=== PATIENT | male | born 1965 | race Caucasian/White ===

== ENCOUNTER 2020-03-02 17:57 | Emergency (ER) | payer BC, SELFPAY ==
[2020-03-02 18:02] VITALS: BMI 29.0
[2020-03-02 18:07] VITALS: BP 102/79; PULSE 116; RESP 40; TEMP 39.3; O2SAT 94
--- NOTE | 2020-03-02 18:20 | XR_ITS ---
WS: [id number] EXAM: AP CHEST: PORTABLE UPRIGHT DATE OF EXAM: 03/02/2020, 1837 hours COMPARISON: Chest x-ray from 09/10/2017. HISTORY: Patient is 54 years old with dyspnea. FINDINGS: The cardiac silhouette is normal in size. The mediastinal contours show interval sternotomy wires from prior surgical procedure. Otherwise similar.. The pulmonary vascularity is normal. Chronic darryl ng changes again seen. There is interval development of small amount right pleural fluid. Slight infi ltrate in the right lung base. Vast majority of this is felt to represent fibrotic change. Whether th e changes represent progression of disease versus a subtle acute pneumonitis is uncertain. An acute p neumonitis cannot be excluded. Chronic changes in the left lung without consolidation on the left. N o pneumothorax. No acute bony abnormality is seen. XR/XR chest 1V portable [id number] IMPRESSION: Chronic lung changes with underlying fibrosis felt to be present. Small new rig ht pleural effusion with some minimal increase infiltrate in the right lung bas e suggesting a superimposed small pneumonitis versus progression of disease. Rodriguez rveillance recommended.
--- NOTE | 2020-03-02 18:21 | ECG_ITS ---
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 Measurements Intervals [place] Rate: 114 P: 20 NV: 107 QRS: 25 QRSD: 103 T: 60 QT: 326 QTc: 449 Interpretive Statements SINUS TACHYCARDIA WITH SHORT NV INTERVAL ABNORMAL RHYTHM ECG No previous ECG available for comparison Electronically Signed On 03-03-2020 20:19:08 CDT by Jesus Champagne M.D. [id number]
[2020-03-02 18:42] LABS: Basophils # 0.1 10^3/uL (0.0-0.1); Basophils % 1.2 %; Eosinophils # 0.8 10^3/uL (0.0-0.8); Eosinophils % 9.1 %; Hematocrit 38.3 % (42.0-52.0); Hemoglobin 11.9 g/dL (11.7-16.6); Lymphocytes # 0.6 10^3/uL (0.8-4.8); Lymphocytes % 7.3 %; Mean Corpuscular HGB Conc 31.1 g/dL (30.0-36.0); Mean Corpuscular Hemoglobin 25.1 pg (28.0-34.0); Mean Corpuscular Volume 80.8 fL (80-94); Mean Platelet Volume 10.6 fL (7.4-10.4); Monocytes # 1.1 10^3/uL (0.2-0.9); Monocytes % 12.9 %; Neutrophils # 5.66 10^3/uL (1.8-7.7); Neutrophils % 66.9 %; Nucleated Red Blood Cells % 0 %; Platelet Count 278 10^3/cmm (130-400); Red Blood Count 4.74 10^6/uL (4.1-5.3); Red Cell Distribution Width 14.8 % (12.1-15.1); White Blood Count 8.5 10^3/uL (4.0-10.0)
[2020-03-02 18:44] LABS: ABG PCO2 27.9 mmHg (35-45); ABG PH Result 7.52 (7.35-7.45); Alveolar-Arterial Oxygen Gradi 5.5 mmHg (5-10); Arterial Blood Gas Hematocrit 36.2 % (42-52); Base Excess ABG 0.7 mmol/L (-2.0-2.0); Blood Gas Allen Test Pos; Blood Gas Operator Identificat MONRO; Blood Gas Sample Site Radial, right; Blood Gas Sample Type Arterial; Carboxyhemoglobin 1.1 %THgb (0.4-20.1); HCO3 ABG 22.7 mmol/L (22-26); HGB O2 Sat 93.7 % (95-100); Ionized Calcium Level - ABG 1.1 mmol/L (1.1-1.4); Methemoglobin 0.6 % (0.4-1.5); Oxygen Device ROOM AIR; Oxygen Saturation ABG 95.4; PO2 ABG 71.8 mmHg (80.0-100.0); Potassium Level - ABG 4.1 mmol/L (3.5-5.0); Total Hemoglobin 11.8 g/dL (14-18)
[2020-03-02 18:55] LABS: INR 1.06 (0.8-1.2)
[2020-03-02 19:07] LABS: Lactic Sepsis W/Reflex 2.3 mmol/L (0.5-2.2)
[2020-03-02 19:08] LABS: Alanine Aminotransferase 12 U/L (0-41); Albumin Level 3.3 g/dL (3.5-5.2); Alkaline Phosphatase 43 IU/L (40-130); Anion Gap 19.2 (5-19); Aspartate Amino Transferase 14 U/L (0-40); Blood Urea Nitrogen 18 mg/dL (6-20); Carbon Dioxide 21 mmol/L (22-29); Chloride 96 mmol/L (98-107); Globulin 3.3 g/dL (1.3-4.6); Glucose 143 mg/dL (65-115); Magnesium 1.3 mg/dL (1.7-2.3); Osmolality Calculated 273 mOsm/kg (285-295); Potassium 4.2 mmol/L (3.5-5.1); Sodium 132 mmol/L (136-145); Total Bilirubin 0.3 mg/dL (0.15-1.2); Total Protein 6.6 g/dL (6.6-8.7)
[2020-03-02 19:09] LABS: Troponin(5th) Baseline 24 ng/L (0-15)
[2020-03-02 19:36] LABS: Influenza A by IFA Negative (Negative); Influenza B by IFA Negative (Negative); SARS Covid-2 Antigen Negative (Negative)
[2020-03-02 19:37] LABS: Urine Appearance Clear (CLEAR); Urine Color Yellow (Yellow); pH Urine 7 (5-7)
[2020-03-02 19:38] LABS: Add Urine Culture? No; Bacteria Urine TRACE; Bilirubin Urine Neg (NEGATIVE); Blood Urine Neg (Negative); Glucose Urine UA Norm (Normal); Ketones Urine Negative (Negative); Leukocyte Esterase Urine Negative (Negative); Nitrate Urine Negative (Negative); Protein Urine Neg (Negative); Renal Epithelial Cells Urine N /hpf; Urobilinogen Urine Norm (Negative)
[2020-03-02 19:57] VITALS: BP 106/75; BP 96/53; PULSE 103; PULSE 81; RESP 20; RESP 31; TEMP 36.8; O2SAT 94; O2SAT 97
[2020-03-02] MEDS: piperacillin-tazobactam 3.375 GM in sodium chloride 0.9% (plus) 50 ML IV (20:15)
--- NOTE | 2020-03-02 20:21 | ECG_ITS ---
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 Measurements Intervals [place] Rate: 104 P: 27 DC: 120 QRS: 4 QRSD: 94 T: 48 QT: 343 QTc: 453 Interpretive Statements SINUS TACHYCARDIA ABNORMAL RHYTHM ECG Compared to ECG 03/02/2020 18:59:40 Short DC interval no longer present Electronically Signed On 03-03-2020 20:26:11 CDT by Jesus Champagne M.D. [id number]
[2020-03-02 20:24] LABS: Reflex Lactate Order REFLEX LACTIC ORDERD
--- NOTE | 2020-03-02 20:26 | ED_ITS ---
HPI - SOB/Dyspnea General: Chief Complaint: Shortness of Breath/Dyspnea Stated Complaint: GENERALIZED WEAKNESS, POSS SEPSIS Time Seen by Provider: 03/02/20 18:19 Source: patient and family Mode of arrival: wheelchair Limitations: no limitations History of Present Illness: HPI Narrative: Brandon is a nice 54-year-old male who comes in complaining of fever, dry cough and abdominal pain. Patient states that he was recently out of the hospital, just a few days ago from a double lung transplant from [facility]. 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 Patient is on immunosuppressive medication. Patient also has a perirectal drain in place that was placed at [facility] before discharge. Patient states that he has had no nausea or vomiting or diarrhea. He is denying any other specific complaints. Associated symptoms: Reports abdominal pain and fever(s); Deny chest congestion, chest pain, diaphoresis, dizziness, extremity pain, hemoptysis, lightheadedness, nausea, orthopnea, palpitations, syncope or vomiting Review of Systems Const: Reports: fever(s), chills and body aches; Denies: fatigue, malaise or diaphoresis Eyes: Denies: change in vision, blurry vision, photophobia, eye discomfort, eye discharge or eye redness ENMT: Denies: throat pain, odynophagia, hoarseness, swelling of lips/tongue, ear or mastoid pain, ear discharge, change in hearing or nasal discharge Card: Denies: chest pain, palpitations, irregular heart rhythm, edema, lightheadedness, syncope, pre-syncope, dyspnea on exertion or orthopnea Resp: Reports: dyspnea and non-productive cough; Denies: productive cough, wheezing, hemoptysis or chest congestion GI: Reports: abdominal pain; Denies: nausea, vomiting, hematemesis, coffee ground emesis, heartburn, diarrhea, constipation, GI cramping, hematochezia or melena : Denies: flank pain, dysuria, urinary frequency, urinary urgency or hematuria Musc: Denies: neck pain, back pain, extremity pain, extremity swelling, joint pain, joint swelling, joint redness, joint warmth or joint stiffness Skin/Breast: Denies: rash, pruritus, erythema or skin tenderness Neuro: Denies: headache(s), numbness in extremities, weakness in extremities, sensory changes, lack of coordination, difficulty walking, dizziness, vertigo, confusion, Slurred speech present or seizure-like activity Maldonado/Lymph: Denies: easy bruising, easy bleeding, petechiae, purpura or enlarged lymph nodes All/Imm: Denies: urticaria, throat swelling, tongue swelling, facial swelling or acute wheezing PFSH ED PFSH: Medical History DM type 2 (diabetes mellitus, type 2) History of testicular cancer Lung transplant recipient Myocardial infarction Pulmonary fibrosis Surgical History History of testicular surgery Physical Exam Const: COMMON NORMALS: no acute distress, patient oriented x3, no limitations, healthy appearing and well nourished GENERAL APPEARANCE: cooperative, well kempt and well developed HENMT: COMMON NORMALS: normocephalic, atraumatic, external ears normal, EAC's normal and Normal external nose present HEAD & SCALP: normal to inspection, normocephalic and atraumatic FACE & SINUS: normal facial exam and face symmetric NOSE: Normal external nose present and Normal nares present EXTERNAL EAR: Yes external ears normal EXTERNAL AUDITORY CANAL: EAC's normal MOUTH: Normal oral and palatal mucosa present, lip normal and tongue normal Eye: COMMON NORMALS: Equal, round and reactive pupils present and conjunctivae normal GENERAL EYE: appearance normal, both eyes and all related structures ALIGNMENT: Yes alignment normal PERIORBITAL: periorbital findings normal EYELID: eyelids normal CONJUNCTIVA: Yes conjunctivae normal SCLERA: sclerae normal PUPIL: Yes Equal, round and reactive pupils present Neck/C-Spine: COMMON NORMALS: full ROM, no lymphadenopathy, supple, no meningeal signs and no JVD GENERAL: Yes normal visual inspection and Yes trachea midline Chest: COMMONS NORMALS: normal inspection of the chest and normal palpation of entire chest wall Resp: COMMON NORMALS: normal respiratory effort, No retractions, No use of accessory muscles and clear to auscultation bilaterally EFFORT & INSPECTION: Yes able to speak in complete sentences and Yes symmetric chest movement AUSCULTATION: clear to auscultation bilaterally, no crackles, no rales, no rhonchi and no wheezes Cardio: COMMON NORMALS: no JVD, regular rate, regular rhythm, S1 normal heart sound present and S2 normal heart sound present RATE: regular rate RHYTHM: regular rhythm HEART SOUNDS: S1 normal heart sound present, S2 normal heart sound present, no click, no gallops, no murmurs, no rubs and abnormal split S2 GI: COMMON NORMALS: Soft to palpation and No hepatosplenomegaly present PALPATION: Yes Soft to palpation, No Tenderness to palpation present (GI), No Guarding due to palpation present (GI), No Rigid due to palpation, Yes No hepatosplenomegaly present, No Hernia present, No Palpable mass present, No Pulsatile mass present and Yes Other GI palpation findings present (Perirectal drain in place without any evidence of surrounding cellulitis) : COMMON NORMALS: Yes no CVA tenderness BLADDER/KIDNEY EXAM: Yes no CVA tenderness Back/Pelvis: COMMON NORMALS: no CVA tenderness, thoracic and lumbar spine normal to inspection, no thoracic nor lumbar tenderness and thoraco-lumbar ROM normal Extremity: COMMON NORMALS: normal to inspection, full ROM, capillary refill normal, no joint enlargement, no clubbing, cyanosis or edema and no calf tenderness Neuro: COMMON NORMALS: patient oriented x3, CN's II-XII intact bilaterally, moves all extremities, no focal motor deficits and no sensory deficits noted MENINGEAL SIGNS: Yes no meningeal signs SPEECH: speech normal Psych: COMMON NORMALS: mental status grossly normal, Normal thought process present, cooperative, normal affect, speech normal and activity/motor behavior normal APPEARANCE: Yes well kempt SPEECH: Yes normal speech THOUGHT PROCESS: Normal thought process present Skin: COMMON NORMALS: no rashes or lesions noted, turgor normal, no jaundice, no petechiae and no mottling GENERAL SKIN EXAM: no rashes or lesions noted and turgor normal Course Vital Signs: Vital signs: Vital Signs Temperature 98.3 F 03/02/20 19:57 Pulse Rate 81 03/02/20 19:57 Respiratory Rate 20 H 03/02/20 19:57 Blood Pressure 96/53 03/02/20 19:57 Pulse Oximetry 97 03/02/20 19:57 MDM - SOB/Dyspnea MDM Narrative: Medical decision making narrative: Arrival -Mr. Chi is a nice 54-year-old male who arrives with fever, cough, abdominal pain and is on immunosuppressive medications and a recent lung transplant recipient. Patient's blood pressure stable at this time but I will treat his fever and work-up is source of infection. Differential scans extensive including neutropenic fever, pneumonia, abdominal source for infection among many others. We will go ahead and medicate the patient for pain and fever as well. Transfer -Case reviewed with Dr. Melara out of [facility] he agrees to accept the patient in transfer. The patient is clinically stable at this time without hypotension but there is no definitive source for his infection. He agreed with empiric coverage with Zosyn and vancomycin. Will await further bed number for transfer. Lab Data: Attestation: I reviewed the patient's lab results. Labs: Lab Results 03/02/20 03/02/20 03/02/20 Range/Units 18:30 18:30 18:30 WBC 8.5 (4.0-10.0) 10^3/ uL RBC 4.74 (4.1-5.3) 10^6/u L Hgb 11.9 (11.7-16.6) g/dL Hct 38.3 L (42.0-52.0) % MCV 80.8 (80-94) fL MCH 25.1 L (28.0-34.0) pg MCHC 31.1 (30.0-36.0) g/dL RDW 14.8 (12.1-15.1) % Plt Count 278 (130-400) 10^3/c mm MPV 10.6 H (7.4-10.4) fL Neut % (Auto) 66.9 % Lymph % (Auto) 7.3 % Barren % (Auto) 12.9 % Eos % (Auto) 9.1 % Baso % (Auto) 1.2 % Neut # (Auto) 5.66 (1.8-7.7) 10^3/u L Lymph # (Auto) 0.6 L (0.8-4.8) 10^3/u L Barren # (Auto) 1.1 H (0.2-0.9) 10^3/u L Eos # (Auto) 0.8 (0.0-0.8) 10^3/u L Baso # (Auto) 0.1 (0.0-0.1) 10^3/u L Nucleated RBC % (a uto) 0 % Nucleated RBCs # 0.0 /100WBC PT 14.20 (12.1-14.9) SECO NDS INR 1.06 (0.8-1.2) Specimen Type Sample Site ABG pH (7.35-7.45) ABG pCO2 (35-45) mmHg ABG pO2 (80.0-100.0) mmH g ABG HCO3 (22-26) mmol/L ABG O2 Saturation ABG Base Excess (-2.0-2.0) mmol/ L Kash Test A-a O2 Gradient (5-10) mmHg Hematocrit (42-52) % Hgb O2 Saturation (95-100) % Carboxyhemoglobin (0.4-20.1) %THgb Methemoglobin (0.4-1.5) % Total Hemoglobin (14-18) g/dL Ionized Calcium (1.1-1.4) mmol/L O2 Delivery Device Methods Specialist ID Sodium 132 L (136-145) mmol/L Potassium 4.2 (3.5-5.1) mmol/L Chloride 96 L (98-107) mmol/L Carbon Dioxide 21 L (22-29) mmol/L Anion Gap 19.2 H (5-19) BUN 18 (6-20) mg/dL Creatinine 0.8 (0.7-1.2) mg/dL GFR Calculation 100.0 (90-130) mL/min Glucose 143 H (65-115) mg/dL Calculated Osmolal ity 273 L (285-295) mOsm/k g Lactic Acid (0.5-2.2) mmol/L Calcium 9.0 (8.5-10.5) mg/dL Magnesium 1.3 L (1.7-2.3) mg/dL Total Bilirubin 0.3 (0.15-1.2) mg/dL AST 14 (0-40) U/L ALT 12 (0-41) U/L Alkaline Phosphata se 43 (40-130) IU/L Troponin T Baselin e (0-15) ng/L Troponin T 120 Min cabazon (0-15) ng/L Delta Troponin T (0-10) ABS# Total Protein 6.6 (6.6-8.7) g/dL Albumin 3.3 L (3.5-5.2) g/dL Globulin 3.3 (1.3-4.6) g/dL Urine Color (Yellow) Urine Appearance (CLEAR) Urine pH (5-7) Ur Specific Gravit y (1.005-1.030) Urine Protein (Negative) Urine Glucose (UA) (Normal) Urine Ketones (Negative) Urine Blood (Negative) Urine Nitrate (Negative) Urine Bilirubin (NEGATIVE) Urine Urobilinogen (Negative) mg/dL Ur Leukocyte Em ase (Negative) Urine RBC (0-2) /hpf Urine WBC (0-5) /hpf Ur Squamous Epith Cells (0-5) Ur Transition Epit h Cell /hpf Ur Renal Epithelia l Cell /hpf Amorphous Sediment Urine Bacteria (NONE) Influenza Type A A g (Negative) Influenza Type B A g (Negative) SARS-CoV-2 Ag (Rap id) (Negative) 03/02/20 03/02/20 03/02/20 Range/Units 18:30 18:30 18:31 WBC (4.0-10.0) 10^3/ uL RBC (4.1-5.3) 10^6/u L Hgb (11.7-16.6) g/dL Hct (42.0-52.0) % MCV (80-94) fL MCH (28.0-34.0) pg MCHC (30.0-36.0) g/dL RDW (12.1-15.1) % Plt Count (130-400) 10^3/c mm MPV (7.4-10.4) fL Neut % (Auto) % Lymph % (Auto) % Barren % (Auto) % Eos % (Auto) % Baso % (Auto) % Neut # (Auto) (1.8-7.7) 10^3/u L Lymph # (Auto) (0.8-4.8) 10^3/u L Barren # (Auto) (0.2-0.9) 10^3/u L Eos # (Auto) (0.0-0.8) 10^3/u L Baso # (Auto) (0.0-0.1) 10^3/u L Nucleated RBC % (a uto) % Nucleated RBCs # /100WBC PT (12.1-14.9) SECO NDS INR (0.8-1.2) Specimen Type Arterial Sample Site Radial, right ABG pH 7.52 H (7.35-7.45) ABG pCO2 27.9 L (35-45) mmHg ABG pO2 71.8 L (80.0-100.0) mmH g ABG HCO3 22.7 (22-26) mmol/L ABG O2 Saturation 95.4 ABG Base Excess 0.7 (-2.0-2.0) mmol/ L Kash Test Pos A-a O2 Gradient 5.5 (5-10) mmHg Hematocrit 36.2 L (42-52) % Hgb O2 Saturation 93.7 L (95-100) % Carboxyhemoglobin 1.1 (0.4-20.1) %THgb Methemoglobin 0.6 (0.4-1.5) % Total Hemoglobin 11.8 L (14-18) g/dL Ionized Calcium 1.1 (1.1-1.4) mmol/L O2 Delivery Device Room air Methods Specialist ID [place] Sodium 133.0 (136-145) mmol/L Potassium 4.1 (3.5-5.1) mmol/L Chloride (98-107) mmol/L Carbon Dioxide (22-29) mmol/L Anion Gap (5-19) BUN (6-20) mg/dL Creatinine (0.7-1.2) mg/dL GFR Calculation (90-130) mL/min Glucose 151.0 H (65-115) mg/dL Calculated Osmolal ity (285-295) mOsm/k g Lactic Acid 2.3 H (0.5-2.2) mmol/L Calcium (8.5-10.5) mg/dL Magnesium (1.7-2.3) mg/dL Total Bilirubin (0.15-1.2) mg/dL AST (0-40) U/L ALT (0-41) U/L Alkaline Phosphata se (40-130) IU/L Troponin T Baselin e 24 H (0-15) ng/L Troponin T 120 Min cabazon (0-15) ng/L Delta Troponin T (0-10) ABS# Total Protein (6.6-8.7) g/dL Albumin (3.5-5.2) g/dL Globulin (1.3-4.6) g/dL Urine Color (Yellow) Urine Appearance (CLEAR) Urine pH (5-7) Ur Specific Gravit y (1.005-1.030) Urine Protein (Negative) Urine Glucose (UA) (Normal) Urine Ketones (Negative) Urine Blood (Negative) Urine Nitrate (Negative) Urine Bilirubin (NEGATIVE) Urine Urobilinogen (Negative) mg/dL Ur Leukocyte Em ase (Negative) Urine RBC (0-2) /hpf Urine WBC (0-5) /hpf Ur Squamous Epith Cells (0-5) Ur Transition Epit h Cell /hpf Ur Renal Epithelia l Cell /hpf Amorphous Sediment Urine Bacteria (NONE) Influenza Type A A g (Negative) Influenza Type B A g (Negative) SARS-CoV-2 Ag (Rap id) (Negative) 03/02/20 03/02/20 03/02/20 Range/Units 18:42 18:56 18:56 WBC (4.0-10.0) 10^3/ uL RBC (4.1-5.3) 10^6/u L Hgb (11.7-16.6) g/dL Hct (42.0-52.0) % MCV (80-94) fL MCH (28.0-34.0) pg MCHC (30.0-36.0) g/dL RDW (12.1-15.1) % Plt Count (130-400) 10^3/c mm MPV (7.4-10.4) fL Neut % (Auto) % Lymph % (Auto) % Barren % (Auto) % Eos % (Auto) % Baso % (Auto) % Neut # (Auto) (1.8-7.7) 10^3/u L Lymph # (Auto) (0.8-4.8) 10^3/u L Barren # (Auto) (0.2-0.9) 10^3/u L Eos # (Auto) (0.0-0.8) 10^3/u L Baso # (Auto) (0.0-0.1) 10^3/u L Nucleated RBC % (a uto) % Nucleated RBCs # /100WBC PT (12.1-14.9) SECO NDS INR (0.8-1.2) Specimen Type Sample Site ABG pH (7.35-7.45) ABG pCO2 (35-45) mmHg ABG pO2 (80.0-100.0) mmH g ABG HCO3 (22-26) mmol/L ABG O2 Saturation ABG Base Excess (-2.0-2.0) mmol/ L Kash Test A-a O2 Gradient (5-10) mmHg Hematocrit (42-52) % Hgb O2 Saturation (95-100) % Carboxyhemoglobin (0.4-20.1) %THgb Methemoglobin (0.4-1.5) % Total Hemoglobin (14-18) g/dL Ionized Calcium (1.1-1.4) mmol/L O2 Delivery Device Methods Specialist ID Sodium (136-145) mmol/L Potassium (3.5-5.1) mmol/L Chloride (98-107) mmol/L Carbon Dioxide (22-29) mmol/L Anion Gap (5-19) BUN (6-20) mg/dL Creatinine (0.7-1.2) mg/dL GFR Calculation (90-130) mL/min Glucose (65-115) mg/dL Calculated Osmolal ity (285-295) mOsm/k g Lactic Acid (0.5-2.2) mmol/L Calcium (8.5-10.5) mg/dL Magnesium (1.7-2.3) mg/dL Total Bilirubin (0.15-1.2) mg/dL AST (0-40) U/L ALT (0-41) U/L Alkaline Phosphata se (40-130) IU/L Troponin T Baselin e (0-15) ng/L Troponin T 120 Min cabazon (0-15) ng/L Delta Troponin T (0-10) ABS# Total Protein (6.6-8.7) g/dL Albumin (3.5-5.2) g/dL Globulin (1.3-4.6) g/dL Urine Color Yellow (Yellow) Urine Appearance Clear (CLEAR) Urine pH 7 (5-7) Ur Specific Gravit y 1.010 (1.005-1.030) Urine Protein Neg (Negative) Urine Glucose (UA) Norm (Normal) Urine Ketones Negative (Negative) Urine Blood Neg (Negative) Urine Nitrate Negative (Negative) Urine Bilirubin Neg (NEGATIVE) Urine Urobilinogen Norm (Negative) mg/dL Ur Leukocyte Em ase Negative (Negative) Urine RBC None (0-2) /hpf Urine WBC None (0-5) /hpf Ur Squamous Epith Cells None (0-5) Ur Transition Epit h Cell None /hpf Ur Renal Epithelia l Cell N /hpf Amorphous Sediment Not Reportable Urine Bacteria Trace (NONE) Influenza Type A A g Negative (Negative) Influenza Type B A g Negative (Negative) SARS-CoV-2 Ag (Rap id) Negative (Negative) 03/02/20 Range/Units 20:05 WBC (4.0-10.0) 10^3/ uL RBC (4.1-5.3) 10^6/u L Hgb (11.7-16.6) g/dL Hct (42.0-52.0) % MCV (80-94) fL MCH (28.0-34.0) pg MCHC (30.0-36.0) g/dL RDW (12.1-15.1) % Plt Count (130-400) 10^3/c mm MPV (7.4-10.4) fL Neut % (Auto) % Lymph % (Auto) % Barren % (Auto) % Eos % (Auto) % Baso % (Auto) % Neut # (Auto) (1.8-7.7) 10^3/u L Lymph # (Auto) (0.8-4.8) 10^3/u L Barren # (Auto) (0.2-0.9) 10^3/u L Eos # (Auto) (0.0-0.8) 10^3/u L Baso # (Auto) (0.0-0.1) 10^3/u L Nucleated RBC % (a uto) % Nucleated RBCs # /100WBC PT (12.1-14.9) SECO NDS INR (0.8-1.2) Specimen Type Sample Site ABG pH (7.35-7.45) ABG pCO2 (35-45) mmHg ABG pO2 (80.0-100.0) mmH g ABG HCO3 (22-26) mmol/L ABG O2 Saturation ABG Base Excess (-2.0-2.0) mmol/ L Kash Test A-a O2 Gradient (5-10) mmHg Hematocrit (42-52) % Hgb O2 Saturation (95-100) % Carboxyhemoglobin (0.4-20.1) %THgb Methemoglobin (0.4-1.5) % Total Hemoglobin (14-18) g/dL Ionized Calcium (1.1-1.4) mmol/L O2 Delivery Device Methods Specialist ID Sodium (136-145) mmol/L Potassium (3.5-5.1) mmol/L Chloride (98-107) mmol/L Carbon Dioxide (22-29) mmol/L Anion Gap (5-19) BUN (6-20) mg/dL Creatinine (0.7-1.2) mg/dL GFR Calculation (90-130) mL/min Glucose (65-115) mg/dL Calculated Osmolal ity (285-295) mOsm/k g Lactic Acid (0.5-2.2) mmol/L Calcium (8.5-10.5) mg/dL Magnesium (1.7-2.3) mg/dL Total Bilirubin (0.15-1.2) mg/dL AST (0-40) U/L ALT (0-41) U/L Alkaline Phosphata se (40-130) IU/L Troponin T Baselin e (0-15) ng/L Troponin T 120 Min cabazon 24.27 H (0-15) ng/L Delta Troponin T 0.27 (0-10) ABS# Total Protein (6.6-8.7) g/dL Albumin (3.5-5.2) g/dL Globulin (1.3-4.6) g/dL Urine Color (Yellow) Urine Appearance (CLEAR) Urine pH (5-7) Ur Specific Gravit y (1.005-1.030) Urine Protein (Negative) Urine Glucose (UA) (Normal) Urine Ketones (Negative) Urine Blood (Negative) Urine Nitrate (Negative) Urine Bilirubin (NEGATIVE) Urine Urobilinogen (Negative) mg/dL Ur Leukocyte Em ase (Negative) Urine RBC (0-2) /hpf Urine WBC (0-5) /hpf Ur Squamous Epith Cells (0-5) Ur Transition Epit h Cell /hpf Ur Renal Epithelia l Cell /hpf Amorphous Sediment Urine Bacteria (NONE) Influenza Type A A g (Negative) Influenza Type B A g (Negative) SARS-CoV-2 Ag (Rap id) (Negative) Imaging Data^: CXR: Attestation: I personally reviewed and interpreted this imaging study as follows: My impression: No acute cardiopulmonary findings. CT Abd/Pel: Radiologist's impression: [facility] [address] [place] [address] CT Scan Report Signed Patient: Brandon Chi Unit #: [id number] : 1965 Age/Sex: 54 / M ADM Date: 03/02/20 Loc: ER Room/Bed: Attending Dr: Ordering Provider/Ordering MD: Julita Garcia DO Date of Service: 03/02/20 Procedure(s): CT abdomen pelvis w con* [id number] Accession Number(s): [id number] Report Number: [id number] PROCEDURE INFORMATION: Exam: CT Abdomen And Pelvis With Contrast Exam date and time: 03/02/2020 9:19 PM Age: 54 years old Clinical indication: Pain; Additional info: Abdominal pain TECHNIQUE: Imaging protocol: Computed tomography of the abdomen and pelvis with intravenous contrast. Radiation optimization: All CT scans at this facility use at least one of these dose optimization techniques: automated exposure control; mA and/or kV adjustment per patient size (includes targeted exams where dose is matched to clinical indication); or iterative reconstruction. Contrast material: OMNI 300; Contrast volume: 95 ml; Contrast route: INTRAVENOUS (IV); COMPARISON: [facility] Abdomen 09/24/2017 9:04 AM RADIATION DOSE METRICS: Total DLP (mGy-cm): 1286.11 FINDINGS: Pleural space: Small bilateral pleural effusions. Liver: Normal. No mass. Gallbladder and bile ducts: Normal. No calcified stones. No ductal dilation. Pancreas: Normal. No ductal dilation. Spleen: Normal. No splenomegaly. Adrenals: Normal. No mass. Kidneys and ureters: Left kidney renal cysts, no follow-up advised. Stomach and bowel: Unremarkable. No obstruction. No mucosal thickening. Appendix: No evidence of appendicitis. Intraperitoneal space: Unremarkable. No free air. No significant fluid collection. Vasculature: Unremarkable. No abdominal aortic aneurysm. Lymph nodes: Scattered enlarged retroperitoneal para-aortic lymph nodes measuring up to 2.9 cm with some surrounding edema concerning for malignancy, however, an infectious or inflammatory process are also considerations. Bladder: Unremarkable as visualized. Reproductive: Unremarkable as visualized. Bones/joints: Unremarkable. No acute fracture. Soft tissues: Unremarkable. CT/CT abdomen pelvis w con* [id number] IMPRESSION: 1. Scattered enlarged retroperitoneal para-aortic lymph nodes measuring up to 2.9 cm with some surrounding edema concerning for malignancy, however, an infectious or inflammatory process are also considerations. 2. Small bilateral pleural effusions. 3. Left kidney renal cysts, no follow-up advised. Radiation Dose CTDIVOL = (mGy): DLP = 1286.11 (mGy-cm) Dictated By: Sachin Vazquez MD Signed By: Sachin Vazquez MD Signed Date/Time: 03/02/202158 DD/ 56 EKG Data^: EKG 1: Attestation: I personally reviewed and interpreted this EKG as follows: EKG Interpretation Date: 03/02/20 EKG interpretation time: 18:59 Interpretation: Sinus tachycardia at 140 beats a minute, short ND interval, normal axis, QTC. No acute ST-T wave changes. EKG 2: Attestation: I personally reviewed and interpreted this EKG as follows: EKG Interpretation Date: 03/02/20 EKG interpretation time: 19:54 Interpretation: Sinus tachycardia at 104 beats a minute, normal axis, no blocks, normal intervals. Discharge Plan Discharge Patient Disposition: Xfer Short-Term Hosp Clinical Impression: Sepsis Qualifiers: Sepsis type: sepsis due to unspecified organism Sepsis acute organ dysfunction status: unspecified Qualified Code(s): A41.9 - Sepsis, unspecified organism Condition: Stable Referrals: Solomon Farrell MD [Primary Care Provider] - Coding Level of Care Code ED [employer] for Chg Fwd Exam Comprehensive
[2020-03-02 20:34] LABS: Troponin 5 2HR 24.27 ng/L (0-15); Troponin 5 2HR Delta 0.27 ABS# (0-10)
[2020-03-02] MEDS: magnesium sulfate premix 2 GM/50 ML PIGGYBACK IV (20:36)
--- NOTE | 2020-03-02 20:39 | CTR_ITS ---
PROCEDURE INFORMATION: Exam: CT Abdomen And Pelvis With Contrast Exam date and time: 03/02/2020 9:19 PM Age: 54 years old Clinical indication: Pain; Additional info: Abdominal pain TECHNIQUE: Imaging protocol: Computed tomography of the abdomen and pelvis with intravenous contrast. Radiation optimization: All CT scans at this facility use at least one of these dose optimization techniques: automated exposure control; mA and/or kV adjustment per patient size (includes targeted exams where dose is matched to clinical indication); or iterative reconstruction. Contrast material: OMNI 300; Contrast volume: 95 ml; Contrast route: INTRAVENOUS (IV); [place] [facility] [place]/24/[place] 9:04 AM RADIATION DOSE METRICS: Total DLP (mGy-cm): 1286.11 FINDINGS: Pleural space: Small bilateral pleural effusions. Liver: Normal. No mass. Gallbladder and bile ducts: Normal. No calcified stones. No ductal dilation. Pancreas: Normal. No ductal dilation. Spleen: Normal. No splenomegaly. Adrenals: Normal. No mass. Kidneys and ureters: Left kidney renal cysts, no follow-up advised. Stomach and bowel: Unremarkable. No obstruction. No mucosal thickening. Appendix: No evidence of appendicitis. Intraperitoneal space: Unremarkable. No free air. No significant fluid collection. Vasculature: Unremarkable. No abdominal aortic aneurysm. Lymph nodes: Scattered enlarged retroperitoneal para-aortic lymph nodes measuring up to 2.9 cm with some surrounding edema concerning for malignancy, however, an infectious or inflammatory process are also considerations. Bladder: Unremarkable as visualized. Reproductive: Unremarkable as visualized. Bones/joints: Unremarkable. No acute fracture. Soft tissues: Unremarkable. CT/CT abdomen pelvis w con* [id number] IMPRESSION: 1. Scattered enlarged retroperitoneal para-aortic lymph nodes measuring up to 2.9 cm with some surrounding edema concerning for malignancy, however, an infectious or inflammatory process are also considerations. 2. Small bilateral pleural effusions. 3. Left kidney renal cysts, no follow-up advised. Radiation Dose CTDIVOL = (mGy): DLP = 1286.11 (mGy-cm)
[2020-03-02 21:30] VITALS: BP 98/57; PULSE 87; RESP 26; O2SAT 94
[2020-03-02] MEDS: iohexol 300 mg/mL 100 mL Btl IV (21:44)
[2020-03-02] MEDS: ondansetron 2 mg/ML SDV 2 mL 4 MG IVP (22:16)
[2020-03-02 22:30] VITALS: BP 97/62; PULSE 78; RESP 17; O2SAT 96
[2020-03-02 22:44] VITALS: RESP 21; O2SAT 96
[2020-03-02] MEDS: morphine 4 mg/mL SDV 1 mL IVP (22:44)
--- NOTE | 2020-03-02 23:04 | PC.NURSE ---
REPORT GIVEN TO ALYSSA JOE ASSUMED CARE.
--- NOTE | 2020-03-03 00:21 | ECG_ITS ---
[facility] Test Date: 2020-03-03 Pat Name: Brandon Chi Department: Room: Gender: Male Privacy Director: : 1965 Requested By: Julita Bone Order Number: [id number] Barrios MD: Jesus Champagne M.D. Measurements Intervals [place] Rate: 80 P: 37 NV: 135 QRS: 17 QRSD: 97 T: 81 QT: 384 QTc: 445 Interpretive Statements SINUS RHYTHM Compared to ECG 03/02/2020 19:54:06 Sinus tachycardia no longer present Electronically Signed On 03-03-2020 20:26:30 CDT by Jesus Champagne M.D. [id number]
[2020-03-03 00:22] LABS: Troponin 5 6HR 21.25 ng/L (0-15)
[2020-03-03 00:25] LABS: Troponin 5 6HR Delta -2.75 ng/L (0-12)
[2020-03-03 00:39] LABS: Lactic Acid level (Lactate) 0.8 mmol/L (0.5-2.2)
[2020-03-03] MEDS: morphine 4 mg/mL SDV 1 mL IVP ×2 (01:47→05:39)
[2020-03-03 02:17] VITALS: BP 127/92; PULSE 80; RESP 14; O2SAT 98
[2020-03-03 03:36] VITALS: BP 130/83; PULSE 100; RESP 16; TEMP 36.8; O2SAT 95
--- NOTE | 2020-03-03 03:36 | PC.NURSE ---
Had House Sup bring down a Hospital bed for this patient and we moved him over to it for comfort.
[2020-03-03 05:33] VITALS: BP 102/58; PULSE 108; RESP 14; O2SAT 94
[2020-03-03 05:39] VITALS: RESP 18
[2020-03-03 06:35] VITALS: BP 112/66; PULSE 97; RESP 22; TEMP 36.8; O2SAT 94
[2020-03-03 07:32] VITALS: BP 117/89; PULSE 95; RESP 21; TEMP 37.3; O2SAT 93
== END 2020-03-03 08:04 | disposition short-term general hospital (02) ==
PROVIDERS: Emergency Provider Emergency Medicine; PCP Family Medicine
DX: A41.9 Sepsis, unspecified organism (principal); E11.9 Type 2 diabetes mellitus without complications; Z85.47 Personal history of malignant neoplasm of testis; Z94.2 Lung transplant status; I25.2 Old myocardial infarction
CPT/HCPCS: 12345; 36415; 36600; 71045; 74177; 80051; 80053; 81001; 82810; 83605; 83735; 83986; 84484; 85025; 85610; 87040; 87426; 87804; 93005; 96365; 96366; 96367; 96368; 96375; 96376; 99284; 99285; J0131; J0743; J2270; J2405; J2543; J3370; J3475; J7030; J7040; Q9967

== ENCOUNTER 2020-03-18 13:09 | Outpatient (CLI) | payer BC, SELFPAY ==
[2020-03-18 13:56] LABS: Basophils # 0.1 10^3/uL (0.0-0.1); Basophils % 0.9 %; Eosinophils # 0.1 10^3/uL (0.0-0.8); Eosinophils % 1.2 %; Hemoglobin 11.9 g/dL (11.7-16.6); Lymphocytes # 0.8 10^3/uL (0.8-4.8); Lymphocytes % 11.9 %; Mean Corpuscular HGB Conc 29.8 g/dL (30.0-36.0); Mean Corpuscular Hemoglobin 24.8 pg (28.0-34.0); Mean Corpuscular Volume 83.5 fL (80-94); Monocytes # 0.4 10^3/uL (0.2-0.9); Monocytes % 6.1 %; Neutrophils % 78.4 %; Nucleated Red Blood Cells % 0 %; Platelet Count 266 10^3/cmm (130-400); Red Blood Count 4.79 10^6/uL (4.1-5.3); Red Cell Distribution Width 16.1 % (12.1-15.1); White Blood Count 6.9 10^3/uL (4.0-10.0)
[2020-03-18 14:15] LABS: Alanine Aminotransferase 27 U/L (0-41); Albumin Level 3.8 g/dL (3.5-5.2); Alkaline Phosphatase 57 IU/L (40-130); Anion Gap 15.5 (5-19); Aspartate Amino Transferase 21 U/L (0-40); Blood Urea Nitrogen 16 mg/dL (6-20); Calcium 9.9 mg/dL (8.5-10.5); Carbon Dioxide 25 mmol/L (22-29); Chloride 105 mmol/L (98-107); Globulin 3.6 g/dL (1.3-4.6); Glomerular Filtration Rate 77.3 mL/min (90-130); Glucose 102 mg/dL (65-115); Osmolality Calculated 289 mOsm/kg (285-295); Potassium 4.5 mmol/L (3.5-5.1); Sodium 141 mmol/L (136-145); Total Bilirubin 0.2 mg/dL (0.15-1.2); Total Protein 7.4 g/dL (6.6-8.7)
[2020-03-22 22:07] LABS: CMV DNA By PCR <200 IU/mL; CMV DNA, QN PCR <2.30 Log IU/mL; SOURCE NOT GIVEN
== END 2020-03-18 13:10 | disposition home or self-care (01) ==
PROVIDERS: PCP Family Medicine; Visit Provider Internal Medicine Pulmonary Disease
DX: Z94.2 Lung transplant status (principal); Z48.24 Encounter for aftercare following lung transplant; Z51.81 Encounter for therapeutic drug level monitoring
CPT/HCPCS: 80053; 80197; 85025; 87496

== ENCOUNTER 2020-08-10 12:01 | Outpatient (RCR) | payer BC, SELFPAY ==
[2020-07-27] MEDS: ferric gluconate 125 MG in sodium chloride 0.9% (100 ml) 100 ML 110 MG IV (10:31)
[2020-07-27 10:36] VITALS: BP 133/80; PULSE 62; RESP 18; TEMP 36.3; O2SAT 98
[2020-08-03] MEDS: ferric gluconate 125 MG in sodium chloride 0.9% (100 ml) 100 ML 110 MG IV (10:40)
[2020-08-03 10:44] VITALS: BP 110/76; PULSE 64; RESP 18; TEMP 36.1; O2SAT 97; BMI 29.1
[2020-08-10 12:10] VITALS: BP 114/78; PULSE 64; RESP 18; TEMP 35.7; O2SAT 97
[2020-08-10] MEDS: ferric gluconate 125 MG in sodium chloride 0.9% (100 ml) 100 ML 110 MG IV (12:40)
== END 2020-08-15 23:59 | disposition home or self-care (01) ==
LOC: OPS 12:01
PROVIDERS: PCP Family Medicine; Visit Provider Family Medicine
DX: E61.1 Iron deficiency (principal)
CPT/HCPCS: 96365; J2916

== ENCOUNTER → 2020-08-24 10:47 | Day surgery (SDC) | payer BC, SELFPAY ==
[2020-08-31] MEDS: ferric gluconate 125 MG in sodium chloride 0.9% (100 ml) 100 ML 110 MG IV (11:07)
[2020-08-31 11:26] VITALS: BP 144/85; PULSE 73; RESP 18; TEMP 36.6; O2SAT 98
== END ==
PROVIDERS: PCP Family Medicine; Visit Provider Family Medicine
DX: D50.9 Iron deficiency anemia, unspecified (principal)
CPT/HCPCS: J2916

== ENCOUNTER 2020-09-07 10:53 | Outpatient (RCR) | payer BC, SELFPAY ==
[2020-08-17 11:20] VITALS: BP 105/72; PULSE 63; RESP 18; TEMP 36.4; O2SAT 99
[2020-08-17] MEDS: ferric gluconate 125 MG in sodium chloride 0.9% (100 ml) 100 ML 110 MG IV (11:21)
[2020-08-24 11:25] VITALS: BP 124/80; PULSE 67; RESP 18; TEMP 37.1; O2SAT 98
[2020-08-24 11:28] VITALS: BMI 28.8
[2020-08-24] MEDS: ferric gluconate 125 MG in sodium chloride 0.9% (100 ml) 100 ML 110 MG IV (11:55)
[2020-09-07] MEDS: ferric gluconate 125 MG in sodium chloride 0.9% (100 ml) 100 ML 110 MG IV (11:15)
[2020-09-07 11:20] VITALS: BP 125/77; PULSE 71; RESP 20; TEMP 36.1; O2SAT 96; BMI 28.8
== END 2020-09-12 23:59 | disposition home or self-care (01) ==
LOC: OPS 10:53
PROVIDERS: PCP Family Medicine; Visit Provider Family Medicine
DX: D50.9 Iron deficiency anemia, unspecified (principal)
CPT/HCPCS: 96365; J2916

== ENCOUNTER 2020-09-14 10:43 | Outpatient (RCR) | payer BC, SELFPAY ==
[2020-09-14] MEDS: ferric gluconate 125 MG in sodium chloride 0.9% (100 ml) 100 ML 110 MG IV (10:59)
[2020-09-14 13:34] VITALS: BP 145/78; PULSE 98; RESP 18; TEMP 36.6; O2SAT 97
== END 2020-10-13 23:59 | disposition home or self-care (01) ==
LOC: OPS 10:43
PROVIDERS: PCP Family Medicine; Visit Provider Family Medicine
DX: D50.9 Iron deficiency anemia, unspecified (principal)
CPT/HCPCS: 96365; J2916

== ENCOUNTER 2020-12-01 14:17 | Outpatient (CLI) | payer BC, SELFPAY ==
[2020-12-01 15:01] LABS: Basophils % 0.3 %; Eosinophils % 0.3 %; Hematocrit 42.8 % (42.0-52.0); Lymphocytes # 0.7 10^3/uL (0.8-4.8); Lymphocytes % 9.2 %; Mean Corpuscular HGB Conc 32.7 g/dL (30.0-36.0); Mean Corpuscular Hemoglobin 31.3 pg (28.0-34.0); Mean Corpuscular Volume 95.5 fL (80-94); Mean Platelet Volume 12.6 fL (7.4-10.4); Monocytes # 0.9 10^3/uL (0.2-0.9); Monocytes % 11.6 %; Neutrophils % 77.1 %; Nucleated Red Blood Cells % 0 %; Platelet Count 110 10^3/cmm (130-400); Red Blood Count 4.48 10^6/uL (4.1-5.3); Red Cell Distribution Width 12.9 % (12.1-15.1); White Blood Count 7.4 10^3/uL (4.0-10.0)
[2020-12-04 00:42] LABS: CMV DNA By PCR <200 IU/mL; CMV DNA, QN PCR <2.30 Log IU/mL; SOURCE WHOLE BLOOD
== END 2020-12-01 14:18 | disposition home or self-care (01) ==
LOC: LAB 14:19
PROVIDERS: PCP Family Medicine; Visit Provider Internal Medicine Pulmonary Disease
DX: Z48.24 Encounter for aftercare following lung transplant (principal)
CPT/HCPCS: 85025; 87496

== ENCOUNTER 2020-12-23 14:08 | Outpatient (CLI) | payer BC, SELFPAY ==
[2020-12-23 15:46] LABS: Basophils % 0.6 %; Eosinophils % 0.3 %; Hematocrit 43.3 % (42.0-52.0); Lymphocytes # 1.8 10^3/uL (0.8-4.8); Lymphocytes % 29.1 %; Mean Corpuscular HGB Conc 32.3 g/dL (30.0-36.0); Mean Corpuscular Hemoglobin 29.5 pg (28.0-34.0); Mean Corpuscular Volume 91.4 fL (80-94); Monocytes # 0.5 10^3/uL (0.2-0.9); Monocytes % 8.2 %; Neutrophils # 3.85 10^3/uL (1.8-7.7); Neutrophils % 60.9 %; Nucleated Red Blood Cells % 0 %; Platelet Count 93 10^3/cmm (130-400); Red Blood Count 4.74 10^6/uL (4.1-5.3); Red Cell Distribution Width 12.2 % (12.1-15.1); White Blood Count 6.3 10^3/uL (4.0-10.0)
[2020-12-23 16:36] LABS: Slide Review Slide Review Perform
== END 2020-12-23 14:09 | disposition home or self-care (01) ==
PROVIDERS: PCP Family Medicine; Visit Provider Internal Medicine Pulmonary Disease
DX: Z48.24 Encounter for aftercare following lung transplant (principal)
CPT/HCPCS: 36415; 85025

== ENCOUNTER 2020-12-29 15:21 | Outpatient (CLI) | payer BC, SELFPAY ==
[2021-01-02 07:49] LABS: CMV DNA By PCR 38142 IU/mL; CMV DNA, QN PCR 4.58 Log IU/mL; SOURCE WHOLE BLOOD
== END 2020-12-29 15:22 | disposition home or self-care (01) ==
LOC: LAB 15:25
PROVIDERS: PCP Family Medicine; Visit Provider Internal Medicine Pulmonary Disease
DX: Z48.24 Encounter for aftercare following lung transplant (principal)
CPT/HCPCS: 87496

== ENCOUNTER 2021-01-10 11:38 | Outpatient (CLI) | payer BC, SELFPAY ==
[2021-01-10 12:31] LABS: Basophils % 0.3 %; Eosinophils # 0.1 10^3/uL (0.0-0.8); Hematocrit 43.3 % (42.0-52.0); Hemoglobin 13.8 g/dL (11.7-16.6); Lymphocytes # 2.2 10^3/uL (0.8-4.8); Lymphocytes % 35.7 %; Mean Corpuscular HGB Conc 31.9 g/dL (30.0-36.0); Mean Corpuscular Hemoglobin 28.7 pg (28.0-34.0); Mean Platelet Volume 11.7 fL (7.4-10.4); Monocytes # 0.2 10^3/uL (0.2-0.9); Monocytes % 2.9 %; Nucleated Red Blood Cells % 0 %; Platelet Count 108 10^3/cmm (130-400); Red Blood Count 4.81 10^6/uL (4.1-5.3); Red Cell Distribution Width 12.5 % (12.1-15.1); White Blood Count 6.1 10^3/uL (4.0-10.0)
[2021-01-14 10:12] LABS: CMV DNA By PCR 7605 IU/mL; CMV DNA, QN PCR 3.88 Log IU/mL; SOURCE EDTA WHOLE BLOOD
== END 2021-01-10 11:39 | disposition home or self-care (01) ==
LOC: LAB 11:39
PROVIDERS: PCP Family Medicine; Visit Provider Internal Medicine Pulmonary Disease
DX: Z48.24 Encounter for aftercare following lung transplant (principal)
CPT/HCPCS: 36415; 85025; 87496

== ENCOUNTER 2021-02-08 10:35 | Outpatient (RCR) | payer BC, SELFPAY ==
[2021-01-19 11:21] LABS: Basophils % 0.4 %; Eosinophils % 0.8 %; Hematocrit 40.7 % (42.0-52.0); Hemoglobin 13.1 g/dL (11.7-16.6); Lymphocytes # 2.4 10^3/uL (0.8-4.8); Lymphocytes % 49.3 %; Mean Corpuscular HGB Conc 32.2 g/dL (30.0-36.0); Mean Corpuscular Hemoglobin 28.9 pg (28.0-34.0); Mean Corpuscular Volume 89.8 fL (80-94); Mean Platelet Volume 11.3 fL (7.4-10.4); Monocytes # 0.2 10^3/uL (0.2-0.9); Monocytes % 4.2 %; Neutrophils # 2.16 10^3/uL (1.8-7.7); Neutrophils % 44.9 %; Nucleated Red Blood Cells % 0 %; Platelet Count 104 10^3/cmm (130-400); Red Blood Count 4.53 10^6/uL (4.1-5.3); Red Cell Distribution Width 12.5 % (12.1-15.1); White Blood Count 4.8 10^3/uL (4.0-10.0)
[2021-02-08 10:57] LABS: Basophils % 0.5 %; Eosinophils % 0.7 %; Hemoglobin 13.9 g/dL (11.7-16.6); Lymphocytes # 2.3 10^3/uL (0.8-4.8); Lymphocytes % 52.6 %; Mean Corpuscular HGB Conc 31.6 g/dL (30.0-36.0); Mean Corpuscular Volume 91.9 fL (80-94); Mean Platelet Volume 11.1 fL (7.4-10.4); Monocytes # 0.2 10^3/uL (0.2-0.9); Monocytes % 4.3 %; Nucleated Red Blood Cells % 0 %; Platelet Count 102 10^3/cmm (130-400); Positive C 1; Red Blood Count 4.79 10^6/uL (4.1-5.3); Red Cell Distribution Width 14.4 % (12.1-15.1); White Blood Count 4.4 10^3/uL (4.0-10.0)
[2021-02-08 11:28] LABS: Alanine Aminotransferase 126 U/L (0-41); Alkaline Phosphatase 52 IU/L (40-130); Anion Gap 18.5 (5-19); Aspartate Amino Transferase 60 U/L (0-40); Blood Urea Nitrogen 21 mg/dL (6-20); Calcium 8.5 mg/dL (8.5-10.5); Carbon Dioxide 23 mmol/L (22-29); Chloride 101 mmol/L (98-107); Globulin 2.6 g/dL (1.3-4.6); Glomerular Filtration Rate 99.6 mL/min (90-130); Glucose 167 mg/dL (65-115); Osmolality Calculated 293 mOsm/kg (285-295); Potassium 4.5 mmol/L (3.5-5.1); Sodium 138 mmol/L (136-145); Total Bilirubin 0.5 mg/dL (0.15-1.2); Total Protein 6.6 g/dL (6.6-8.7)
[2021-02-13 09:13] LABS: CMV DNA By PCR <200 IU/mL; CMV DNA, QN PCR <2.30 Log IU/mL; SOURCE WHOLE BLOOD
== END 2021-02-12 23:59 | disposition home or self-care (01) ==
LOC: LAB 10:35
PROVIDERS: PCP Family Medicine; Visit Provider Internal Medicine Pulmonary Disease
DX: Z48.24 Encounter for aftercare following lung transplant (principal)
CPT/HCPCS: 36415; 80053; 80197; 85025; 87496

== ENCOUNTER 2021-02-21 11:12 | Outpatient (RCR) | payer BC, SELFPAY ==
[2021-02-21 11:42] LABS: Basophils % 0.5 %; Eosinophils % 0.5 %; Hematocrit 42.8 % (42.0-52.0); Hemoglobin 13.8 g/dL (11.7-16.6); Lymphocytes # 1.5 10^3/uL (0.8-4.8); Lymphocytes % 36.8 %; Mean Corpuscular HGB Conc 32.2 g/dL (30.0-36.0); Mean Corpuscular Hemoglobin 29.4 pg (28.0-34.0); Mean Corpuscular Volume 91.1 fL (80-94); Mean Platelet Volume 11.4 fL (7.4-10.4); Monocytes # 0.2 10^3/uL (0.2-0.9); Monocytes % 5.5 %; Neutrophils # 2.23 10^3/uL (1.8-7.7); Neutrophils % 55.9 %; Nucleated Red Blood Cells % 0 %; Platelet Count 100 10^3/cmm (130-400); Red Cell Distribution Width 14.9 % (12.1-15.1)
[2021-02-21 12:02] LABS: Alanine Aminotransferase 26 U/L (0-41); Alkaline Phosphatase 36 IU/L (40-130); Anion Gap 17.7 (5-19); Aspartate Amino Transferase 17 U/L (0-40); Blood Urea Nitrogen 16 mg/dL (6-20); Calcium 8.9 mg/dL (8.5-10.5); Carbon Dioxide 25 mmol/L (22-29); Chloride 106 mmol/L (98-107); Globulin 2.6 g/dL (1.3-4.6); Glomerular Filtration Rate 116.2 mL/min (90-130); Glucose 146 mg/dL (65-115); Osmolality Calculated 304 mOsm/kg (285-295); Potassium 3.7 mmol/L (3.5-5.1); Sodium 145 mmol/L (136-145); Total Bilirubin 0.2 mg/dL (0.15-1.2); Total Protein 6.6 g/dL (6.6-8.7)
[2021-02-26 10:08] LABS: CMV DNA By PCR <200 IU/mL; CMV DNA, QN PCR <2.30 Log IU/mL; SOURCE WHOLE BLOOD
== END 2021-03-15 23:59 | disposition home or self-care (01) ==
LOC: LAB 11:12
PROVIDERS: PCP Family Medicine; Visit Provider Internal Medicine Pulmonary Disease
DX: Z48.24 Encounter for aftercare following lung transplant (principal); Z79.899 Other long term (current) drug therapy
CPT/HCPCS: 80053; 80197; 85025; 87496

== ENCOUNTER 2021-05-25 10:50 | Inpatient (IN) | payer BC, SELFPAY ==
[2021-05-25] VITALS (7 sets, daily range): BP systolic 106–155; BP diastolic 60–92; PULSE 78–105; RESP 17–28; TEMP 37.1–38.8; O2SAT 93–98; BMI 33.9; BMI 29.6
--- NOTE | 2021-05-25 11:09 | W.ED.COVID ---
HPI - COVID General: Chief Complaint: COVID symptoms Stated Complaint: COVID SX:DOUBLE LUNG TRANSPLANT Time Seen by Provider: 05/25/21 10:59 Triage information: Has fever, cough or shortness of breath. No known COVID + exposure last 14 days History of Present Illness: HPI Narrative: 55-year-old male presents emergency room with complaint of shortness of breath. 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 He has been having fever sweats chills myalgias mild shortness of breath diarrhea nausea and vomiting. Patient has a known exposure to Covid through his daughter who has already tested positive. His symptoms began 2 days ago. MD complaint: reported COVID exposure Prior covid testing: no COVID 19 common symptoms: positive fever(s), chills, cough, non-productive cough, dyspnea, fatigue, body aches, loss of sense of smell and/or taste and throat pain; negative nausea, vomiting or diarrhea COVID 19 other sytmptoms: negative chest pain or requiring oxygen Onset (ago): hour(s) Severity: mild Pertinent comorbid conditions: diabetes, hypertension and organ transplant Treatment prior to arrival: none COVID Results: SARS-CoV-2 Antigen (Rapid) Positive (Negative) H 05/25/21 11:44 05/25/21 Nasal/Oral Coronavirus 2019 PCR Pending 05/25/21 11:47 05/25/21 Review of Systems Const: Reports: fever(s), chills, body aches and fatigue ENMT: Reports: throat pain Card: Denies: chest pain, edema, dyspnea on exertion or orthopnea Resp: Reports: dyspnea and non-productive cough GI: Denies: abdominal pain, nausea, vomiting, hematemesis, coffee ground emesis, diarrhea, constipation, bloating, hematochezia or melena : Denies: flank pain, dysuria, urinary frequency or urinary urgency Skin/Breast: Denies: rash or pruritus PFSH ED PFSH: Medical History (Updated 05/27/21 @ 13:50 by Ian Oviedo MD) DM type 2 (diabetes mellitus, type 2) History of testicular cancer Lung transplant recipient Myocardial infarction FAB (obstructive sleep apnea) Pulmonary fibrosis RLS (restless legs syndrome) Thrombocytopenia Surgical History History of testicular surgery Hx of lung transplant Family History Other No significant family history Social History Smoking and tobacco status: former smoker Alcohol intake: never Substance/Drug Use: never Lives independently: Yes Household members: spouse Marital status: Current occupational status: employed Physical Exam Const: COMMON NORMALS: no acute distress GENERAL APPEARANCE: cooperative and comfortable ORIENTATION/CONSCIOUSNESS: Yes awake, Yes oriented to person, Yes oriented to place and Yes oriented to time HENMT: COMMON NORMALS: normocephalic, atraumatic and hearing grossly normal bilaterally HEAD & SCALP: normocephalic and atraumatic Neck/C-Spine: COMMON NORMALS: no JVD Resp: AUSCULTATION: wheezes and diminished lung sounds Cardio: COMMON NORMALS: no JVD, regular rate, regular rhythm and No murmurs present (Cardio) RATE: regular rate RHYTHM: regular rhythm GI: COMMON NORMALS: Soft to palpation and No hepatosplenomegaly present AUSCULTATION: Yes normoactive bowel sounds PALPATION: Yes Soft to palpation, No Tenderness to palpation present (GI), No Guarding due to palpation present (GI) and Yes No hepatosplenomegaly present Extremity: COMMON NORMALS: normal to inspection, capillary refill normal, no clubbing, cyanosis or edema, no calf tenderness and no pedal edema Neuro: SENSORIUM/ORIENTATION: Yes oriented to person, Yes oriented to place and Yes oriented to time Skin: COMMON NORMALS: no rashes or lesions noted GENERAL SKIN EXAM: no rashes or lesions noted Course Vital Signs: Vital signs: Vital Signs Temperature 98.5 F 05/27/21 11:50 Pulse Rate 61 05/27/21 11:50 Respiratory Rate 18 05/27/21 11:50 Blood Pressure 130/85 05/27/21 11:50 Pulse Oximetry 95 05/27/21 11:50 MDM - COVID MDM Narrative: Medical decision making narrative: Patient had history of pulmonary fibrosis and had a double length lung transplant. I called and talked to Dr. Laz Sandhu phone # . He agrees the patient should be admitted to the hospital because of his risk factors alone. Currently he does not otherwise meet criteria for admission but because of his immunosuppression and having been tested positive for Covid and being symptomatic he should be admitted and monitored for worsening of his symptoms. Dr. Sandhu also recommends because of the unique situation that the patient should be treated with monoclonal antibodies if they are available (which they are). He also recommends initiating remdesivir and dexamethasone which we have already done. Discussed risks and benefits with the patient he wishes to proceed. Normally we would transfer this patient to [place] because of his immunosuppression and recent lung transplant, however they do not have any available beds and will not have beds for potentially 4 to [address] Sandhu he recommends admission here and then transfer if the patient still requires inpatient care once a bed becomes available. He will be available to consult on this patient at the above phone number. Lab Data: Labs: Lab Results 05/25/21 05/25/21 05/25/21 11:28 11:28 11:28 WBC 6.4 10^3/uL 10^3/ uL (4.0-10.0) RBC 4.84 10^6/uL 10^6 /uL (4.1-5.3) Hgb 15.1 g/dL g/dL (11.7-16.6) Hct 43.7 % % (42.0-52.0) MCV 90.3 fl fl (80-94) MCH 31.2 pg pg (28.0-34.0) MCHC 34.6 g/dL g/dL (30.0-36.0) RDW 12.2 % % (12.1-15.1) Plt Count 91 10^3/cmm L 10^ 3/cmm (130-400) MPV 12.6 fL H fL (7.4-10.4) Neut % (Auto) 63.8 % % Lymph % (Auto) 26.8 % % [place] % (Auto) 7.2 % % Eos % (Auto) 0.0 % % Baso % (Auto) 0.2 % % Neut # (Auto) 4.07 10^3/uL 10^3 /uL (1.8-7.7) Lymph # (Auto) 1.7 10^3/uL 10^3/ uL (0.8-4.8) [place] # (Auto) 0.5 10^3/uL 10^3/ uL (0.2-0.9) Eos # (Auto) 0.0 10^3/uL 10^3/ uL (0.0-0.8) Baso # (Auto) 0.0 10^3/uL 10^3/ uL (0.0-0.1) Nucleated RBC % (a uto) 0 % % Nucleated RBCs # 0.0 /100WBC /100W BC D-Dimer 3.08 ug/mIFEU H u g/mIFEU (0-0.59) Specimen Type Sample Site ABG pH ABG pCO2 ABG pO2 ABG HCO3 ABG Base Excess Kash Test Hematocrit O2 Delivery Device FiO2 Electrical Software Engineer ID Sodium 129 mmol/L L mmol /L (136-145) Potassium 4.2 mmol/L mmol/L (3.5-5.1) Chloride 91 mmol/L L mmol/ L (98-107) Carbon Dioxide 17 mmol/L L mmol/ L (22-29) Anion Gap 25.2 H (5-19) BUN 30 mg/dL H mg/dL (6-20) Creatinine 1.1 mg/dL mg/dL (0.7-1.2) GFR Calculation 69.0 mL/min L mL/ min (90-130) Glucose 235 mg/dL H mg/dL (65-115) Serum Osmolality Calculated Osmolal ity 282 mOsm/kg L mOs m/kg (285-295) Lactic Acid Lactic Acid (Sepsi s) Calcium 9.2 mg/dL mg/dL (8.5-10.5) Total Bilirubin 0.8 mg/dL mg/dL (0.15-1.2) AST 37 U/L U/L (0-40) ALT 27 U/L U/L (0-41) Alkaline Phosphata se 36 IU/L L IU/L (40-130) C-Reactive Protein 113.3 mg/L H mg/L (0.0-4.9) Total Protein 6.7 g/dL g/dL (6.6-8.7) Albumin 4.0 g/dL g/dL (3.5-5.2) Globulin 2.7 g/dL g/dL (1.3-4.6) SARS-CoV-2 Ag (Rap id) 05/25/21 05/25/21 05/25/21 11:28 11:28 11:33 WBC RBC Hgb Hct MCV MCH MCHC RDW Plt Count MPV Neut % (Auto) Lymph % (Auto) [place] % (Auto) Eos % (Auto) Baso % (Auto) Neut # (Auto) Lymph # (Auto) [place] # (Auto) Eos # (Auto) Baso # (Auto) Nucleated RBC % (a uto) Nucleated RBCs # D-Dimer Specimen Type Arterial Sample Site Radial, right ABG pH 7.65 H* (7.35-7.45) ABG pCO2 12.8 mmHg L* mmHg (35-45) ABG pO2 76.8 mmHg L mmHg (80.0-100.0) ABG HCO3 14.0 mmol/L L mmo l/L (22-26) ABG Base Excess -2.9 mmol/L L mmo l/L (-2.0-2.0) Kash Test Pos Hematocrit 46.0 % % (42-52) O2 Delivery Device Room air FiO2 21.0 % % Electrical Software Engineer ID [place] Sodium Potassium Chloride Carbon Dioxide Anion Gap BUN Creatinine GFR Calculation Glucose Serum Osmolality 293 mOsm/kg mOsm/ kg (278-305) Calculated Osmolal ity Lactic Acid 4.0 mmol/L H mmol /L (0.5-2.2) Lactic Acid (Sepsi s) Calcium Total Bilirubin AST ALT Alkaline Phosphata se C-Reactive Protein Total Protein Albumin Globulin SARS-CoV-2 Ag (Rap id) 05/25/21 05/25/21 11:44 15:30 WBC RBC Hgb Hct MCV MCH MCHC RDW Plt Count MPV Neut % (Auto) Lymph % (Auto) [place] % (Auto) Eos % (Auto) Baso % (Auto) Neut # (Auto) Lymph # (Auto) [place] # (Auto) Eos # (Auto) Baso # (Auto) Nucleated RBC % (a uto) Nucleated RBCs # D-Dimer Specimen Type Sample Site ABG pH ABG pCO2 ABG pO2 ABG HCO3 ABG Base Excess Kash Test Hematocrit O2 Delivery Device FiO2 Electrical Software Engineer ID Sodium Potassium Chloride Carbon Dioxide Anion Gap BUN Creatinine GFR Calculation Glucose Serum Osmolality Calculated Osmolal ity Lactic Acid Lactic Acid (Sepsi s) 2.0 mmol/L mmol/L (0.5-2.2) Calcium Total Bilirubin AST ALT Alkaline Phosphata se C-Reactive Protein Total Protein Albumin Globulin SARS-CoV-2 Ag (Rap id) Positive H (Negative) COVID Results: SARS-CoV-2 Antigen (Rapid) Positive (Negative) H 05/25/21 11:44 05/25/21 Nasal/Oral Coronavirus 2019 PCR Pending 05/25/21 11:47 05/25/21 Monoclonal Antibody - ED Inclusion/Exclusion Criteria age >/= 12 years, weight >/= 40kg /88lbs, symptom onset less than 10 days ago and + direct Sars-Cov-2 test less than 7-10 days ago obesity (BMI >25 or 85%til for age), cardiovascular disease or htn, diabetes, chronic lung disease and receiving immunosuppressive treatment not requiring oxygen (if not chronically on oxygen) and no increase oxygen requirement (if chronically on oxygen) Patient education patient/family/caregiver received/reviewed fact sheet, Emergency Use Authorization/unapproved drug status discussed with patient/family/caregiver, alternatives to this treatment discussed with patient/family/caregiver, risks and benefits of medication reviewed with patient/family/caregiver, patient/family/caregiver given opportunity for questions, which were answered and patient consents to receiving Monoclonal Antibody Treatment Plan for treatment Meets criteria for Monoclonal Antibody infusion Date of symptom(s) onset: 05/23/21 Where are the positive COVID test results, if positive?: Resulted in [facility] Ordering Monoclonal Antibody infusion for today Other information Discussed risks and benefits with the patient. He has been admitted to be monitored because of his extremely high risk in his recent lung transplant. Discussed with his transplant physician they recommend giving monoclonal antibodies even though the patient is being admitted. They also recommend remdesivir and dexamethasone. Because of his unusual case and risks he should get the monoclonal antibodies. Discharge Plan Discharge Patient Disposition: Admitted As Inpatient Admit Provider: Ian Oviedo Clinical Impression: Pulmonary fibrosis, COVID-19, DM type 2 (diabetes mellitus, type 2), Lung transplant recipient Condition: Stable Discharge Diet: Usual diet and Diabetic Discharge Activity: Increase activity as tolerated Coding Level of Care Code ED Legal Compliance Officer for Jazz Fwd Exam Comprehensive
--- NOTE | 2021-05-25 11:19 | XR_ITS ---
WS: [id number] Portable AP upright chest, 05/25/2021 Clinical Data: dyspnea Comparison: Portable chest, 03/02/2020. Findings: No nodules, masses or effusions are seen. The heart is normal. The pulmonary vascularity i s not increased. No pneumonia or pneumothorax is seen. There are sutures in the central portion of th e chest which may be in the sternum. Monitor leads are on the chest wall. XR/XR chest 1V portable [id number] Impression: Negative chest.
[2021-05-25 11:43] LABS: Basophils % 0.2 %; Hematocrit 43.7 % (42.0-52.0); Hemoglobin 15.1 g/dL (11.7-16.6); Lymphocytes # 1.7 10^3/uL (0.8-4.8); Lymphocytes % 26.8 %; Mean Corpuscular HGB Conc 34.6 g/dL (30.0-36.0); Mean Corpuscular Hemoglobin 31.2 pg (28.0-34.0); Mean Corpuscular Volume 90.3 fl (80-94); Mean Platelet Volume 12.6 fL (7.4-10.4); Monocytes # 0.5 10^3/uL (0.2-0.9); Monocytes % 7.2 %; Neutrophils # 4.07 10^3/uL (1.8-7.7); Neutrophils % 63.8 %; Nucleated Red Blood Cells % 0 %; Platelet Count 91 10^3/cmm (130-400); Red Blood Count 4.84 10^6/uL (4.1-5.3); Red Cell Distribution Width 12.2 % (12.1-15.1); White Blood Count 6.4 10^3/uL (4.0-10.0)
[2021-05-25 11:46] LABS: Base Excess ABG -2.9 mmol/L (-2.0-2.0); Blood Gas Allen Test Pos; Blood Gas Operator Identificat MONRO; Blood Gas Sample Site Radial, right; Blood Gas Sample Type Arterial; Oxygen Device ROOM AIR; PO2 ABG 76.8 mmHg (80.0-100.0)
[2021-05-25 11:47] LABS: ABG PCO2 12.8 mmHg (35-45); ABG PH Result 7.65 (7.35-7.45)
[2021-05-25] MEDS: dexamethasone 4 mg/mL INJ 6 MG IVP (11:54)
[2021-05-25 12:04] LABS: Alanine Aminotransferase 27 U/L (0-41); Alkaline Phosphatase 36 IU/L (40-130); Anion Gap 25.2 (5-19); Aspartate Amino Transferase 37 U/L (0-40); Blood Urea Nitrogen 30 mg/dL (6-20); C Reactive Protein 113.3 mg/L (0.0-4.9); Calcium 9.2 mg/dL (8.5-10.5); Carbon Dioxide 17 mmol/L (22-29); Chloride 91 mmol/L (98-107); Globulin 2.7 g/dL (1.3-4.6); Glucose 235 mg/dL (65-115); Osmolality Calculated 282 mOsm/kg (285-295); Potassium 4.2 mmol/L (3.5-5.1); Sodium 129 mmol/L (136-145); Total Bilirubin 0.8 mg/dL (0.15-1.2); Total Protein 6.7 g/dL (6.6-8.7)
[2021-05-25 12:46] LABS: D Dimer 3.08 ug/mIFEU (0-0.59)
[2021-05-25 12:50] LABS: SARS Covid-2 Antigen Positive (Negative)
--- NOTE | 2021-05-25 13:05 | CT_ITS ---
WS: [id number] CT CHEST ANGIOGRAPHY WITH REFORMATS HISTORY: elevated D dimer TECHNIQUE: Contiguous axial images are obtained through the chest during arterial injection of intrav enous contrast. Images are reconstructed to evaluate the pulmonary arteries. MIP imaging also reviewe d. All CT scans at [facility] use at least one of these dose optimization techniques: automat ed exposure control; mA and/or kV adjustment per patient size (includes targeted exams where dose is matched to clinical indication); or iterative reconstruction. CONTRAST: Omnipaque 350; 95 mL IV. DLP: 582.56 mGy.cm COMPARISON: None available. Very good opacification of the pulmonary arteries. No filling defects or pulmonary embolism. Very mil d atherosclerosis aorta. Normal size heart with no RIGHT heart strain. No pericardial effusion. Small layering LEFT pleural effusion. Multilobar areas of mild groundglass opacification. There is a more focal consolidation consistent wi th focal fat along the posterior mid LEFT chest wall. Hounsfield units are negative. No pneumothorax. No adenopathy. There is a small benign-appearing anterior mediastinal lymph node. No adrenal mass. Mild perinephric stranding around the superior poles of each kidney. Prior cerclage wire placement in the mid sternum. May be from prior trauma. CT/CT angio chest PE protcl [id number] IMPRESSION: 1. No pulmonary embolism. 2. Diffuse multilobar groundglass attenuation from pneumonitis. 3. Very small layering LEFT pleural effusion with an associated area of pleura l thickening which may be fibrosis or fat.
[2021-05-25] MEDS: LORazepam 2 mg/mL INJ 1 mL IVP (13:46)
[2021-05-25] MEDS: remdesivir 200 MG in sodium chloride 0.9% (100 ml) 60 ML 100 MG IV (13:47)
[2021-05-25 14:35] LABS: Reflex Lactate Order REFLEX LACTIC ORDERD
[2021-05-25] MEDS: iohexol 350 mg/mL 100 mL Btl IV (15:15)
[2021-05-25] MEDS: acetaminophen 500 mg Tablet 1000 MG PO (15:36)
[2021-05-25] MEDS: sodium chloride 0.9% 1,000 ML 999 ML IV (15:39)
--- NOTE | 2021-05-25 16:07 | P.HP_ITS ---
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 Headache, nausea and vomiting. Loose stools. Febrile in ER, 101.8 fever. With respiratory alkalosis. PO2 76.8. Moderate D-dimer abnormality elevated 3.08. No PE noted on CT angiogram chest. Diffuse multilobar groundglass attenuation from pneumonitis. Very small layering left pleural effusion with associated area of pleural thickening may be fibrosis or fat. Mild hyponatremia 129. BUN 30, creatinine 1.1. Bicarb 17, anion gap 25.2. Lactic acid 4. CRP 113. Tested positive on rapid COVID-19 antigen. With known exposure. Previously been vaccinated with Juan Francisco & Juan Francisco vaccine. In ER transfer arrangements made to [facility], but no beds are available at the moment. Pending transfer he is admitted here. As per recommendation of accepting physician at [place] at the transplant team monoclonal antibodies are requested for him in addition to also starting remdesivir, Decadron. He is currently feeling about the same. Reports has been dyspneic, although in ER saturations are 96% on room air. Has not required oxygen so far. Reports intermittent cough without much sputum. No chest pain or pressure. Reports quite a bit of heartburn. Reports has not been missing any medications apart from having not taken them this morning. With regards to CODE STATUS, he would want attempted cardiopulmonary resuscitation in case of arrest. Would not want persistent supportive measures in case there is low chance of recovery. Review of Systems Const: Reports: fever(s), chills, body aches and malaise Eyes: Denies: change in vision or eye redness ENMT: Denies: throat pain, oral sores or ear or mastoid pain Card: Denies: chest pain, edema, pre-syncope or dyspnea on exertion Resp: Reports: dyspnea and non-productive cough; Denies: productive cough, change in phlegm color or hemoptysis GI: Reports: nausea; Denies: abdominal pain, vomiting, diarrhea, constipation, hematochezia or melena : Denies: flank pain, difficulty urinating, urinary frequency or hematuria Musc: Denies: back pain, joint swelling or joint redness Skin/Breast: Denies: rash, sores or new lesions Neuro: Denies: headache(s), numbness in extremities, weakness in extremities, dizziness, confusion or seizure-like activity Endo: Denies: polyuria or polydipsia Maldonado/Lymph: Denies: easy bleeding or purpura All/Imm: Denies: urticaria, throat swelling or tongue swelling Medications/Allergies Home Medications Medication Instructions Recorded Confirmed Last Taken Type aspirin [Aspirin Low Dose] 81 mg PO DAILY 03/02/20 05/25/21 03/02/20 History fluconazole 100 mg PO DAILY 03/02/20 05/25/21 03/02/20 History insulin glargine [Lantus Solostar 40 unit SUBCUT QAM 03/02/20 05/25/21 03/02/20 History U-100 Insulin] insulin lispro See Rx Instructions .ROUTE .COMPLEX 03/02/20 05/25/21 03/02/20 History mycophenolate mofetil 1,000 mg PO BID 03/02/20 05/25/21 03/02/20 History ondansetron HCl 4 mg PO Q6H PRN 03/02/20 05/25/21 03/02/20 History prednisone 10 mg PO DAILY 03/02/20 05/25/21 03/02/20 History rosuvastatin 10 mg PO DAILY 03/02/20 05/25/21 03/02/20 History tacrolimus See Rx Instructions .ROUTE .COMPLEX 03/02/20 05/25/21 03/02/20 History valganciclovir 900 mg PO DAILY 03/02/20 05/25/21 03/02/20 History calcium carbonate-vitamin D3 1 tab PO BID 05/25/21 05/25/21 Unknown History [Oysco 500/D] carvedilol 12.5 mg PO BID 05/25/21 05/25/21 Unknown History cholecalciferol (vitamin D3) 25 mcg PO DAILY 05/25/21 05/25/21 Unknown History [Vitamin D3] citalopram 20 mg PO DAILY 05/25/21 05/25/21 Unknown History docusate sodium [Stool Softener] 100 mg PO DAILY 05/25/21 05/25/21 Unknown History guaifenesin [Mucinex] 600 mg PO Q12H PRN 05/25/21 05/25/21 05/24/21 History melatonin 1 cap PO BEDTIME 05/25/21 05/25/21 Unknown History pantoprazole 40 mg PO DAILY 05/25/21 05/25/21 Unknown History pramipexole 0.25 mg PO DAILY 05/25/21 05/25/21 Unknown History sulfamethoxazole-trimethoprim 1 tab PO .ON MON,WED,FRI 05/25/21 05/25/21 Unknown History valerian root 1 tab PO BEDTIME 05/25/21 05/25/21 Unknown History zinc 50 mg PO DAILY 05/25/21 05/25/21 05/24/21 History Allergies Allergy/AdvReac Type Severity Reaction Status Date / Time diphenhydramine Allergy ADR-Anxiety Verified 03/02/20 19:04 [From Benadryl] hydrocodone Allergy ADR-Itching Verified 03/02/20 19:04 PFSH Acute PFSH: Medical History (Updated 05/25/21 @ 16:55 by Ian Oviedo MD) DM type 2 (diabetes mellitus, type 2) History of testicular cancer Lung transplant recipient Myocardial infarction FAB (obstructive sleep apnea) Pulmonary fibrosis RLS (restless legs syndrome) Surgical History History of testicular surgery Hx of lung transplant Family History Other No significant family history Social History Smoking and tobacco status: former smoker Alcohol intake: never Substance/Drug Use: never Lives independently: Yes Household members: spouse Marital status: Current occupational status: employed Vitals/I&O/Wt Last Vital Signs Temp 101.8 F H 05/25/21 10:51 Pulse 90 05/25/21 14:21 Resp 28 H 05/25/21 10:51 BP 155/82 05/25/21 14:21 Pulse Ox 94 05/25/21 14:21 Weight last 48 hrs Weight 113.398 kg Physical Exam Const: COMMON NORMALS: no acute distress and patient oriented x3 HENMT: COMMON NORMALS: oropharynx normal Neck/C-Spine: COMMON NORMALS: no JVD Resp: COMMON NORMALS: normal respiratory effort and clear to auscultation bilaterally AUSCULTATION: clear to auscultation bilaterally Cardio: COMMON NORMALS: no JVD, regular rhythm, S1 normal heart sound present, S2 normal heart sound present and No murmurs present (Cardio) RHYTHM: regular rhythm HEART SOUNDS: S1 normal heart sound present and S2 normal heart sound present GI: COMMON NORMALS: Normal to inspection, nondistended, normoactive bowel sounds present, Soft to palpation and non-tender PALPATION: Yes Soft to palpation Extremity: COMMON NORMALS: no joint enlargement and no pedal edema Neuro: COMMON NORMALS: patient oriented x3 and moves all extremities Skin: COMMON NORMALS: no rashes or lesions noted GENERAL SKIN EXAM: no rashes or lesions noted Data : 05/25/21 11:28 05/25/21 11:28 A&P Assessment and plan (1) COVID-19: COVID-19 infection in a gentleman with double lung transplant. Immunosuppression with mycophenolate, [place]'s, prednisone. With sepsis on presentation, heart rate 105, fever 101.8. Pending bed availability for transfer to [facility] transplant team. As per recommendations of the accepting physician receiving monoclonal antibodies. Started on remdesivir, Decadron. So far not requiring oxygen. Minimal hypoxemia. Noted respiratory alkalosis. Continue prophylactic medications including Bactrim, fluconazole, valganciclovir. Collect blood culture. Received limited fluid resuscitation. Reassess lactic acid. Empirically start Zosyn as well due to sepsis, lactic acidosis. Collect sputum cultures, although if possible given cough mostly is dry. Urine bacterial antigens. Supportive care. Maintain isolation. Follow-up D-dimer, CRP. Status: Acute (2) Lung transplant recipient: In November. Continue tacrolimus, mycophenolate, Bactrim, fluconazole, valganciclovir. Status: Acute (3) Lactic acidosis: Mixed acid-base disorder with contraction and respiratory alkalosis, anion gap metabolic acidosis with lactic acidosis. Status: Acute (4) Nausea and vomiting: Poor oral intake last several days. Nausea, vomiting. Status: Acute (5) Elevated d-dimer: Secondary to COVID-19 infection. No PE noted on CT angiogram chest. Will assess lower extremity venous duplex. DVT prophylaxis with Lovenox. Status: Acute Additional A&P Information Mild hyponatremia: Suspect hypervolemic with nausea, vomiting, poor oral intake. Check serum osmole. Will give slow rehydration with isotonic solution for now. Monitor sodium. Oxygenation. Noted chronic thrombocytopenia. CAD: Continue aspirin, carvedilol, statin. DM2: Continue insulin, SSI RLS: Continue pramipexole History of FAB: Reports has not used CPAP in the last several months. Attestations Medical Necessity Statement*: Admission of over 2 midnights is anticipated for assessment of management of COVID-19 infection, sepsis in a gentleman with immunosuppression following double lung transplant. Coding Level of Care Code Acute Dredge Deckhand for g Fwd Diagnoses COVID-19 U07.1 Lung transplant recipient Z94.2 Lactic acidosis E87.2 Nausea and vomiting R11.2 Elevated d-dimer R79.89
[2021-05-25 17:13] LABS: Lactate (Lactic Acid level) 1.6 mmol/L (0.5-2.2)
[2021-05-25] MEDS: piperacillin-tazobactam 3.375 GM in sodium chloride 0.9% (plus) 50 ML IV (19:57)
[2021-05-25] MEDS: lactated ringers 1,000 ML 75 ML IV (19:58)
[2021-05-25] MEDS: calcium carb-vit d 500mg-200unit 1 Tablet 1 EACH PO (19:58)
[2021-05-25] MEDS: enoxaparin 40 mg/0.4 mL Syringe SUBCUT (19:58)
[2021-05-25] MEDS: carvedilol 12.5 mg Tablet PO (20:01)
[2021-05-25] MEDS: tacrolimus 0.5 mg Capsule PO (20:01)
[2021-05-25] MEDS: benzonatate 100 mg Capsule PO (20:02)
[2021-05-25 21:58] LABS: Glucose Point of Care 339 mg/dL (70-110)
[2021-05-25] MEDS: insulin lispro 100 unit/1 mL SUBCUT (22:43)
[2021-05-26] VITALS (9 sets, daily range): BP systolic 110–128; BP diastolic 69–83; PULSE 62–84; RESP 17–19; TEMP 36.4–39.5; O2SAT 92–97
[2021-05-26] MEDS: piperacillin-tazobactam 3.375 GM in sodium chloride 0.9% (plus) 50 ML IV ×3 (04:35→20:00)
[2021-05-26] MEDS: insulin glargine 100 units/1 mL 40 UNIT SUBCUT (05:20)
[2021-05-26 05:34] LABS: Basophils % 0.2 %; Hematocrit 43.1 % (42.0-52.0); Hemoglobin 14.1 g/dL (11.7-16.6); Mean Corpuscular HGB Conc 32.7 g/dL (30.0-36.0); Mean Corpuscular Hemoglobin 30.7 pg (28.0-34.0); Mean Corpuscular Volume 93.9 fl (80-94); Mean Platelet Volume 12.9 fL (7.4-10.4); Monocytes # 0.4 10^3/uL (0.2-0.9); Neutrophils # 4.01 10^3/uL (1.8-7.7); Nucleated Red Blood Cells % 0 %; Platelet Count 88 10^3/cmm (130-400); Red Blood Count 4.59 10^6/uL (4.1-5.3); Red Cell Distribution Width 12.5 % (12.1-15.1); White Blood Count 5.7 10^3/uL (4.0-10.0)
[2021-05-26 05:49] LABS: D Dimer 1.94 ug/mIFEU (0-0.59)
[2021-05-26 05:59] LABS: Alanine Aminotransferase 24 U/L (0-41); Albumin Level 3.2 g/dL (3.5-5.2); Alkaline Phosphatase 32 IU/L (40-130); Aspartate Amino Transferase 40 U/L (0-40); Blood Urea Nitrogen 29 mg/dL (6-20); C Reactive Protein 167.5 mg/L (0.0-4.9); Calcium 8.8 mg/dL (8.5-10.5); Carbon Dioxide 20 mmol/L (22-29); Chloride 99 mmol/L (98-107); Globulin 3.7 g/dL (1.3-4.6); Glomerular Filtration Rate 99.6 mL/min (90-130); Glucose 198 mg/dL (65-115); Osmolality Calculated 289 mOsm/kg (285-295); Sodium 134 mmol/L (136-145); Total Bilirubin 0.5 mg/dL (0.15-1.2); Total Protein 6.9 g/dL (6.6-8.7)
[2021-05-26 06:04] LABS: Anion Gap 19.2 (5-19); Potassium 4.2 mmol/L (3.5-5.1)
[2021-05-26 06:39] LABS: Slide Review Slide Review Perform
[2021-05-26] MEDS: aspirin 81 mg EC Tablet PO (09:04)
[2021-05-26] MEDS: pramipexole 0.25 mg Tablet PO (09:04)
[2021-05-26] MEDS: insulin lispro 100 unit/1 mL SUBCUT ×4 (09:04→22:04)
[2021-05-26] MEDS: calcium carb-vit d 500mg-200unit 1 Tablet 1 EACH PO ×2 (09:04→18:13)
[2021-05-26] MEDS: fluconazole 100 mg Tablet PO (09:04)
[2021-05-26] MEDS: benzonatate 100 mg Capsule PO ×3 (09:05→20:02)
[2021-05-26] MEDS: citalopram 20 mg Tablet PO (09:05)
[2021-05-26] MEDS: guaiFENesin-dextromethorphan UDC 10 mL PO (09:05)
[2021-05-26] MEDS: guaiFENesin 600 mg Tablet PO (09:05)
[2021-05-26] MEDS: tacrolimus 0.5 mg Capsule 1 MG PO (09:05)
[2021-05-26] MEDS: atorvastatin 40 mg Tablet PO (09:05)
[2021-05-26] MEDS: pantoprazole DR 40 mg Tablet PO (09:05)
[2021-05-26] MEDS: carvedilol 12.5 mg Tablet PO ×2 (09:05→18:13)
[2021-05-26] MEDS: lactated ringers 1,000 ML 75 ML IV ×2 (09:06→22:05)
[2021-05-26] MEDS: acetaminophen 325 mg Tablet 650 MG PO ×2 (10:37→18:37)
[2021-05-26] MEDS: dexamethasone 10 mg/mL INJ 6 MG IVP (11:56)
[2021-05-26 12:09] LABS: Glucose Point of Care 179 mg/dL (70-110)
[2021-05-26 14:27] LABS: Osmolality Serum 293 mOsm/kg (278-305)
[2021-05-26 16:27] LABS: Glucose Point of Care 236 mg/dL (70-110)
[2021-05-26] MEDS: tacrolimus 0.5 mg Capsule PO (18:37)
[2021-05-26] MEDS: enoxaparin 40 mg/0.4 mL Syringe SUBCUT (18:37)
--- NOTE | 2021-05-26 19:04 | USCV_ITS ---
Alon Brandon Age: 55 Gender: M : 1965 Exam Date: 05/26/2021 06:16 Ordering Phys: Ian Oviedo MD Technologist: Suzie Rondon Exam Location: [facility] Indication: COVID + HISTORY: Covid positive with bilateral lung transplant PROCEDURES: The venous duplex Doppler examination of both lower extremities was performed in the standard fashion. The following venous structures were evaluated: common femoral vein, profunda vein, proximal portion of the greater saphenous vein, superficial femoral vein, and the popliteal vein. In addition, the posterior tibial and peroneal trunk were evaluated. Serial compression, augmentation maneuvers, and spectral Doppler flow evaluation were performed. FINDINGS: Normal 2-D Doppler and augmentation and compressibility throughout the lower extremity venous structures. Additional imaging through the proximal calf veins also reveals no thrombus. Limited evaluation of the greater saphenous vein is patent with no thrombus. CONCLUSIONS No DVT bilateral lower extremities. Dr. Betzy Al DO (Electronically Signed) Final Date: 26 May 2021 07:36 S
--- NOTE | 2021-05-26 20:02 | P.PN_ITS ---
Subjective Subjective: Interval history: Today feeling slightly better. No further nausea vomiting. Persistent diarrhea. Tolerating clears today, wanting to advance to consistent carbohydrate diet. I was notified later today also that as per discussion of patient with his family patient and family declined for him to receive remdesivir. Vitals/I&O/Wt Last Vital Signs Temp 98.5 F 05/26/21 15:41 Pulse 74 05/26/21 15:41 Resp 18 05/26/21 15:41 BP 114/73 05/26/21 15:41 Pulse Ox 97 05/26/21 15:41 05/26/21 05/26/21 05/26/21 06:59 14:59 22:59 Intake Total 500 / 1670 1000 / 1000 410 / 1410 Output Total 900 / 900 Balance 500 / 1670 100 / 100 410 / 510 Weight last 48 hrs Weight 98.883 kg Weight 99.019 kg Weight 113.398 kg Physical Exam Const: COMMON NORMALS: no acute distress and patient oriented x3 HENMT: COMMON NORMALS: oropharynx normal Neck/C-Spine: COMMON NORMALS: no JVD Resp: COMMON NORMALS: normal respiratory effort and clear to auscultation bilaterally AUSCULTATION: clear to auscultation bilaterally Cardio: COMMON NORMALS: no JVD, regular rhythm, S1 normal heart sound present, S2 normal heart sound present and No murmurs present (Cardio) RHYTHM: regular rhythm HEART SOUNDS: S1 normal heart sound present and S2 normal heart sound present GI: COMMON NORMALS: Normal to inspection, nondistended, normoactive bowel sounds present, Soft to palpation and non-tender PALPATION: Yes Soft to palpation Extremity: COMMON NORMALS: no joint enlargement and no pedal edema Neuro: COMMON NORMALS: patient oriented x3 and moves all extremities Skin: COMMON NORMALS: no rashes or lesions noted GENERAL SKIN EXAM: no rashes or lesions noted Data : 05/26/21 04:26 05/26/21 04:26 Micro: Microbiology 05/25/21 16:55 Blood Culture - Preliminary Blood NEGATIVE TO DATE 05/25/21 16:50 Blood Culture - Preliminary Blood NEGATIVE TO DATE A&P Assessment and plan (1) COVID-19: Additional fever episode this morning 103.1. Otherwise afebrile. Declined further remdesivir. Continue Decadron. Continue empiric antibiotic. Platelets noted with some decrease. Continue Lovenox for now, but this may need to be discontinued in case of further platelet decline. Will reduce dose to 30 mg for now. No bed yet at [facility]. Sepsis improving. Fever again, but tachycardia so far resolved. No leukocytosis. COVID-19 infection in a gentleman with double lung transplant. Immunosuppression with mycophenolate, [place]'s, prednisone. Pending bed availability for transfer to [facility] transplant team. As per recommendations of the accepting physician receiving monoclonal antibodies. Started on remdesivir, Decadron. So far not requiring oxygen. Minimal hypoxemia. Noted respiratory alkalosis. Continue prophylactic medications including Bactrim, fluconazole, valganciclovir. Collect sputum cultures, although if possible given cough mostly is dry. Urine bacterial antigens. Supportive care. Maintain isolation. Follow-up D-dimer, CRP. Status: Acute (2) Lung transplant recipient: In November. Continue tacrolimus, mycophenolate, Bactrim, fluconazole, valganciclovir. Status: Acute (3) Lactic acidosis: Gap and bicarb improving. Mixed acid-base disorder with contraction and respiratory alkalosis, anion gap metabolic acidosis with lactic acidosis. Status: Acute (4) Nausea and vomiting: Resolved. Requests advancement of diet. Status: Acute (5) Elevated d-dimer: Secondary to COVID-19 infection. No PE noted on CT angiogram chest. Will assess lower extremity venous duplex. DVT prophylaxis with Lovenox. Decrease dose. Watch decreasing platelets. Status: Acute Additional A&P Information Mild hyponatremia: Improving. Noted chronic thrombocytopenia. CAD: Continue aspirin, carvedilol, statin. DM2: Continue insulin, SSI RLS: Continue pramipexole History of FAB: Reports has not used CPAP in the last several months. 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 Coding Level of Care Code Acute Feeder Catcher for [facility] Fw Diagnoses COVID-19 U07.1 Lung transplant recipient Z94.2 Lactic acidosis E87.2 Nausea and vomiting R11.2 Elevated d-dimer R79.89
[2021-05-26 21:20] LABS: Glucose Point of Care 265 mg/dL (70-110)
[2021-05-27] VITALS: BP 107/64; PULSE 71; RESP 19; TEMP 37; O2SAT 94
[2021-05-27 04:00] VITALS: BP 117/79; PULSE 67; RESP 18; TEMP 36.9; O2SAT 92
[2021-05-27] MEDS: piperacillin-tazobactam 3.375 GM in sodium chloride 0.9% (plus) 50 ML IV ×2 (04:24→12:58)
[2021-05-27 05:31] VITALS: BMI 29.5
[2021-05-27] MEDS: insulin glargine 100 units/1 mL 40 UNIT SUBCUT (05:58)
[2021-05-27 06:14] LABS: Basophils % 0.2 %; Hematocrit 38.6 % (42.0-52.0); Hemoglobin 13.1 g/dL (11.7-16.6); Lymphocytes # 0.9 10^3/uL (0.8-4.8); Lymphocytes % 20.6 %; Mean Corpuscular HGB Conc 33.9 g/dL (30.0-36.0); Mean Corpuscular Hemoglobin 31.6 pg (28.0-34.0); Mean Corpuscular Volume 93.2 fl (80-94); Mean Platelet Volume 12.8 fL (7.4-10.4); Monocytes # 0.4 10^3/uL (0.2-0.9); Monocytes % 7.8 %; Neutrophils # 3.04 10^3/uL (1.8-7.7); Nucleated Red Blood Cells % 0 %; Platelet Count 70 10^3/cmm (130-400); Red Blood Count 4.14 10^6/uL (4.1-5.3); Red Cell Distribution Width 12.5 % (12.1-15.1); White Blood Count 4.5 10^3/uL (4.0-10.0)
[2021-05-27 06:27] LABS: D Dimer 1.04 ug/mIFEU (0-0.59)
[2021-05-27 06:32] LABS: Alanine Aminotransferase 22 U/L (0-41); Albumin Level 3.1 g/dL (3.5-5.2); Alkaline Phosphatase 26 IU/L (40-130); Anion Gap 14.1 (5-19); Aspartate Amino Transferase 34 U/L (0-40); Blood Urea Nitrogen 23 mg/dL (6-20); C Reactive Protein 104.8 mg/L (0.0-4.9); Calcium 8.4 mg/dL (8.5-10.5); Carbon Dioxide 22 mmol/L (22-29); Chloride 99 mmol/L (98-107); Glomerular Filtration Rate 171.4 mL/min (90-130); Glucose 208 mg/dL (65-115); Osmolality Calculated 282 mOsm/kg (285-295); Potassium 4.1 mmol/L (3.5-5.1); Sodium 131 mmol/L (136-145); Total Bilirubin 0.4 mg/dL (0.15-1.2); Total Protein 6.1 g/dL (6.6-8.7)
[2021-05-27 06:58] LABS: Glucose Point of Care 245 mg/dL (70-110)
[2021-05-27 07:55] LABS: Slide Review Slide Review Perform
[2021-05-27 08:25] VITALS: BP 120/80; PULSE 63; RESP 18; TEMP 36.7; O2SAT 94
[2021-05-27] MEDS: pantoprazole DR 40 mg Tablet PO (09:31)
[2021-05-27] MEDS: fluconazole 100 mg Tablet PO (09:31)
[2021-05-27] MEDS: aspirin 81 mg EC Tablet PO (09:31)
[2021-05-27] MEDS: citalopram 20 mg Tablet PO (09:31)
[2021-05-27] MEDS: atorvastatin 40 mg Tablet PO (09:32)
[2021-05-27] MEDS: calcium carb-vit d 500mg-200unit 1 Tablet 1 EACH PO (09:32)
[2021-05-27] MEDS: benzonatate 100 mg Capsule PO (09:32)
[2021-05-27] MEDS: sulfamethoxazole-trimeth DS 160-800 mg Tablet 1 TAB PO (09:33)
[2021-05-27] MEDS: carvedilol 12.5 mg Tablet PO (09:33)
[2021-05-27] MEDS: insulin lispro 100 unit/1 mL SUBCUT ×2 (09:34→12:57)
[2021-05-27] MEDS: pramipexole 0.25 mg Tablet PO (09:34)
[2021-05-27] MEDS: tacrolimus 0.5 mg Capsule 1 MG PO (10:25)
[2021-05-27 11:50] VITALS: BP 130/85; PULSE 61; RESP 18; TEMP 36.9; O2SAT 95
[2021-05-27 12:03] LABS: Glucose Point of Care 229 mg/dL (70-110)
[2021-05-27] MEDS: dexamethasone 10 mg/mL INJ 6 MG IVP (12:56)
[2021-05-27] MEDS: lactated ringers 1,000 ML 75 ML IV (12:58)
--- NOTE | 2021-05-27 13:48 | P.DS_ITS ---
Discharge Providers Date of Admission: 05/25/21 15:46 Date of Discharge: May 27, 2021 Attending Provider at Admission: Ian Oviedo Attending Provider at Discharge: Ian Oviedo Primary Care Provider: Solomon Farrell MD Diagnoses at Discharge Discharge Diagnosis (1) COVID-19: Status: Acute (2) Lung transplant recipient: Status: Acute (3) Lactic acidosis: Status: Acute (4) Nausea and vomiting: Status: Acute (5) Elevated d-dimer: Status: Acute (6) Thrombocytopenia: Status: Acute Reason for Visit Reason for Visit: COVID SX:DOUBLE LUNG TRANSPLANT Hospital Course Hospital Course Pleasant 55-year-old gentleman with history of IPF, 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 Noted febrile on presentation to ER. With mixed acid-base disorder with contraction alkalosis, respiratory alkalosis, anion gap metabolic acidosis with lactic acidosis, with noted moderate D-dimer elevation, no PE noted on CT angiogram. Diffuse multilobar groundglass attenuation from pneumonitis noted. Very small layering left pleural effusion with associated area of pleural thickening, may be fibrosis or fat. Mild hyponatremia 129. BUN 30, creatinine 1.1, bicarb 17, anion gap 25.2, lactic acid 4, CRP 113. Came back positive on rapid antigen for COVID-19. Has been previously vaccinated with J&J vaccine. With known exposure to COVID-19. In ER received Decadron, remdesivir, monoclonal antibody infusion. Arrangements made for transfer to [facility] for further assessment and care with transplant team, however, no beds have been available so far. With sepsis on presentation with fever, tachycardia, blood cultures were r equested, urine bacterial antigens requested, although he is able to give a sample today, empirically started on Zosyn and continued on his usual Bactrim, fluconazole. His condition quite significantly improved. Nausea and vomiting resolved. He requested to advance diet as tolerated consider carbohydrate diet well. Diarrhea improved yesterday and resolved today. He no longer is having shaking chills. Fevers have resolved, and last fever was at 11:45 AM yesterday. He never ended up requiring oxygen. He per discussion with his family declined remdesivir from yesterday. Today feeling much better he requested to be discharged home with plans to follow-up with his transplant team in [place]. Home oxygen evaluation is requested, although not anticipated need for oxygen given good saturation so far. He will complete additional 3 days of dexamethasone, subsequent resume usual dose of prednisone. 7 days of Levaquin. He understands concern with immunosuppressed state his conditions may not present as usual in an immunocompetent host and may worsen severely and rapidly, understand to seek medical attention immediately in case of any concerning changes. With noted chronic thrombocytopenia, platelets are noticed to be decreased slightly compared to usual, down to 88,000 yesterday and 70,000 today. Possibly transient suppression secondary to Zosyn, however, he is asked to follow-up platelet level in 4 days. Physical Exam Const: COMMON NORMALS: no acute distress, patient oriented x3 and alert GENERAL APPEARANCE: cooperative and comfortable ORIENTATION/CONSCIOUSNESS: Yes awake HENMT: COMMON NORMALS: oropharynx normal Neck/C-Spine: COMMON NORMALS: no JVD Resp: COMMON NORMALS: normal respiratory effort and clear to auscultation bilaterally AUSCULTATION: clear to auscultation bilaterally Cardio: COMMON NORMALS: no JVD, regular rhythm, S1 normal heart sound present, S2 normal heart sound present and No murmurs present (Cardio) RHYTHM: regular rhythm HEART SOUNDS: S1 normal heart sound present and S2 normal heart sound present GI: COMMON NORMALS: Normal to inspection, nondistended, normoactive bowel sounds present, Soft to palpation and non-tender PALPATION: Yes Soft to palpation Extremity: COMMON NORMALS: no joint enlargement and no pedal edema Neuro: COMMON NORMALS: patient oriented x3 and moves all extremities SENSORIUM/ORIENTATION: Yes alert Skin: COMMON NORMALS: no rashes or lesions noted GENERAL SKIN EXAM: no rashes or lesions noted Discharge Data Data Completed and Pending: Completed Studies During Hospitalization Category Date Time Status CT angio chest PE protcl [id number] Stat Cat Scan 05/25/21 13:05 Completed XR chest 1V luis ble [id number] Stat Exams 05/25/21 11:19 [place] [id number] Routin e Ultrasound 05/26/21 19:04 Completed Pending at discharge Category Date Time Status Bacterial Antigen Routine Lab 05/25/21 19:04 Ordered Blood Culture Sta t Lab 05/25/21 16:55 Results Complete Blood Co unt w/Auto AM LABS Lab 05/28/21 04:00 Ordered Complete Blood Co unt w/Auto AM LABS Lab 05/29/21 04:00 Ordered Comprehensive Met abolic Panel AM LA BS Lab 05/28/21 04:00 Ordered Comprehensive Met abolic Panel AM LA BS Lab 05/29/21 04:00 Ordered Coronavirus Test [facility] Stat Lab 05/25/21 11:47 Received Legionella Antige n STAT Routine Lab 05/27/21 11:56 Uncollected Sputum Culture an d Gram Stain Routi ne Lab 05/25/21 19:04 Ordered Labs from last 24 hours 05/27/21 05/27/21 05/27/21 11:50 06:34 05:30 WBC RBC Hgb Hct MCV MCH MCHC RDW Plt Count MPV Neut % (Auto) Lymph % (Auto) [place] % (Auto) Eos % (Auto) Baso % (Auto) Neut # (Auto) Lymph # (Auto) [place] # (Auto) Eos # (Auto) Baso # (Auto) Nucleated RBC % (a uto) Nucleated RBCs # D-Dimer 1.04 H Sodium Potassium Chloride Carbon Dioxide Anion Gap BUN Creatinine GFR Calculation Glucose POC Glucose 229 H 245 H Serum Osmolality Calculated Osmolal ity Calcium Total Bilirubin AST ALT Alkaline Phosphata se C-Reactive Protein Total Protein Albumin Globulin 05/27/21 05/27/21 05/26/21 05:30 05:30 21:08 WBC 4.5 RBC 4.14 Hgb 13.1 Hct 38.6 L MCV 93.2 MCH 31.6 MCHC 33.9 RDW 12.5 Plt Count 70 L MPV 12.8 H Neut % (Auto) 68.0 Lymph % (Auto) 20.6 [place] % (Auto) 7.8 Eos % (Auto) 0.0 Baso % (Auto) 0.2 Neut # (Auto) 3.04 Lymph # (Auto) 0.9 [place] # (Auto) 0.4 Eos # (Auto) 0.0 Baso # (Auto) 0.0 Nucleated RBC % (a uto) 0 Nucleated RBCs # 0.0 D-Dimer Sodium 131 L Potassium 4.1 Chloride 99 Carbon Dioxide 22 Anion Gap 14.1 BUN 23 H Creatinine 0.5 L GFR Calculation 171.4 H Glucose 208 H POC Glucose 265 H Serum Osmolality Calculated Osmolal ity 282 L Calcium 8.4 L Total Bilirubin 0.4 AST 34 ALT 22 Alkaline Phosphata se 26 L C-Reactive Protein 104.8 H Total Protein 6.1 L Albumin 3.1 L Globulin 3.0 05/26/21 05/25/21 16:22 11:28 WBC RBC Hgb Hct MCV MCH MCHC RDW Plt Count MPV Neut % (Auto) Lymph % (Auto) [place] % (Auto) Eos % (Auto) Baso % (Auto) Neut # (Auto) Lymph # (Auto) [place] # (Auto) Eos # (Auto) Baso # (Auto) Nucleated RBC % (a uto) Nucleated RBCs # D-Dimer Sodium Potassium Chloride Carbon Dioxide Anion Gap BUN Creatinine GFR Calculation Glucose POC Glucose 236 H Serum Osmolality 293 Calculated Osmolal ity Calcium Total Bilirubin AST ALT Alkaline Phosphata se C-Reactive Protein Total Protein Albumin Globulin Vitals: Last Vital Signs Temp 98.5 F 05/27/21 11:50 Pulse 61 05/27/21 11:50 Resp 18 05/27/21 11:50 BP 130/85 05/27/21 11:50 Pulse Ox 95 05/27/21 11:50 Discharge Plan Discharge Patient Disposition: Home Condition: Stable Prescriptions: New benzonatate 100 mg Capsule 100 mg PO TID PRN (Reason: Cough) Qty: 30 RF: 0 dexamethasone 6 mg tablet 6 mg PO DAILY Qty: 3 RF: 0 levofloxacin 750 mg tablet 750 mg PO DAILY 7 Days Qty: 7 RF: 0 Continued fluconazole 100 mg tablet 100 mg PO DAILY RF: 0 valganciclovir 450 mg tablet 900 mg PO DAILY RF: 0 ondansetron HCl 4 mg tablet 4 mg PO Q6H PRN (Reason: N/V) RF: 0 aspirin [Aspirin Low Dose] 81 mg Tablet,Delayed Release (Dr/Ec) 81 mg PO DAILY RF: 0 mycophenolate mofetil 500 mg tablet 1,000 mg PO BID RF: 0 insulin lispro 100 unit/mL Solution See Rx Instructions .ROUTE .COMPLEX RF: 0 tacrolimus 0.5 mg capsule See Rx Instructions .ROUTE .COMPLEX RF: 0 rosuvastatin 10 mg tablet 10 mg PO DAILY RF: 0 Lantus Solostar U-100 Insulin 100 unit/mL (3 mL) Insulin Pen 40 unit SUBCUT QAM RF: 0 carvedilol 12.5 mg tablet 12.5 mg PO BID RF: 0 sulfamethoxazole-trimethoprim 800-160 mg tablet 1 tab PO .ON MON,WED,FRI RF: 0 citalopram 20 mg tablet 20 mg PO DAILY RF: 0 pantoprazole 40 mg tablet,delayed release (DR/EC) 40 mg PO DAILY RF: 0 pramipexole 0.125 mg tablet 0.25 mg PO DAILY RF: 0 Stool Softener 100 mg Capsule 100 mg PO DAILY RF: 0 zinc 50 mg Tablet 50 mg PO DAILY RF: 0 Vitamin D3 25 mcg (1,000 unit) Capsule 25 mcg PO DAILY RF: 0 Oysco 500/D 500 mg(1,250mg) -200 unit tablet 1 tab PO BID RF: 0 Mucinex 600 mg Tablet Extended Release 12hr 600 mg PO Q12H PRN (Reason: Congestion) RF: 0 melatonin 1 cap PO BEDTIME RF: 0 valerian root 1 tab PO BEDTIME RF: 0 Held prednisone 10 mg tablet 10 mg PO DAILY RF: 0 Hold Instructions: Resume on 05/31/21. Discharge Orders: Discharge Order (Routine); Ordered 05/27/21 Ordered By: Ian Oviedo Other Ambulatory Orders: Complete Blood Count w/Auto (Routine) Timeframe: 4 Days Location: Determined by Patient Ordered By: Ian Oviedo Referrals: Solomon Farrell MD [Primary Care Provider] - 7-10 days Laz Sandhu MD [Referring] - 7-10 days Discharge Diet: Usual diet and Diabetic Discharge Activity: Increase activity as tolerated Activity Restrictions/Additional Instructions: Please continue isolation for additional 13 days. Complete additional 3 days of dexamethasone, hold prednisone while taking, then resume your usual prednisone dose. Please note that your platelet level has decreased slightly over the neuro, down to 70,000. This may have been secondary to antibiotic Zosyn, however, please have your platelet level drawn in 4 days, have your primary doctor follow-up to level. In case you notice bleeding, please stop aspirin and seek medical attention. Avoid injury. In case you notice any additional high fevers, feeling unwell, shortness of breath, oxygen level below 88% (consider obtaining pulse oximetry device if you do not already have 1), chest pain or pressure, or any other concern symptoms, please seek medical attention immediately. Discharge Attestations Time Spent in Discharge Care*: greater than 30 min Quality Metrics Clinical Quality Measures During this hospital stay, did patient experience: None Coding Level of Care Code Acute g FW DC note Diagnoses COVID-19 U07.1 Lung transplant recipient Z94.2 Lactic acidosis E87.2 Nausea and vomiting R11.2 Elevated d-dimer R79.89 Thrombocytopenia D69.6
[2021-05-27 15:46] VITALS: BP 138/83; PULSE 67; RESP 18; TEMP 36.4; O2SAT 91
[2021-05-27 15:56] VITALS: O2SAT 92; O2SAT 95
[2021-05-27 17:07] LABS: Coronavirus Test Green County Detected
[2021-05-27 17:08] LABS: Glucose Point of Care 252 mg/dL (70-110)
== END 2021-05-27 17:34 | disposition home or self-care (01) | DRG 871 ==
LOC: ER 15:22 → MEDSURG 15:46
PROVIDERS: Admitting Provider Internal Medicine; Emergency Provider Family Medicine; PCP Family Medicine; Visit Provider Internal Medicine
DX: A41.9 Sepsis, unspecified organism (principal); U07.1 COVID-19; J12.82 Pneumonia due to coronavirus disease 2019; E87.1 Hypo-osmolality and hyponatremia; E87.4 Mixed disorder of acid-base balance; Z94.2 Lung transplant status; E11.9 Type 2 diabetes mellitus without complications; I10 Essential (primary) hypertension; Z85.47 Personal history of malignant neoplasm of testis; I25.2 Old myocardial infarction; G47.33 Obstructive sleep apnea (adult) (pediatric); G25.81 Restless legs syndrome; D69.6 Thrombocytopenia, unspecified; Z87.891 Personal history of nicotine dependence; Z99.89 Dependence on other enabling machines and devices; Z79.4 Long term (current) use of insulin; Z79.82 Long term (current) use of aspirin
CPT/HCPCS: 36415; 36416; 36600; 71045; 71275; 80053; 82803; 82962; 83605; 83930; 85025; 85378; 86140; 86403; 87040; 87426; 87449; 87635; 93970; 94664; 96365; 96367; 96372; 96375; 99291; J1100; J1650; J1815 ×2; J2060; J2543; J7030; J7507; J7517; Q9967

== ENCOUNTER 2021-05-30 20:13 | Emergency (ER) | payer BC, SELFPAY ==
[2021-05-30 20:15] VITALS: BP 106/80; PULSE 92; RESP 28; TEMP 38; O2SAT 91; BMI 33.2
--- NOTE | 2021-05-30 20:20 | ECG_ITS ---
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 Measurements Intervals [place] Rate: 107 P: 31 NH: 119 QRS: 16 QRSD: 104 T: 63 QT: 356 QTc: 475 Interpretive Statements SINUS TACHYCARDIA WITH SHORT NH INTERVAL MODERATE ST DEPRESSION [0.05+ mV ST DEPRESSION] Compared to ECG 03/03/2020 00:23:31 Short NH interval now present ST (T wave) deviation now present Sinus rhythm no longer present Electronically Signed On 05-31-2021 12:08:53 NEGATIVE RESTORER by Sherin Hunt M.D. [id number]
--- NOTE | 2021-05-30 20:20 | XRR_ITS ---
PROCEDURE INFORMATION: Exam: XR Chest Exam date and time: 05/30/2021 8:20 PM Age: 55 years old Clinical indication: Dyspnea and shortness of breath TECHNIQUE: Imaging protocol: XR of the chest. Views: 1 view. COMPARISON: CR XR chest 1V portable [id number] 05/25/2021 11:36 AM FINDINGS: Lungs: Bilateral mixed interstitial and airspace infiltrates. Pleural spaces: Unremarkable. No pleural effusion. No pneumothorax. Heart/Mediastinum: Unremarkable. No cardiomegaly. Bones/joints: Unremarkable. XR/XR chest 1V portable [id number] IMPRESSION: Bilateral mixed interstitial and airspace infiltrates. Radiation Dose CTDIVOL = (mGy): DLP = (mGy-cm)
--- NOTE | 2021-05-30 21:05 | PC.NURSE ---
Family has called and refused remdisavir.
[2021-05-30 21:17] LABS: Basophils % 0.2 %; Hematocrit 41.8 % (42.0-52.0); Lymphocytes # 1.4 10^3/uL (0.8-4.8); Mean Corpuscular HGB Conc 35.9 g/dL (30.0-36.0); Mean Corpuscular Hemoglobin 31.8 pg (28.0-34.0); Mean Corpuscular Volume 88.6 fl (80-94); Mean Platelet Volume 12.3 fL (7.4-10.4); Monocytes # 0.3 10^3/uL (0.2-0.9); Monocytes % 5.2 %; Neutrophils # 4.14 10^3/uL (1.8-7.7); Neutrophils % 66.9 %; Nucleated Red Blood Cells % 0 %; Platelet Count 90 10^3/cmm (130-400); Red Blood Count 4.72 10^6/uL (4.1-5.3); Red Cell Distribution Width 11.9 % (12.1-15.1); White Blood Count 6.2 10^3/uL (4.0-10.0)
[2021-05-30] MEDS: sodium chloride 0.9% 1,000 ML 999 ML IV ×2 (21:24→23:08)
[2021-05-30 21:28] VITALS: RESP 22; O2SAT 92
[2021-05-30] MEDS: acetaminophen 500 mg Tablet 1000 MG PO (21:28)
[2021-05-30] MEDS: morphine 4 mg/mL SDV 1 mL IVP (21:28)
[2021-05-30 21:35] LABS: Lactic Sepsis W/Reflex 2.8 mmol/L (0.5-2.2)
[2021-05-30 21:39] LABS: Troponin T (5th) Once 19 ng/L (0-15)
[2021-05-30 21:42] LABS: Slide Review Slide Review Perform
[2021-05-30 21:45] LABS: NT Pro B Type Natriuretic Pept 778 pg/mL (0-125)
--- NOTE | 2021-05-30 21:51 | W.ED.GENADLT ---
HPI - General Adult General: Chief complaint: COVID symptoms Stated complaint: RESP. 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 Patient was recently admitted to the hospital for Covid pneumonia. Since then, patient has been recovering at home. However earlier today, patient reports worsening shortness of breath for the last 2 to 3 days. Patient called EMS. On arrival patient had an O2 sat of 81% on room air. EMS put patient on 13 L of nonrebreather with improvement in O2 sat to 94%. Arrival, patient tells me that she is having dyspnea x3 days. Reports fever and cough. Onset: 3 days ago Duration:3 days Location:home Severity:moderate Review of Systems Narrative: Constitutional: +fever, +chills. HEENT: No vision changes CV: No chest pain, no palpitations PULM: +cough, +dyspnea. GI: No abdominal pain, no N/V/D. : No dysuria MSKEL: No muscle pain SKIN: No new rashes, no lesions. NEURO: No headache, no focal weakness. HEME: No visible bruises PSYCH: Normal mood PFSH ED PFSH: Medical History (Updated 05/30/21 @ 20:59 by Huyen Magallon MD) DM type 2 (diabetes mellitus, type 2) Elevated d-dimer History of testicular cancer Lung transplant recipient Myocardial infarction FAB (obstructive sleep apnea) Pulmonary fibrosis RLS (restless legs syndrome) Thrombocytopenia Surgical History History of testicular surgery Hx of lung transplant Family History Other No significant family history Social History Smoking and tobacco status: former smoker Alcohol intake: never Lives independently: Yes Household members: spouse Marital status: Current occupational status: employed Physical Exam Narrative: EXAM NARRATIVE: Head: Atraumatic Eyes: PERRL, conjunctiva without injection ENT: Dry membrane moist NECK: Supple, ROM intact LUNGS: LCTAB, no crackles/rhonchi CV: Sinus tacycardia ABDOMEN: Soft, +mild tenderness to palpation in all quadrants, no guarding or rebound tenderness EXTREMITY: Normal ROM SKIN: No rash or erythema NEURO: Awake and alert, no focal motor deficits PSYCH: Normal mood and affect Course Vital Signs: Vital signs: Vital Signs Temperature 100.4 F H 05/30/21 20:15 Pulse Rate 85 05/30/21 23:00 Respiratory Rate 28 H 05/30/21 23:00 Blood Pressure 107/64 05/30/21 23:00 Pulse Oximetry 95 05/30/21 23:00 MDM - General Adult MDM Narrative: Medical decision making narrative: Patient is a 55-year-old male with a history of double lung transplant secondary interstitial fibrosis presenting to the emergency room for worsening cough, hypoxemia, shortness of breath in setting of recent Covid diagnosis and hospitalization. On arrival, patient is satting at 93% on 6 L nasal cannula. Patient is febrile to 100 100.4. No signs of respiratory distress. Has diffuse tenderness palpation on abdominal exam. EMS intervention: Decadron 6 mg Workup: COVID workup Intervention: IVF tylenol, offered remdesivir but declined On reassessment at 11:53 PM, I have discussed case with Dr. Concetta Lowe who recommended IV antibiotics and transfer. However the transfer center tells me that there is no beds available at this time. Patient continues to be satting comfortably on room air. Patient received vancomycin, cefepime and Bactrim for empiric coverage and prophylaxis given transplant and on steroid taper. I discussed case with Dr. Cochran thinks that given patient's complex transplant history, will need multidisciplinary team to manage hypoxemia in the setting of transplant and Covid. Disposition: transfer to outside hospital Lab Data: Labs: Lab Results 05/30/21 05/30/21 05/30/21 21:00 21:00 21:00 WBC 6.2 10^3/uL 10^3/ uL (4.0-10.0) RBC 4.72 10^6/uL 10^6 /uL (4.1-5.3) Hgb 15.0 g/dL g/dL (11.7-16.6) Hct 41.8 % L % (42.0-52.0) MCV 88.6 fl fl (80-94) MCH 31.8 pg pg (28.0-34.0) MCHC 35.9 g/dL g/dL (30.0-36.0) RDW 11.9 % L % (12.1-15.1) Plt Count 90 10^3/cmm L 10^ 3/cmm (130-400) MPV 12.3 fL H fL (7.4-10.4) Neut % (Auto) 66.9 % % Lymph % (Auto) 23.0 % % [place] % (Auto) 5.2 % % Eos % (Auto) 0.0 % % Baso % (Auto) 0.2 % % Neut # (Auto) 4.14 10^3/uL 10^3 /uL (1.8-7.7) Lymph # (Auto) 1.4 10^3/uL 10^3/ uL (0.8-4.8) [place] # (Auto) 0.3 10^3/uL 10^3/ uL (0.2-0.9) Eos # (Auto) 0.0 10^3/uL 10^3/ uL (0.0-0.8) Baso # (Auto) 0.0 10^3/uL 10^3/ uL (0.0-0.1) Nucleated RBC % (a uto) 0 % % Nucleated RBCs # 0.0 /100WBC /100W BC Fibrinogen 551 mg/dL H mg/dL (174-498) Sodium 133 mmol/L L mmol /L (136-145) Potassium 4.1 mmol/L mmol/L (3.5-5.1) Chloride 96 mmol/L L mmol/ L (98-107) Carbon Dioxide 18 mmol/L L mmol/ L (22-29) Anion Gap 23.1 H (5-19) BUN 20 mg/dL mg/dL (6-20) Creatinine 0.8 mg/dL mg/dL (0.7-1.2) GFR Calculation 99.6 mL/min mL/mi n (90-130) Glucose 215 mg/dL H mg/dL (65-115) Calculated Osmolal ity 285 mOsm/kg mOsm/ kg (285-295) Lactic Acid Calcium 8.6 mg/dL mg/dL (8.5-10.5) Magnesium 1.4 mg/dL L mg/dL (1.7-2.3) Ferritin 2454 ng/mL H ng/m L (30-400) Total Bilirubin 0.7 mg/dL mg/dL (0.15-1.2) AST 26 U/L U/L (0-40) ALT 25 U/L U/L (0-41) Alkaline Phosphata se 36 IU/L L IU/L (40-130) Troponin T Gen 5 n g/L C-Reactive Protein 115.6 mg/L H mg/L (0.0-4.9) NT-Pro-B Natriuret Pep 778 pg/mL H pg/mL (0-125) Total Protein 6.4 g/dL L g/dL (6.6-8.7) Albumin 3.5 g/dL g/dL (3.5-5.2) Globulin 2.9 g/dL g/dL (1.3-4.6) Procalcitonin 0.20 ng/mL ng/mL (0-0.5) 05/30/21 05/30/21 21:00 21:00 WBC RBC Hgb Hct MCV MCH MCHC RDW Plt Count MPV Neut % (Auto) Lymph % (Auto) [place] % (Auto) Eos % (Auto) Baso % (Auto) Neut # (Auto) Lymph # (Auto) [place] # (Auto) Eos # (Auto) Baso # (Auto) Nucleated RBC % (a uto) Nucleated RBCs # Fibrinogen Sodium Potassium Chloride Carbon Dioxide Anion Gap BUN Creatinine GFR Calculation Glucose Calculated Osmolal ity Lactic Acid 2.8 mmol/L H mmol /L (0.5-2.2) Calcium Magnesium Ferritin Total Bilirubin AST ALT Alkaline Phosphata se Troponin T Gen 5 n g/L 19 ng/L H ng/L (0-15) C-Reactive Protein NT-Pro-B Natriuret Pep Total Protein Albumin Globulin Procalcitonin Imaging Data^: Other Imaging: Radiologist's impression: [address] [id number] ReportSigned Patient: Brandon ChiMichoacanojayant #: [id number]: 1965Acct#:[id number]/Sex: 55 / MADM Date: 05/30/21Loc: ERRoom/Bed:Attending Dr: Ordering Provider/Ordering MD: Huyen Magallon MD Date of Service: 05/30/21 Procedure(s): XR chest 1V portable [id number] Accession Number(s): [id number] Report Number: [id number] PROCEDURE INFORMATION: Exam: XR Chest Exam date and time: 05/30/2021 8:20 PM Age: 55 years old Clinical indication: Dyspnea and shortness of breath TECHNIQUE: Imaging protocol: XR of the chest. Views: 1 view. COMPARISON: CR XR chest 1V portable [id number] 05/25/2021 11:36 AM FINDINGS: Lungs: Bilateral mixed interstitial and airspace infiltrates. Pleural spaces: Unremarkable. No pleural effusion. No pneumothorax. Heart/Mediastinum: Unremarkable. No cardiomegaly. Bones/joints: Unremarkable. XR/XR chest 1V portable [id number] IMPRESSION: Bilateral mixed interstitial and airspace infiltrates. Radiation Dose CTDIVOL = (mGy): DLP = (mGy-cm) Dictated By:Sachin Vazquez MDSigned By:Sachin Vazquez MDSigned Date/Time:05/30/21D/ 19 Discharge Plan Discharge Patient Disposition: Admitted As Inpatient Clinical Impression: Hypoxemia, Acute dyspnea Condition: Stable Coding Level of Care Code ED Supervisor [employer] for [employer] Kelley
[2021-05-30 21:56] LABS: Alanine Aminotransferase 25 U/L (0-41); Albumin Level 3.5 g/dL (3.5-5.2); Alkaline Phosphatase 36 IU/L (40-130); Anion Gap 23.1 (5-19); Aspartate Amino Transferase 26 U/L (0-40); Blood Urea Nitrogen 20 mg/dL (6-20); C Reactive Protein 115.6 mg/L (0.0-4.9); Calcium 8.6 mg/dL (8.5-10.5); Carbon Dioxide 18 mmol/L (22-29); Chloride 96 mmol/L (98-107); Globulin 2.9 g/dL (1.3-4.6); Glomerular Filtration Rate 99.6 mL/min (90-130); Glucose 215 mg/dL (65-115); Magnesium 1.4 mg/dL (1.7-2.3); Osmolality Calculated 285 mOsm/kg (285-295); Potassium 4.1 mmol/L (3.5-5.1); Sodium 133 mmol/L (136-145); Total Bilirubin 0.7 mg/dL (0.15-1.2); Total Protein 6.4 g/dL (6.6-8.7)
[2021-05-30 22:00] VITALS: BP 112/66; PULSE 88; RESP 22; O2SAT 93
[2021-05-30 22:17] LABS: Fibrinogen 551 mg/dL (174-498)
[2021-05-30 22:58] LABS: Reflex Lactate Order REFLEX LACTIC ORDERD
[2021-05-30 23:00] VITALS: BP 107/64; PULSE 85; RESP 28; O2SAT 95
[2021-05-30] MEDS: sulfamethoxazole-trimeth DS 160-800 mg Tablet 1 TAB PO (23:00)
[2021-05-30] MEDS: cefepime 1,000 MG in sodium chloride 0.9% (plus) 50 ML 100 MG IV (23:00)
[2021-05-30] MEDS: ondansetron 2 mg/ML SDV 2 mL 4 MG IVP (23:08)
[2021-05-30] MEDS: vancomycin 1,000 MG in sodium chloride 0.9% 250 ML 250 MG IV (23:12)
[2021-05-30 23:16] LABS: Ferritin 2454 ng/mL (30-400)
[2021-05-31 00:21] LABS: D Dimer 2.81 ug/mIFEU (0-0.59)
[2021-05-31 00:22] LABS: Lactic Acid level (Lactate) 1.5 mmol/L (0.5-2.2)
[2021-05-31 00:23] LABS: Influenza A by IFA Negative (Negative); Influenza B by IFA Negative (Negative)
[2021-05-31 03:24] VITALS: O2SAT 96
[2021-05-31 03:25] VITALS: BP 120/74; PULSE 72; RESP 24; O2SAT 96
[2021-05-31] MEDS: magnesium sulfate premix 2 GM/50 ML PIGGYBACK IV (04:19)
[2021-05-31 07:27] VITALS: BP 132/98; PULSE 79; O2SAT 93
[2021-05-31 10:57] VITALS: BP 120/89; PULSE 79; O2SAT 91
[2021-05-31 13:48] VITALS: BP 132/64; PULSE 83; O2SAT 91
[2021-05-31] MEDS: LORazepam 2 mg/mL INJ 1 mL IVP (16:44)
[2021-05-31 18:22] VITALS: BP 132/64; PULSE 79; O2SAT 91
== END 2021-05-31 18:24 | disposition admitted as inpatient to this hospital (09) ==
PROVIDERS: Emergency Provider Emergency Medicine; PCP Family Medicine
DX: R06.00 Dyspnea, unspecified (principal); R09.02 Hypoxemia; Z94.2 Lung transplant status; E11.9 Type 2 diabetes mellitus without complications; Z85.47 Personal history of malignant neoplasm of testis; I25.2 Old myocardial infarction; Z87.891 Personal history of nicotine dependence
CPT/HCPCS: 71045; 80053; 82728; 83605; 83735; 83880; 84145; 84484; 85025; 85378; 85384; 86140; 87040; 87804; 93005; 96365; 96367; 96375; 99285; J0692; J2060; J2270; J2405; J3370; J3475; J7030; J7050

== ENCOUNTER 2021-06-29 16:03 | Outpatient (RCR) | payer BC, SELFPAY | END 2021-07-15 23:59 | disposition home or self-care (01) | LOC: SPT 16:03 | PROVIDERS: PCP Family Medicine; Referring Provider Family Medicine; Visit Provider Family Medicine | DX: R53.1 Weakness (principal) | CPT/HCPCS: 97161 ==

== ENCOUNTER 2021-09-26 11:26 | Outpatient (CLI) | payer OTHER, SELFPAY ==
[2021-09-26 11:53] LABS: Basophils # 0.1 10^3/uL (0.0-0.1); Basophils % 0.6 %; Eosinophils % 0.2 %; Hematocrit 40.1 % (42.0-52.0); Hemoglobin 13.3 g/dL (11.7-16.6); Lymphocytes % 22.7 %; Mean Corpuscular HGB Conc 33.2 g/dL (30.0-36.0); Mean Corpuscular Hemoglobin 30.9 pg (28.0-34.0); Mean Platelet Volume 11.1 fL (7.4-10.4); Monocytes # 0.4 10^3/uL (0.2-0.9); Monocytes % 4.3 %; Neutrophils # 6.26 10^3/uL (1.8-7.7); Neutrophils % 71.5 %; Nucleated Red Blood Cells % 0 %; Platelet Count 135 10^3/cmm (130-400); Red Blood Count 4.31 10^6/uL (4.1-5.3); Red Cell Distribution Width 13.6 % (12.1-15.1); White Blood Count 8.8 10^3/uL (4.0-10.0)
[2021-09-26 12:15] LABS: Alanine Aminotransferase 14 U/L (0-41); Alkaline Phosphatase 43 IU/L (40-130); Aspartate Amino Transferase 14 U/L (0-40); Blood Urea Nitrogen 14 mg/dL (6-20); Calcium 9.3 mg/dL (8.5-10.5); Carbon Dioxide 27 mmol/L (22-29); Chloride 101 mmol/L (98-107); Globulin 2.8 g/dL (1.3-4.6); Glomerular Filtration Rate 138.4 mL/min (90-130); Glucose 202 mg/dL (65-115); Osmolality Calculated 294 mOsm/kg (285-295); Sodium 139 mmol/L (136-145); Total Bilirubin 0.2 mg/dL (0.15-1.2); Total Protein 6.8 g/dL (6.6-8.7)
[2021-09-29 02:02] LABS: CMV DNA By PCR NOT DETECTED; CMV DNA, QN PCR NOT DETECTED Log IU/mL; SOURCE PLASMA
== END 2021-09-26 11:27 | disposition home or self-care (01) ==
PROVIDERS: PCP Family Medicine; Visit Provider Internal Medicine Pulmonary Disease
DX: Z48.24 Encounter for aftercare following lung transplant (principal)
CPT/HCPCS: 80053; 80197; 85025; 87496

== ENCOUNTER 2022-02-17 10:34 | Outpatient (CLI) | payer MEDICARE, SELFPAY ==
[2022-02-17 11:25] LABS: Basophils % 0.3 %; Eosinophils # 0.1 10^3/uL (0.0-0.8); Eosinophils % 0.6 %; Hematocrit 41.2 % (42.0-52.0); Hemoglobin 13.5 g/dL (11.7-16.6); Lymphocytes # 3.6 10^3/uL (0.8-4.8); Lymphocytes % 34.5 %; Mean Corpuscular HGB Conc 32.8 g/dL (30.0-36.0); Mean Corpuscular Hemoglobin 30.4 pg (28.0-34.0); Mean Corpuscular Volume 92.8 fl (80-94); Mean Platelet Volume 10.4 fL (7.4-10.4); Neutrophils # 5.63 10^3/uL (1.8-7.7); Neutrophils % 54.2 %; Nucleated Red Blood Cells % 0 %; Platelet Count 110 10^3/cmm (130-400); Red Blood Count 4.44 10^6/uL (4.1-5.3); Red Cell Distribution Width 12.5 % (12.1-15.1); White Blood Count 10.4 10^3/uL (4.0-10.0)
[2022-02-17 11:49] LABS: Alanine Aminotransferase 13 U/L (0-41); Albumin Level 3.6 g/dL (3.5-5.2); Alkaline Phosphatase 53 IU/L (40-130); Anion Gap 14.1 (5-19); Aspartate Amino Transferase 14 U/L (0-40); Blood Urea Nitrogen 19 mg/dL (6-20); Calcium 9.5 mg/dL (8.5-10.5); Carbon Dioxide 27 mmol/L (22-29); Chloride 100 mmol/L (98-107); Globulin 3.2 g/dL (1.3-4.6); Glomerular Filtration Rate 138.4 mL/min (90-130); Glucose 195 mg/dL (65-115); Osmolality Calculated 292 mOsm/kg (285-295); Potassium 4.1 mmol/L (3.5-5.1); Sodium 137 mmol/L (136-145); Total Bilirubin 0.3 mg/dL (0.15-1.2); Total Protein 6.8 g/dL (6.6-8.7)
[2022-02-21 18:49] LABS: CMV DNA By PCR NOT DETECTED; CMV DNA, QN PCR NOT DETECTED Log IU/mL; SOURCE WHOLE BLOOD
== END 2022-02-17 10:35 | disposition home or self-care (01) ==
PROVIDERS: PCP Family Medicine; Visit Provider Internal Medicine Pulmonary Disease
DX: Z48.24 Encounter for aftercare following lung transplant (principal)
CPT/HCPCS: 36415; 80053; 80197; 85025; 87496

== ENCOUNTER → 2022-05-25 11:33 | Day surgery (SDC) | payer MEDICARE, OTHER, SELFPAY ==
[2022-05-25] MEDS: acetaminophen 325 mg Tablet 650 MG PO (12:04)
[2022-05-25] MEDS: diphenhydrAMINE 25 mg Capsule PO (12:04)
[2022-05-25 12:08] VITALS: BP 123/83; PULSE 92; RESP 18; TEMP 36.1; O2SAT 96
== END ==
LOC: GILAB 11:36
PROVIDERS: PCP Family Medicine; Visit Provider Internal Medicine Pulmonary Disease
DX: Z48.24 Encounter for aftercare following lung transplant (principal); T86.810 Lung transplant rejection; Y83.8 Other surgical procedures as the cause of abnormal reaction of the patient, or of later complication, without mention of misadventure at the time of the procedure
CPT/HCPCS: 96365; 96366; J1561

== ENCOUNTER 2022-06-15 15:13 | Outpatient (CLI) | payer MEDICARE, OTHER, SELFPAY ==
[2022-06-15 18:15] LABS: Adenovirus Not Detected (NOT DETECT); Chlamydia Pneumoniae Not Detected (NOT DETECT); Coronavirus 229E,HKU1,NL63,OC4 Not Detected (NOT DETECT); Human Metapneumovirus Not Detected (NOT DETECT); Human Rhinovirus/Enterovirus Not Detected (NOT DETECT); Influenza A Detected (NOT DETECT); Influenza A H1 Not Detected (NOT DETECT); Influenza A H1-2009 Detected (NOT DETECT); Influenza A H3 Not Detected (NOT DETECT); Influenza B Not Detected (NOT DETECT); Mycoplasma Pneumoniae Not Detected (NOT DETECT); Parainfluenza Virus Type 1 Not Detected (NOT DETECT); Parainfluenza Virus Type 2 Not Detected (NOT DETECT); Parainfluenza Virus Type 3 Not Detected (NOT DETECT); Parainfluenza Virus Type 4 Not Detected (NOT DETECT); Respiratory Syncytial Virus A Not Detected (NOT DETECT); Respiratory Syncytial Virus B Not Detected (NOT DETECT); SARS-COV-2 Not Detected (NOT DETECT)
== END 2022-06-15 15:14 | disposition home or self-care (01) ==
PROVIDERS: PCP Family Medicine; Visit Provider Internal Medicine Pulmonary Disease
DX: Z48.24 Encounter for aftercare following lung transplant (principal)
CPT/HCPCS: 87486; 87581; 87633

== ENCOUNTER → 2022-06-22 12:11 | Day surgery (SDC) | payer MEDICARE, OTHER, SELFPAY ==
[2022-06-22] MEDS: immune globulin (Gamunex) 40 GM in empty flexible container 1 EACH IV (12:32)
[2022-06-22 12:34] VITALS: BP 154/88; PULSE 94; RESP 18; TEMP 36; O2SAT 97
== END ==
LOC: GILAB 12:13
PROVIDERS: PCP Family Medicine; Visit Provider Internal Medicine Pulmonary Disease
DX: Z48.24 Encounter for aftercare following lung transplant (principal)
CPT/HCPCS: 96365; 96366; J1561

== ENCOUNTER → 2022-07-20 11:58 | Day surgery (SDC) | payer MEDICARE, SELFPAY ==
[2022-07-20] MEDS: acetaminophen 325 mg Tablet 650 MG PO (12:19)
[2022-07-20] MEDS: diphenhydrAMINE 25 mg Capsule PO (12:19)
[2022-07-20 12:24] VITALS: BP 148/103; PULSE 79; RESP 18; TEMP 36.1; O2SAT 97
== END ==
LOC: GILAB 12:04
PROVIDERS: PCP Family Medicine; Visit Provider Internal Medicine Pulmonary Disease
DX: Z48.24 Encounter for aftercare following lung transplant (principal); T86.818 Other complications of lung transplant; T86.810 Lung transplant rejection; Y83.8 Other surgical procedures as the cause of abnormal reaction of the patient, or of later complication, without mention of misadventure at the time of the procedure
CPT/HCPCS: 96365; 96366; J1561

== ENCOUNTER 2022-08-11 09:43 | Outpatient (CLI) | payer MEDICARE, SELFPAY ==
[2022-08-11 10:31] LABS: Basophils % 0.1 %; Eosinophils % 0.4 %; Hematocrit 43.3 % (42.0-52.0); Hemoglobin 14.1 g/dL (11.7-16.6); Lymphocytes % 61.3 %; Mean Corpuscular HGB Conc 32.6 g/dL (30.0-36.0); Mean Corpuscular Hemoglobin 28.8 pg (28.0-34.0); Mean Corpuscular Volume 88.4 fl (80-94); Mean Platelet Volume 12.4 fL (7.4-10.4); Monocytes # 0.5 10^3/uL (0.2-0.9); Monocytes % 6.3 %; Neutrophils # 2.56 10^3/uL (1.8-7.7); Neutrophils % 31.3 %; Nucleated Red Blood Cells % 0 %; Platelet Count 134 10^3/cmm (130-400); Red Cell Distribution Width 14.1 % (12.1-15.1); White Blood Count 8.2 10^3/uL (4.0-10.0)
[2022-08-11 10:51] LABS: Alanine Aminotransferase 28 U/L (0-41); Albumin Level 4.2 g/dL (3.5-5.2); Alkaline Phosphatase 82 U/L (40-130); Anion Gap 15.7 (5-19); Aspartate Amino Transferase 17 U/L (0-40); Blood Urea Nitrogen 29 mg/dL (6-20); Calcium 9.9 mg/dL (8.5-10.5); Carbon Dioxide 26 mmol/L (22-29); Chloride 100 mmol/L (98-107); Glomerular Filtration Rate 62.2 mL/min (90-130); Glucose 202 mg/dL (65-115); Osmolality Calculated 298 mOsm/kg (285-295); Potassium 3.7 mmol/L (3.5-5.1); Sodium 138 mmol/L (136-145); Total Bilirubin 0.5 mg/dL (0.15-1.2); Total Protein 7.2 g/dL (6.6-8.7)
[2022-08-17 10:45] LABS: CMV DNA By PCR NOT DETECTED; CMV DNA, QN PCR NOT DETECTED Log IU/mL; SOURCE NOT GIVEN
== END 2022-08-11 09:44 | disposition home or self-care (01) ==
PROVIDERS: PCP Family Medicine; Visit Provider Internal Medicine Pulmonary Disease
DX: Z48.24 Encounter for aftercare following lung transplant (principal)
CPT/HCPCS: 36415; 80053; 80197; 85025; 87496

== ENCOUNTER → 2022-08-17 11:49 | Day surgery (SDC) | payer MEDICARE, SELFPAY ==
[2022-08-17] MEDS: acetaminophen 325 mg Tablet 650 MG PO (12:15)
[2022-08-17] MEDS: diphenhydrAMINE 25 mg Capsule PO (12:15)
[2022-08-17 12:40] VITALS: BP 156/100; PULSE 98; RESP 18; TEMP 36.3; O2SAT 97
== END ==
LOC: GILAB 11:51
PROVIDERS: PCP Family Medicine; Visit Provider Internal Medicine Pulmonary Disease
DX: Z48.24 Encounter for aftercare following lung transplant (principal); T86.818 Other complications of lung transplant; T86.810 Lung transplant rejection; Y83.8 Other surgical procedures as the cause of abnormal reaction of the patient, or of later complication, without mention of misadventure at the time of the procedure
CPT/HCPCS: 96365; 96366; J1561

== ENCOUNTER 2022-08-24 11:01 | Outpatient (CLI) | payer MEDICARE, SELFPAY ==
[2022-08-24 12:19] LABS: Basophils % 0.3 %; Eosinophils % 0.3 %; Hematocrit 43.4 % (42.0-52.0); Lymphocytes # 4.1 10^3/uL (0.8-4.8); Mean Corpuscular HGB Conc 32.3 g/dL (30.0-36.0); Mean Corpuscular Hemoglobin 28.1 pg (28.0-34.0); Mean Platelet Volume 12.6 fL (7.4-10.4); Monocytes # 0.6 10^3/uL (0.2-0.9); Monocytes % 8.2 %; Neutrophils # 2.49 10^3/uL (1.8-7.7); Nucleated Red Blood Cells % 0 %; Platelet Count 108 10^3/cmm (130-400); Red Blood Count 4.99 10^6/uL (4.1-5.3); Red Cell Distribution Width 14.4 % (12.1-15.1); White Blood Count 7.3 10^3/uL (4.0-10.0)
[2022-08-24 12:34] LABS: Alanine Aminotransferase 12 U/L (0-41); Albumin Level 4.2 g/dL (3.5-5.2); Alkaline Phosphatase 45 U/L (40-130); Anion Gap 17.8 (5-19); Aspartate Amino Transferase 16 U/L (0-40); Blood Urea Nitrogen 23 mg/dL (6-20); Calcium 9.4 mg/dL (8.5-10.5); Carbon Dioxide 24 mmol/L (22-29); Chloride 100 mmol/L (98-107); Globulin 2.9 g/dL (1.3-4.6); Glomerular Filtration Rate 76.5 mL/min (90-130); Glucose 182 mg/dL (65-115); Osmolality Calculated 294 mOsm/kg (285-295); Potassium 3.8 mmol/L (3.5-5.1); Sodium 138 mmol/L (136-145); Total Bilirubin 0.4 mg/dL (0.15-1.2); Total Protein 7.1 g/dL (6.6-8.7)
[2022-08-27 15:35] LABS: CMV DNA By PCR NOT DETECTED; CMV DNA, QN PCR NOT DETECTED Log IU/mL; SOURCE BLOOD
== END 2022-08-24 11:02 | disposition home or self-care (01) ==
PROVIDERS: PCP Family Medicine; Visit Provider Internal Medicine Pulmonary Disease
DX: Z48.24 Encounter for aftercare following lung transplant (principal)
CPT/HCPCS: 36415; 80053; 80197; 85025; 87496

== ENCOUNTER → 2022-09-14 11:48 | Day surgery (SDC) | payer MEDICARE, SELFPAY ==
[2022-09-14] MEDS: acetaminophen 325 mg Tablet 650 MG PO (12:30)
[2022-09-14] MEDS: diphenhydrAMINE 25 mg Capsule PO (12:31)
[2022-09-14 12:41] VITALS: BP 145/81; PULSE 72; RESP 18; TEMP 36.2; O2SAT 95
== END ==
PROVIDERS: PCP Family Medicine; Visit Provider Internal Medicine Pulmonary Disease
DX: Z48.24 Encounter for aftercare following lung transplant (principal); T86.818 Other complications of lung transplant; T86.810 Lung transplant rejection; Y83.8 Other surgical procedures as the cause of abnormal reaction of the patient, or of later complication, without mention of misadventure at the time of the procedure
CPT/HCPCS: 96365; J1561

== ENCOUNTER 2022-10-16 11:02 | Emergency (ER) | payer MEDICARE, SELFPAY ==
[2022-10-16] VITALS (54 sets, daily range): BP systolic 120–147; BP diastolic 67–94; PULSE 73–103; RESP 16–28; TEMP 36.7; O2SAT 90–97; BMI 25.0
--- NOTE | 2022-10-16 11:32 | XRR_ITS ---
PROCEDURE INFORMATION: Exam: XR Abdomen Exam date and time: 10/16/2022 12:39 PM Age: 57 years old Clinical indication: Nausea and vomiting; Abdominal pain; Generalized; Additional info: Gastroperesis, abd pain, n/v TECHNIQUE: Imaging protocol: Radiologic exam of the abdomen. Views: Frontal supine view of the abdomen. 1 View. COMPARISON: CT abdomen pelvis w con* [id number] 03/02/2020 9:37 PM FINDINGS: Gastrointestinal tract: Bowel gas pattern is unremarkable. No sign of obstruction. Bones/joints: There is moderate degenerative disease in the lumbar spine. Other findings: 5 mm calcification projects over the tip of the right L2 transverse process. XR/XR abdomen 1V* [id number] IMPRESSION: 1. Normal bowel gas pattern. No sign of obstruction. 2. 5 mm calcification projecting to the right of the L2 transverse process. Possible stone in the renal pelvis or ureter versus vascular calcification or high density bowel contents.
--- NOTE | 2022-10-16 11:32 | XRR_ITS ---
PROCEDURE INFORMATION: Exam: XR Chest Exam date and time: 10/16/2022 12:38 PM Age: 57 years old Clinical indication: Tachypnea TECHNIQUE: Imaging protocol: Radiologic exam of the chest. Views: 1 view. COMPARISON: CR XR chest 1V portable [id number] 05/30/2021 8:36 PM FINDINGS: Lungs: Coarse linear opacity in the lower lungs bilaterally. Ill-defined retrocardiac opacity on the left. Platelike opacity in the left lung base. Pleural spaces: No pneumothorax. The left lateral costophrenic sulcus is blunted. Heart/Mediastinum: Cardiomediastinal contours are unremarkable. Bones/joints: Surgical changes of the right ribs. No acute fracture. XR/XR chest 1V portable [id number] IMPRESSION: 1. Nonspecific opacity in the left lower lung. Probable scarring and atelectasis. Possible pleural effusion. Infection not excluded. Recommend follow-up PA and lateral chest radiographs. 2. Probable scarring in the lower right lung.
--- NOTE | 2022-10-16 12:20 | ECG_ITS ---
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 Measurements Intervals [place] Rate: 77 P: 119 SC: 121 QRS: 48 QRSD: 100 T: 141 QT: 384 QTc: 436 Interpretive Statements SINUS RHYTHM POSSIBLE LEFT ATRIAL ENLARGEMENT [-0.1mV P-WAVE IN V1/V2] INCOMPLETE RIGHT BUNDLE BRANCH BLOCK [90+ ms QRS DURATION, TERMINAL R IN V1/V2, 40+ ms S IN I/aVL/V4/V5/V6] NONSPECIFIC ST & T-WAVE ABNORMALITY Compared to ECG 05/30/2021 21:37:53 Incomplete right bundle-branch block now present T-wave abnormality now present Sinus tachycardia no longer present Short SC interval no longer present ST (T wave) deviation no longer present Electronically Signed On 10-16-2022 13:05:13 CDT by Eric Johansen M.D. [id number]
[2022-10-16 12:28] LABS: Basophils % 0.2 %; Eosinophils % 0.1 %; Hematocrit 44.3 % (42.0-52.0); Hemoglobin 14.3 g/dL (11.7-16.6); Lymphocytes # 2.3 10^3/uL (0.8-4.8); Lymphocytes % 25.9 %; Mean Corpuscular HGB Conc 32.3 g/dL (30.0-36.0); Mean Corpuscular Hemoglobin 28.7 pg (28.0-34.0); Mean Platelet Volume 12.2 fL (7.4-10.4); Monocytes # 0.8 10^3/uL (0.2-0.9); Monocytes % 8.6 %; Neutrophils # 5.64 10^3/uL (1.8-7.7); Neutrophils % 62.4 %; Nucleated Red Blood Cells % 0 %; Platelet Count 107 10^3/cmm (130-400); Red Blood Count 4.98 10^6/uL (4.1-5.3); Red Cell Distribution Width 13.3 % (12.1-15.1)
--- NOTE | 2022-10-16 12:30 | W.ED.ABDPA2 ---
HPI - Abdominal Pain General: Chief Complaint: Abdominal Pain Stated Complaint: abd pain Time Seen by Provider: 10/16/22 11:19 History of Present Illness: Patient presents to the ER with complaints of abdominal pain, patient does have a history of gastroparesis. Patient reports his abdominal pain started approximately 1 month ago and is consistently gotten worse. Patient is on Reglan and Zofran to help with gastroparesis but he says they have not been working. Patient also admits to using medical marijuana which seem to help in the past but not currently. MD elicited complaint: abdominal pain Pertinent past history: other (Gastroparesis) Pain Consistency: constant Location: RLQ and LLQ Severity: moderate Quality: aching Radiation: none Migration to: no migration Exacerbating factors: eating Relieving factors: nothing Context: history of similar episodes Associated Symptoms: Reports anorexia, nausea and vomiting; Denies chills and fever(s) Treatments prior to arrival: other (Reglan and Zofran) Review of Systems General: Reports: 10 or more systems reviewed and unremarkable except in HPI and below Const: Denies: fever(s) or chills Eyes: Denies: change in vision ENMT: Denies: throat pain or odynophagia Card: Denies: chest pain, palpitations or irregular heart rhythm Resp: Denies: dyspnea, productive cough or non-productive cough GI: Reports: abdominal pain, nausea and vomiting : Denies: flank pain Musc: Denies: neck pain or back pain Skin/Breast: Denies: rash or pruritus Neuro: Denies: headache(s), numbness in extremities or weakness in extremities Psych: Denies: anxiety or depression Endo: Denies: polyuria or polydipsia [place]/Lymph: Denies: easy bruising or easy bleeding All/Imm: Denies: urticaria or throat swelling PFSH ED PFSH: Medical History DM type 2 (diabetes mellitus, type 2) Elevated d-dimer History of testicular cancer Lung transplant recipient Myocardial infarction FAB (obstructive sleep apnea) Pulmonary fibrosis RLS (restless legs syndrome) Thrombocytopenia Surgical History History of testicular surgery Hx of lung transplant Family History Other No significant family history Social History Smoking and tobacco status: former smoker Alcohol intake: never Lives independently: Yes Household members: spouse Marital status: Current occupational status: employed Physical Exam Const: COMMON NORMALS: no acute distress, average body habitus, patient oriented x3, no limitations, healthy appearing, alert and well nourished HENMT: COMMON NORMALS: normocephalic, atraumatic, hearing grossly normal bilaterally, external ears normal, Normal external nose present and moist oral mucous membranes HEAD & SCALP: normocephalic and atraumatic NOSE: Normal external nose present EXTERNAL EAR: Yes external ears normal Eye: COMMON NORMALS: Equal, round and reactive pupils present, EOMs intact bilaterally, conjunctivae normal and no scleral icterus CONJUNCTIVA: Yes conjunctivae normal PUPIL: Yes Equal, round and reactive pupils present Neck/C-Spine: COMMON NORMALS: full ROM, no lymphadenopathy, supple, no meningeal signs, no JVD and Thyroid normal THYROID: Thyroid normal Chest: COMMONS NORMALS: normal inspection of the chest and normal palpation of entire chest wall Resp: COMMON NORMALS: normal respiratory effort, No retractions, No use of accessory muscles and clear to auscultation bilaterally AUSCULTATION: clear to auscultation bilaterally Cardio: COMMON NORMALS: no JVD, regular rate, regular rhythm, S1 normal heart sound present and S2 normal heart sound present RATE: regular rate RHYTHM: regular rhythm HEART SOUNDS: S1 normal heart sound present and S2 normal heart sound present GI: COMMON NORMALS: Soft to palpation, No hepatosplenomegaly present and no masses PALPATION: Yes Soft to palpation, Yes Tenderness to palpation present (GI) Details: LLQ and RLQ and Yes No hepatosplenomegaly present : COMMON NORMALS: Yes no CVA tenderness BLADDER/KIDNEY EXAM: Yes no CVA tenderness Back/Pelvis: COMMON NORMALS: no CVA tenderness Extremity: COMMON NORMALS: normal to inspection Neuro: COMMON NORMALS: patient oriented x3, CN's II-XII intact bilaterally, moves all extremities, no focal motor deficits and no sensory deficits noted SENSORIUM/ORIENTATION: Yes alert MENINGEAL SIGNS: Yes no meningeal signs Psych: COMMON NORMALS: mental status grossly normal, Normal thought process present, cooperative, normal affect and speech normal SPEECH: Yes normal speech THOUGHT PROCESS: Normal thought process present Course Vital Signs: Vital signs: Vital Signs Temperature 98.0 F 10/16/22 11:09 Pulse Rate 74 10/16/22 15:12 Respiratory Rate 18 10/16/22 15:12 Blood Pressure 127/72 10/16/22 15:12 Pulse Oximetry 95 10/16/22 15:12 Oxygen Delivery Me thod 10/16/22 15:12 MDM - Abdominal Pain Medical Decision Making Patient presents to the ER with complaints of abdominal pain over the last month has progressively gotten worse. Patient has a history of gastroparesis and has had increased abdominal pain with decreased appetite that is now no longer responsive to his normal Reglan and Zofran. Upon history and physical exam as well as lab work and imaging which were all nonspecific patient was given Zofran, Phenergan, Toradol, and Bentyl which resulted in moderate relief of his discomfort. These findings were discussed with the patient and patient feels comfortable and being discharged home with some prescriptions. Patient is instructed to follow-up with his primary care physician within the next week. Lab Data 10/16/22 12:18 10/16/22 12:18 Labs/Radiology: Radiology Impressions Abdomen X-Ray 10/16/22 11:32 IMPRESSION: 1. Normal bowel gas pattern. No sign of obstruction. 2. 5 mm calcification projecting to the right of the L2 transverse process. Possible stone in the renal pelvis or ureter versus vascular calcification or high density bowel contents. Chest X-Ray 10/16/22 11:32 IMPRESSION: 1. Nonspecific opacity in the left lower lung. Probable scarring and atelectasis. Possible pleural effusion. Infection not excluded. Recommend follow-up PA and lateral chest radiographs. 2. Probable scarring in the lower right lung. Laboratory Results WBC 9.0 10^3/uL (4.0-10.0) 10/16/22 12:18 RBC 4.98 10^6/uL (4.1-5.3) 10/16/22 12:18 Hgb 14.3 g/dL (11.7-16.6) 10/16/22 12:18 Hct 44.3 % (42.0-52.0) 10/16/22 12:18 MCV 89.0 fl (80-94) 10/16/22 12:18 MCH 28.7 pg (28.0-34.0) 10/16/22 12:18 MCHC 32.3 g/dL (30.0-36.0) 10/16/22 12:18 RDW 13.3 % (12.1-15.1) 10/16/22 12:18 Plt Count 107 10^3/cmm (130-400) L 10/16/22 12:18 MPV 12.2 fL (7.4-10.4) H 10/16/22 12:18 Neut % (Auto) 62.4 % 10/16/22 12:18 Lymph % (Auto) 25.9 % 10/16/22 12:18 [place] % (Auto) 8.6 % 10/16/22 12:18 Eos % (Auto) 0.1 % 10/16/22 12:18 Baso % (Auto) 0.2 % 10/16/22 12:18 Neut # (Auto) 5.64 10^3/uL (1.8-7.7) 10/16/22 12:18 Lymph # (Auto) 2.3 10^3/uL (0.8-4.8) 10/16/22 12:18 [place] # (Auto) 0.8 10^3/uL (0.2-0.9) 10/16/22 12:18 Eos # (Auto) 0.0 10^3/uL (0.0-0.8) 10/16/22 12:18 Baso # (Auto) 0.0 10^3/uL (0.0-0.1) 10/16/22 12:18 Nucleated RBC % (auto) 0 % 10/16/22 12:18 Nucleated RBCs # 0.0 /100WBC 10/16/22 12:18 Sodium 135 mmol/L (136-145) L 10/16/22 12:18 Potassium 4.0 mmol/L (3.5-5.1) 10/16/22 12:18 Chloride 98 mmol/L (98-107) 10/16/22 12:18 Carbon Dioxide 20 mmol/L (22-29) L 10/16/22 12:18 Anion Gap 21.0 (5-19) H 10/16/22 12:18 BUN 16 mg/dL (6-20) 10/16/22 12:18 Creatinine 1.0 mg/dL (0.7-1.2) 10/16/22 12:18 GFR Calculation 76.5 mL/min (90-130) L 10/16/22 12:18 Glucose 154 mg/dL (65-115) H 10/16/22 12:18 Calculated Osmolality 284 mOsm/kg (285-295) L 10/16/22 12:18 Calcium 9.5 mg/dL (8.5-10.5) 10/16/22 12:18 Magnesium 1.6 mg/dL (1.7-2.3) L 10/16/22 11:34 Total Bilirubin 0.5 mg/dL (0.15-1.2) 10/16/22 12:18 AST 21 U/L (0-40) 10/16/22 12:18 ALT 13 U/L (0-41) 10/16/22 12:18 Alkaline Phosphatase 44 U/L (40-130) 10/16/22 12:18 Total Protein 7.0 g/dL (6.6-8.7) 10/16/22 12:18 Albumin 3.9 g/dL (3.5-5.2) 10/16/22 12:18 Globulin 3.1 g/dL (1.3-4.6) 10/16/22 12:18 Amylase 72 U/L (28-100) 10/16/22 12:18 Lipase 12 U/L (13-60) L 10/16/22 12:18 Urine Color Yellow (Yellow) 10/16/22 13:44 Urine Appearance Clear (CLEAR) 10/16/22 13:44 Urine pH 7 (5-7) 10/16/22 13:44 Ur Specific [place] 1.010 (1.005-1.030) 10/16/22 13:44 Urine Protein Neg (Negative) 10/16/22 13:44 Urine Glucose (UA) Norm (Normal) 10/16/22 13:44 Urine Ketones 1+ (Negative) H 10/16/22 13:44 Urine Blood Neg (Negative) 10/16/22 13:44 Urine Nitrate Negative (Negative) 10/16/22 13:44 Urine Bilirubin Neg (Negative) 10/16/22 13:44 Urine Urobilinogen Norm mg/dL (Negative) 10/16/22 13:44 Ur Leukocyte Esterase Negative (Negative) 10/16/22 13:44 EKG Data EKG 1: I personally reviewed and interpreted this EKG as follows: EKG interpretation date: 10/16/22 EKG interpretation time: 12:20 Prior EKG tracings: not available for review Interpretation: EKG showed normal sinus rhythm at 77 bpm, OK interval 121, QRS duration of 100, QTc of 416, possible left atrial enlargement, incomplete right bundle branch block, nonspecific ST and T wave abnormalities, Discharge Plan Discharge Patient Disposition: Home Clinical Impression: Abdominal pain, Diabetic gastroparesis Condition: Stable Prescriptions: New dicyclomine 20 mg tablet 20 mg PO QID Qty: 30 0RF promethazine 25 mg tablet 25 mg PO Q6H PRN (Reason: nausea and vomiting) Qty: 20 0RF No Action fluconazole 100 mg tablet 100 mg PO DAILY prednisone 10 mg tablet 10 mg PO DAILY Hold Instructions: Resume on 05/31/21. ondansetron HCl 4 mg tablet 4 mg PO Q6H PRN (Reason: N/V) aspirin [Stacy Low Dose Aspirin] 81 mg Tablet,Delayed Release (Dr/Ec) 81 mg PO DAILY mycophenolate mofetil 500 mg tablet 1,000 mg PO BID insulin lispro 100 unit/mL Solution See Rx Instructions .ROUTE .COMPLEX Rx Instructions: INJECT 10 UNITS SQ 3X/DAY WITH MEAL IN ADDITION TO SLIDING SCALE, BS 140-175=2 UNITS;BS 176-200=3 UNITS; BS 201-250=4 UNITS; BS 251-300=6 UNITS;BS 300 = 8 UNITS tacrolimus 0.5 mg capsule See Rx Instructions .ROUTE .COMPLEX Rx Instructions: 1MG PO QAM AND 0.5MG PO QPM rosuvastatin 10 mg tablet 10 mg PO DAILY insulin glargine [Lantus Solostar U-100 Insulin] 100 unit/mL (3 mL) Insulin Pen 40 unit SUBCUT QAM carvedilol 12.5 mg tablet 12.5 mg PO BID sulfamethoxazole-trimethoprim 800-160 mg tablet 1 tab PO .ON MON,WED,FRI citalopram 20 mg tablet 20 mg PO DAILY pantoprazole 40 mg tablet,delayed release (DR/EC) 40 mg PO DAILY pramipexole 0.125 mg tablet 0.25 mg PO DAILY docusate sodium [Stool Softener] 100 mg Capsule 100 mg PO DAILY zinc 50 mg Tablet 50 mg PO DAILY cholecalciferol (vitamin D3) [Vitamin D3] 25 mcg (1,000 unit) Capsule 25 mcg PO DAILY calcium carbonate-vitamin D3 [Oysco 500/D] 500 mg(1,250mg) -200 unit tablet 1 tab PO BID valerian root 1 tab PO BEDTIME dexamethasone 6 mg tablet 6 mg PO DAILY Qty: 3 0RF gabapentin 600 mg tablet 600 mg PO TID erythromycin 250 mg tablet 250 mg PO TID ropinirole 0.25 mg tablet 0.25 mg PO DAILY acyclovir 200 mg capsule 200 mg PO BID metoclopramide HCl 10 mg tablet 10 mg PO TID melatonin 10 mg Tablet 10 mg PO BEDTIME Discharge Orders: Discharge ED (Routine); Ordered 10/16/22 Ordered By: Quan Hurtado Referrals: Solomon Farrell MD [Primary Care Provider] - 1 week Discharge Diet: Advance as tolerated Discharge Activity: Resume usual activity Patient Instructions: Abdominal Pain (ED), Opioid Safety, Pain Management, Gastroparesis (ED) Coding Level of Care Code ED [employer] Service Technician for [employer] Kelley
[2022-10-16 12:48] LABS: Alanine Aminotransferase 13 U/L (0-41); Albumin Level 3.9 g/dL (3.5-5.2); Alkaline Phosphatase 44 U/L (40-130); Amylase 72 U/L (28-100); Aspartate Amino Transferase 21 U/L (0-40); Blood Urea Nitrogen 16 mg/dL (6-20); Calcium 9.5 mg/dL (8.5-10.5); Carbon Dioxide 20 mmol/L (22-29); Chloride 98 mmol/L (98-107); Globulin 3.1 g/dL (1.3-4.6); Glomerular Filtration Rate 76.5 mL/min (90-130); Glucose 154 mg/dL (65-115); Lipase 12 U/L (13-60); Osmolality Calculated 284 mOsm/kg (285-295); Sodium 135 mmol/L (136-145); Total Bilirubin 0.5 mg/dL (0.15-1.2)
[2022-10-16 12:59] LABS: Magnesium 1.6 mg/dL (1.7-2.3)
[2022-10-16] MEDS: sodium chloride 0.9% 1,000 ML 999 ML IV (13:03)
[2022-10-16] MEDS: ketorolac 30 mg/mL INJ IVP (13:03)
[2022-10-16] MEDS: ondansetron 2 mg/ML SDV 2 mL 8 MG IVP (13:03)
[2022-10-16 13:57] LABS: Add Urine Microscopic? NO; Charge for UA Resulting for Rev
[2022-10-16] MEDS: dicyclomine 20 mg Tablet PO (14:34)
[2022-10-16 14:36] LABS: Bilirubin Urine Neg (Negative); Blood Urine Neg (Negative); Glucose Urine UA Norm (Normal); Ketones Urine 1+ (Negative); Leukocyte Esterase Urine Negative (Negative); Nitrate Urine Negative (Negative); Protein Urine Neg (Negative); Urine Appearance Clear (CLEAR); Urine Color Yellow (Yellow); Urobilinogen Urine Norm (Negative); pH Urine 7 (5-7)
[2022-10-16] MEDS: promethazine 25 mg/mL SDV 1 mL 50 MG IM (15:08)
== END 2022-10-16 17:25 | disposition home or self-care (01) ==
PROVIDERS: Emergency Provider Emergency Medicine; PCP Family Medicine
DX: E11.43 Type 2 diabetes mellitus with diabetic autonomic (poly)neuropathy (principal); K31.84 Gastroparesis; Z79.82 Long term (current) use of aspirin; Z79.4 Long term (current) use of insulin; Z85.47 Personal history of malignant neoplasm of testis; Z94.2 Lung transplant status; I25.2 Old myocardial infarction; Z87.891 Personal history of nicotine dependence
CPT/HCPCS: 71045; 74018; 80053; 81003; 82150; 83690; 83735; 85025; 93005; 96372; 96374; 96375; 99285; J1885; J2405; J2550; J7030

== ENCOUNTER → 2022-10-24 12:51 | Day surgery (SDC) | payer MEDICARE, SELFPAY ==
[2022-10-24] MEDS: acetaminophen 325 mg Tablet 650 MG PO (12:59)
[2022-10-24] MEDS: diphenhydrAMINE 25 mg Capsule PO (13:00)
[2022-10-24 13:30] VITALS: BP 116/76; PULSE 84; RESP 18; TEMP 36.3; O2SAT 93
== END ==
PROVIDERS: PCP Family Medicine; Visit Provider Internal Medicine Pulmonary Disease
DX: Z48.24 Encounter for aftercare following lung transplant (principal); T86.818 Other complications of lung transplant; T86.810 Lung transplant rejection; X58.XXXA Exposure to other specified factors, initial encounter; Y99.9 Unspecified external cause status
CPT/HCPCS: 96365; 96366; J1561

== ENCOUNTER 2022-11-01 14:11 | Outpatient (CLI) | payer MEDICARE, SELFPAY ==
[2022-11-01 15:43] LABS: Iron 77 ug/dL (59-158); Percent Saturation 32.3 % (20-50); Total Iron Binding Capacity 238 mcg/dl; Unsaturated Iron Binding 161 ug/dL (112-347)
[2022-11-01 15:49] LABS: Miscellaneous Test See Scanned Lab Rpt
== END 2022-11-01 14:12 | disposition home or self-care (01) ==
LOC: LAB 14:33
PROVIDERS: PCP Family Medicine; Visit Provider Internal Medicine Pulmonary Disease
DX: G62.9 Polyneuropathy, unspecified (principal); Z48.24 Encounter for aftercare following lung transplant
CPT/HCPCS: 36415; 83540; 83550

== ENCOUNTER → 2022-11-15 12:58 | Day surgery (SDC) | payer MEDICARE, SELFPAY ==
[2022-11-15] MEDS: acetaminophen 325 mg Tablet 650 MG PO (13:05)
[2022-11-15] MEDS: diphenhydrAMINE 25 mg Capsule PO (13:05)
[2022-11-15 13:20] VITALS: BP 132/89; PULSE 104; RESP 18; TEMP 35.9; O2SAT 99
== END ==
PROVIDERS: PCP Family Medicine; Visit Provider Internal Medicine Pulmonary Disease
DX: T86.810 Lung transplant rejection (principal); Z79.899 Other long term (current) drug therapy; Y99.9 Unspecified external cause status
CPT/HCPCS: 96365; J1561

== ENCOUNTER → 2022-11-16 12:40 | Outpatient (BNVA) | payer MEDICARE, SELFPAY | PROVIDERS: PCP Family Medicine; Referring Provider Family Medicine; Visit Provider Internal Medicine | DX: E11.9 Type 2 diabetes mellitus without complications (principal); Z79.4 Long term (current) use of insulin; Z85.47 Personal history of malignant neoplasm of testis; K31.84 Gastroparesis; Z94.2 Lung transplant status | CPT/HCPCS: 99204 ==

== ENCOUNTER → 2022-12-13 11:50 | Day surgery (SDC) | payer MEDICARE, SELFPAY ==
[2022-12-13] MEDS: acetaminophen 325 mg Tablet 650 MG PO (12:01)
[2022-12-13] MEDS: diphenhydrAMINE 25 mg Capsule PO (12:02)
[2022-12-13 12:09] VITALS: BP 169/83; PULSE 99; RESP 18; TEMP 36.2; O2SAT 96
== END ==
PROVIDERS: PCP Family Medicine; Visit Provider Internal Medicine Pulmonary Disease
DX: T86.818 Other complications of lung transplant (principal); Y83.9 Surgical procedure, unspecified as the cause of abnormal reaction of the patient, or of later complication, without mention of misadventure at the time of the procedure; Z94.2 Lung transplant status
CPT/HCPCS: 96365; 96366; J1561

== ENCOUNTER 2022-12-14 12:43 | Outpatient (CLI) | payer MEDICARE, SELFPAY ==
[2022-12-20 15:48] LABS: CMV DNA By PCR NOT DETECTED; CMV DNA, QN PCR NOT DETECTED Log IU/mL; SOURCE WHOLE BLOOD
== END 2022-12-14 12:44 | disposition home or self-care (01) ==
LOC: LAB 12:58
PROVIDERS: PCP Family Medicine; Visit Provider Internal Medicine Pulmonary Disease
DX: Z48.24 Encounter for aftercare following lung transplant (principal)
CPT/HCPCS: 36415; 80197; 87496

== ENCOUNTER 2022-12-30 11:31 | Emergency (ER) | payer MEDICARE, SELFPAY ==
[2022-12-30] VITALS (22 sets, daily range): BP systolic 103–142; BP diastolic 57–95; PULSE 69–97; RESP 13–19; TEMP 36.7; O2SAT 96–100; BMI 25.0
--- NOTE | 2022-12-30 13:09 | ED_ITS ---
HPI - Abdominal Pain General: Chief Complaint: Abdominal Pain Stated Complaint: abd pain Time Seen by Provider: 12/30/22 12:58 History of Present Illness: Mr. Chi is a 57-year-old gentleman with apparent history of diabetes, lung transplant, gastroparesis presented to the emergency department for abdominal pain. He notes longstanding history of intermittent pain likely secondary gastroparesis though over the past 3 months this has been constant. He describes worsening and unrelenting pain mostly in the left upper region of the abdomen. He has nausea and vomiting though essentially stopped eating and has begun to lose weight. Denies blood in stool or vomit. No other specific changes in health, exacerbating, or alleviating factors identified. Onset (ago): month(s) Severity: severe Exacerbating factors: movement Relieving factors: nothing Associated Symptoms: Reports other Review of Systems General: Reports: 10 or more systems reviewed and unremarkable except in HPI and below GI: Reports: other PFSH ED PFSH: Medical History DM type 2 (diabetes mellitus, type 2) Elevated d-dimer History of testicular cancer Lung transplant recipient Myocardial infarction FAB (obstructive sleep apnea) Pulmonary fibrosis RLS (restless legs syndrome) Thrombocytopenia Surgical History History of testicular surgery Hx of lung transplant Family History Other No significant family history Social History Smoking and tobacco status: former smoker Alcohol intake: never Substance/Drug Use: never Lives independently: Yes Household members: spouse Marital status: Current occupational status: employed Physical Exam Const: COMMON NORMALS: alert GENERAL APPEARANCE: cooperative and well developed HENMT: COMMON NORMALS: normocephalic and atraumatic HEAD & SCALP: normocephalic and atraumatic Eye: COMMON NORMALS: conjunctivae normal CONJUNCTIVA: Yes conjunctivae normal SCLERA: sclerae normal Neck/C-Spine: COMMON NORMALS: supple GENERAL: Yes trachea midline Resp: COMMON NORMALS: clear to auscultation bilaterally EFFORT & INSPECTION: Yes able to speak in complete sentences AUSCULTATION: clear to auscultation bilaterally Cardio: COMMON NORMALS: regular rate and regular rhythm RATE: regular rate RHYTHM: regular rhythm GI: COMMON NORMALS: Soft to palpation PALPATION: Yes Soft to palpation, Yes Tenderness to palpation present (GI) Details: LUQ, Yes Guarding due to palpation present (GI) and No Rigid due to palpation Extremity: GENERAL: Yes normal exam except as noted and No edema Neuro: COMMON NORMALS: moves all extremities SENSORIUM/ORIENTATION: Yes alert and No Orientation impaired Psych: COMMON NORMALS: mental status grossly normal and Normal thought process present THOUGHT PROCESS: Normal thought process present Course Vital Signs: Vital signs: Vital Signs Temperature 98.1 F 12/30/22 11:52 Pulse Rate 77 12/30/22 18:00 Respiratory Rate 19 H 12/30/22 18:00 Blood Pressure 129/77 12/30/22 18:00 Pulse Oximetry 98 12/30/22 18:00 Oxygen Delivery Me thod Room Air 12/30/22 13:30 MDM - Abdominal Pain Medical Decision Making 57-year-old gentleman with complex past medical history including double lung transplant presenting due to persistent worsening abdominal pain. Patient is nontoxic though uncomfortable appearing. He has left upper quadrant tenderness palpation without evidence of acute surgical abdomen. Labs notable for no leukocytosis, normal hemoglobin, thrombocytopenia without bleeding noted on clinical exam. Metabolic panel with elevated lactic acid and minimal elevation in anion gap. Lipase is normal. CT abdomen and pelvis demonstrates complex pleural fluid collection suspicious for empyema. This does correlate with the side of patient's pain and may be the cause of referred pain. Patient treated initially with pain control and medications for nausea. Subsequently treated with broad-spectrum antibiotics. Given history of lung transplant and immunosuppression patient requires transfer. Accepted by [facility] for definitive care. Medical Records I reviewed the patient's medical records. Lab Data I reviewed the patient's lab results. 12/30/22 13:15 12/30/22 13:15 Labs/Radiology: Radiology Impressions Abdomen/Pelvis CT 12/30/22 13:47 IMPRESSION: 1. Complex pleural fluid collection in the posteroinferior left thorax consistent with empyema. 2. Incidental findings above. ADDENDUM: 12/30/22 1448 THIS REPORT CONTAINS FINDINGS THAT MAY BE CRITICAL TO PATIENT CARE. The findings were verbally communicated via telephone conference with Antolin Bojorquez at 2:40 PM CDT on 12/30/2022. The findings were acknowledged and understood. Laboratory Results WBC 8.2 10^3/uL (4.0-10.0) 12/30/22 13:15 RBC 5.21 10^6/uL (4.1-5.3) 12/30/22 13:15 Hgb 14.7 g/dL (11.7-16.6) 12/30/22 13:15 Hct 45.8 % (42.0-52.0) 12/30/22 13:15 MCV 87.9 fl (80-94) 12/30/22 13:15 MCH 28.2 pg (28.0-34.0) 12/30/22 13:15 MCHC 32.1 g/dL (30.0-36.0) 12/30/22 13:15 RDW 13.7 % (12.1-15.1) 12/30/22 13:15 Plt Count 108 10^3/cmm (130-400) L 12/30/22 13:15 MPV 11.7 fL (7.4-10.4) H 12/30/22 13:15 Neut % (Auto) 55.3 % 12/30/22 13:15 Lymph % (Auto) 35.7 % 12/30/22 13:15 [place] % (Auto) 7.8 % 12/30/22 13:15 Eos % (Auto) 0.2 % 12/30/22 13:15 Baso % (Auto) 0.1 % 12/30/22 13:15 Neut # (Auto) 4.53 10^3/uL (1.8-7.7) 12/30/22 13:15 Lymph # (Auto) 2.9 10^3/uL (0.8-4.8) 12/30/22 13:15 [place] # (Auto) 0.6 10^3/uL (0.2-0.9) 12/30/22 13:15 Eos # (Auto) 0.0 10^3/uL (0.0-0.8) 12/30/22 13:15 Baso # (Auto) 0.0 10^3/uL (0.0-0.1) 12/30/22 13:15 Nucleated RBC % (auto) 0 % 12/30/22 13:15 Nucleated RBCs # 0.0 /100WBC 12/30/22 13:15 Sodium 142 mmol/L (136-145) 12/30/22 13:15 Potassium 4.1 mmol/L (3.5-5.1) 12/30/22 13:15 Chloride 103 mmol/L (98-107) 12/30/22 13:15 Carbon Dioxide 24 mmol/L (22-29) 12/30/22 13:15 Anion Gap 19.1 (5-19) H 12/30/22 13:15 BUN 19 mg/dL (6-20) 12/30/22 13:15 Creatinine 0.8 mg/dL (0.7-1.2) 12/30/22 13:15 GFR Calculation 98.9 mL/min (90-130) 12/30/22 13:15 Glucose 118 mg/dL (65-115) H 12/30/22 13:15 Calculated Osmolality 297 mOsm/kg (285-295) H 12/30/22 13:15 Lactic Acid 2.4 mmol/L (0.5-2.2) H 12/30/22 13:50 Lactic Acid (Sepsis) 1.6 mmol/L (0.5-2.2) 12/30/22 16:46 Calcium 9.9 mg/dL (8.5-10.5) 12/30/22 13:15 Total Bilirubin 0.6 mg/dL (0.15-1.2) 12/30/22 13:15 AST 20 U/L (0-40) 12/30/22 13:15 ALT 11 U/L (0-41) 12/30/22 13:15 Alkaline Phosphatase 54 U/L (40-130) 12/30/22 13:15 Total Protein 7.6 g/dL (6.6-8.7) 12/30/22 13:15 Albumin 4.3 g/dL (3.5-5.2) 12/30/22 13:15 Globulin 3.3 g/dL (1.3-4.6) 12/30/22 13:15 Lipase 9 U/L (13-60) L 12/30/22 13:15 Nasal Influ A H1 2008 PCR Cancelled 12/30/22 Unknown Adenovirus (PCR) Cancelled 12/30/22 Unknown C. pneumoniae DNA (PCR) Cancelled 12/30/22 Unknown Coronavirus 229E (PCR) Cancelled 12/30/22 Unknown Human Metapneumovir PCR Cancelled 12/30/22 Unknown Influenza A (H1) PCR Cancelled 12/30/22 Unknown Influenza A (H3) PCR Cancelled 12/30/22 Unknown Influenza Type A (PCR) Cancelled 12/30/22 Unknown Influenza Type B (PCR) Cancelled 12/30/22 Unknown M. pneumoniae (PCR) Cancelled 12/30/22 Unknown Parainfluenza 1 (PCR) Cancelled 12/30/22 Unknown Parainfluenza 2 (PCR) Cancelled 12/30/22 Unknown Parainfluenza 3 (PCR) Cancelled 12/30/22 Unknown Parainfluenza 4 (PCR) Cancelled 12/30/22 Unknown RSV Type A (PCR) Cancelled 12/30/22 Unknown RSV Type B (PCR) Cancelled 12/30/22 Unknown Entero/Rhino (PCR) Cancelled 12/30/22 Unknown SARS-CoV-2 (PCR) Cancelled 12/30/22 Unknown Discharge Plan Discharge Patient Disposition: Xfer Short-Term Hosp Clinical Impression: Empyema lung, History of transplantation, lung, Immunosuppressed status Condition: Stable Referrals: Soolmon Farrell MD [Primary Care Provider] - Coding Level of Care Code ED Chief Technical Officer for Jazz Kelley
[2022-12-30 13:24] LABS: Basophils % 0.1 %; Eosinophils % 0.2 %; Hematocrit 45.8 % (42.0-52.0); Hemoglobin 14.7 g/dL (11.7-16.6); Lymphocytes # 2.9 10^3/uL (0.8-4.8); Lymphocytes % 35.7 %; Mean Corpuscular HGB Conc 32.1 g/dL (30.0-36.0); Mean Corpuscular Hemoglobin 28.2 pg (28.0-34.0); Mean Corpuscular Volume 87.9 fl (80-94); Mean Platelet Volume 11.7 fL (7.4-10.4); Monocytes # 0.6 10^3/uL (0.2-0.9); Monocytes % 7.8 %; Neutrophils # 4.53 10^3/uL (1.8-7.7); Neutrophils % 55.3 %; Nucleated Red Blood Cells % 0 %; Platelet Count 108 10^3/cmm (130-400); Red Blood Count 5.21 10^6/uL (4.1-5.3); Red Cell Distribution Width 13.7 % (12.1-15.1); White Blood Count 8.2 10^3/uL (4.0-10.0)
[2022-12-30] MEDS: haloperidol inj 5 mg/mL INJ 1 mL 2 MG IVP (13:27)
[2022-12-30] MEDS: fentaNYL 50 mcg/mL INJ 2mL IVP ×2 (13:27→15:27)
[2022-12-30 13:40] LABS: Alanine Aminotransferase 11 U/L (0-41); Albumin Level 4.3 g/dL (3.5-5.2); Alkaline Phosphatase 54 U/L (40-130); Anion Gap 19.1 (5-19); Aspartate Amino Transferase 20 U/L (0-40); Blood Urea Nitrogen 19 mg/dL (6-20); Calcium 9.9 mg/dL (8.5-10.5); Carbon Dioxide 24 mmol/L (22-29); Chloride 103 mmol/L (98-107); Creatinine Clr Calc Pharmacy 112.6772; Globulin 3.3 g/dL (1.3-4.6); Glomerular Filtration Rate 98.9 mL/min (90-130); Glucose 118 mg/dL (65-115); Lipase 9 U/L (13-60); Osmolality Calculated 297 mOsm/kg (285-295); Potassium 4.1 mmol/L (3.5-5.1); Sodium 142 mmol/L (136-145); Total Bilirubin 0.6 mg/dL (0.15-1.2); Total Protein 7.6 g/dL (6.6-8.7)
--- NOTE | 2022-12-30 13:47 | CTR_ITS ---
PROCEDURE INFORMATION: Exam: CT Abdomen And Pelvis With Contrast Exam date and time: 12/30/2022 2:11 PM Age: 57 years old Clinical indication: Abdominal pain; Localized; Left upper quadrant (luq); Additional info: Abd pain, worsening TECHNIQUE: Imaging protocol: Computed tomography of the abdomen and pelvis with contrast. Radiation optimization: All CT scans at this facility use at least one of these dose optimization techniques: automated exposure control; mA and/or kV adjustment per patient size (includes targeted exams where dose is matched to clinical indication); or iterative reconstruction. Contrast material: OMNI 350; Contrast volume: 100 ml; Contrast route: INTRAVENOUS (IV); REPORTING DATA: Count of CT and Cardiac NM exams in prior 12 months: This patient has received 0 known CTs and 0 known cardiac nuclear medicine studies in the 12 months prior to the current study. COMPARISON: CT abdomen pelvis w con* [id number] 03/02/2020 9:37 PM RADIATION DOSE METRICS: Total DLP (mGy-cm): 616.83 FINDINGS: Lungs: Subsegmental atelectasis and scarring in both lower lobes. Pleural spaces: Moderate sized mixed density left pleural effusion with enhancement of the surrounding visceral and parietal pleura. The pleural fluid collection measures approximately 13 x 13 x 4 cm (roughly 300 cc). Trace right pleural effusion. Liver: The liver is normal. Gallbladder and bile ducts: The gallbladder is normal. There is no biliary dilation. Pancreas: The pancreas is unremarkable. Spleen: The spleen is mildly enlarged. Adrenal glands: The adrenal glands are unremarkable. Kidneys and ureters: Nonobstructive right renal stones are present. There is no hydronephrosis or ureteral dilation. The left kidney and ureter are unremarkable. Stomach and bowel: The stomach is decompressed, preventing meaningful evaluation of wall thickness. The small bowel is nondilated. The colon is unremarkable. Appendix: The appendix is normal. Intraperitoneal space: There is no free air or significant intraperitoneal free fluid. Vasculature: There is mild aortic atherosclerotic disease. The portal, splenic and superior mesenteric veins are patent. Lymph nodes: There is no lymphadenopathy in the retroperitoneum, mesentery, pelvis or inguinal regions. Urinary bladder: The urinary bladder is decompressed, preventing meaningful evaluation of wall thickness. Reproductive: The prostate and seminal vesicles are unremarkable. Bones/joints: There is mild degenerative disease in the lumbar spine. The pelvis and hips are intact. There is moderate degenerative disease of both hips. Soft tissues: The abdominal wall is intact. CT/CT abdomen pelvis w con* [id number] IMPRESSION: 1. Complex pleural fluid collection in the posteroinferior left thorax consistent with empyema. 2. Incidental findings above.
[2022-12-30] MEDS: iohexol 350 mg/mL 500 mL Btl (per mL) IV (14:13)
[2022-12-30 15:20] LABS: Lactic Sepsis W/Reflex 2.4 mmol/L (0.5-2.2)
[2022-12-30] MEDS: piperacillin-tazobactam 4.5 GM in sodium chloride 0.9% (plus) 50 ML IV (15:27)
[2022-12-30 16:03] LABS: Reflex Lactate Order REFLEX LACTIC ORDERD
[2022-12-30] MEDS: vancomycin 2,000 MG/400 ML PIGGYBACK 200 MG IV (16:28)
--- NOTE | 2022-12-30 17:18 | PC.PHAR ---
pts daughter verified pts medications-states the pt didnt take any medications today-notes are made in the pharmacy comments
[2022-12-30 17:22] LABS: Lactic Acid level (Lactate) 1.6 mmol/L (0.5-2.2)
--- NOTE | 2022-12-30 18:11 | PC.NURSE ---
Report called to [facility] to Amalia Garcia RN.
[2022-12-30] MEDS: morphine 4 mg/mL SDV 1 mL IVP (18:47)
== END 2022-12-30 19:16 | disposition short-term general hospital (02) ==
PROVIDERS: Emergency Provider Emergency Medicine; PCP Family Medicine
DX: J86.9 Pyothorax without fistula (principal); D84.821 Immunodeficiency due to drugs; Z87.891 Personal history of nicotine dependence; Z94.2 Lung transplant status
CPT/HCPCS: 36415; 74177; 80053; 83605; 83690; 85025; 87040; 96365; 96366; 96367; 96375; 96376; 99285; J1630; J2270; J2543; J3010; J3372; Q9967

== ENCOUNTER → 2023-01-10 12:51 | Day surgery (SDC) | payer MEDICARE, SELFPAY ==
[2023-01-10 13:15] VITALS: BP 137/81; PULSE 95; RESP 18; TEMP 35.9; O2SAT 95
[2023-01-10] MEDS: acetaminophen 325 mg Tablet 650 MG PO (13:30)
[2023-01-10] MEDS: diphenhydrAMINE 25 mg Capsule PO (13:30)
--- NOTE | 2023-01-10 14:52 | PC.NURSE ---
Pt to GI infusions for IVIG. Pre-medicated with Tylenol and Benadryl as ordered. Pt tolerated well.
== END ==
PROVIDERS: PCP Family Medicine; Visit Provider Internal Medicine Pulmonary Disease
DX: T86.819 Unspecified complication of lung transplant (principal); Y83.8 Other surgical procedures as the cause of abnormal reaction of the patient, or of later complication, without mention of misadventure at the time of the procedure
CPT/HCPCS: 96365; 96366; J1561

== ENCOUNTER → 2023-02-07 12:56 | Day surgery (SDC) | payer MEDICARE, SELFPAY ==
[2023-02-07 13:00] VITALS: BP 153/83; PULSE 78; RESP 18; TEMP 36.6; O2SAT 98
[2023-02-07] MEDS: acetaminophen 325 mg Tablet 650 MG PO (13:03)
[2023-02-07] MEDS: diphenhydrAMINE 25 mg Capsule PO (13:04)
== END ==
PROVIDERS: PCP Family Medicine; Visit Provider Internal Medicine Pulmonary Disease
DX: T86.819 Unspecified complication of lung transplant (principal); Z79.899 Other long term (current) drug therapy; Y99.9 Unspecified external cause status
CPT/HCPCS: 96365; 96366; J1561

== ENCOUNTER → 2023-03-07 12:51 | Day surgery (SDC) | payer MEDICARE, SELFPAY ==
[2023-03-07] MEDS: diphenhydrAMINE 25 mg Capsule PO (12:55)
[2023-03-07] MEDS: acetaminophen 325 mg Tablet 650 MG PO (12:55)
[2023-03-07 14:53] VITALS: BP 133/84; PULSE 71; RESP 18; TEMP 36.4; O2SAT 98
== END ==
PROVIDERS: PCP Family Medicine; Visit Provider Internal Medicine Pulmonary Disease
DX: T86.819 Unspecified complication of lung transplant (principal); Z79.899 Other long term (current) drug therapy; Y71.8 Miscellaneous cardiovascular devices associated with adverse incidents, not elsewhere classified
CPT/HCPCS: 96365; 96366; J1561

== ENCOUNTER → 2023-04-04 13:02 | Day surgery (SDC) | payer MEDICARE, SELFPAY ==
--- OUTSIDE RECORDS SUMMARY | 2023-04-04 13:05 | XMS_ITS | Patient Health Record ---
Author Name Unknown Organization [facility] Address [address] [place] [address] Support Name Relationship Address Phone Brandon Chi Guarantor Unknown [phone] ALLERGIES Allergen (clinical drug ingredient) Drug/Non Drug Allergy documented on EMR Reaction Allergy Type Onset Date Status diphenhydramine Diphenhydramine Unknown Drug Allergy Active hydrocodone Hydrocodone Unknown Drug Allergy Act yas REASON FOR REFERRAL No Information MEDICATIONS Medication SIG (Take, Route, Frequency, Duration) Notes Start Date End Date Status Aspirin Active Vitamin D3 Active Glimepiride 4 MG 1 tablet with breakfast or the first main meal of the day Orally twice daily Not-Taking Metoclopramide HCl A ctive Bactrim DS Active predniSONE Active Acyclovir Active Lantus Active Rosuvastatin Calcium Active Pantoprazole Sodium Active CellCept Active Fluconazole Active Tacrolimus Active HumaLOG Active Pramipexole Dihydrochloride Active CeleXA Active Calcium Carbonate Ac tive Carvedilol Active IMMUNIZATIONS Vaccine Route Administration Date Status Comme nts Boostrix -Tdap IM Intramuscular 05/20/2014 Administered SOCIAL HISTORY Tobacco Use: Social History Observation Description Date Details (start date - stop date) Never Smoker NA - NA Sex Assigned At : Social History Observation Description Sex Assigned At Unknown Smoking Question Answer Notes Smoking Status: nonsmoker PROBLEMS Problem Type ICD Code Onset Dates Problem Status W/U Status Risk SNOMED Code Notes Problem Pre-employment examination (Z02.1) Active confirmed 733966443 Problem Restless leg syndrome (G25.81) Active confirmed 32287612 Problem Hyperlipidemia, unspecified hyperlipidemia type (E78.5) Active confirmed 23213017 Problem Anxiety with depression (F41.8) Active confirmed 283539013 PLAN OF TREATMENT Pending Test Test Name Order Date Urinalysis, Routine 01/22/2018 Urinalysis, Routine 11/23/2020 Glucose Fingerstick (all others) 018 Vision Screening 01/22/2018 Vision Screening 11/23/2020 Hearing Screening 11/23/2020 Hearing Screening 01/22/2018 PFT 01/22/2018 PFT 02/18/2018 DOT DRUG SCREEN 11/23/2020 DOT DRUG SCREEN 01/22/2018 DOT DRUG SCREEN 05/20/2014 RAPID READ DRUG SCREEN 01/22/2018 RAPID READ DRUG SCREEN 11/23/2020 Insurance Providers Payer Name Payer Address Payer Phone Subscriber Number Group Number Insured Name Patient Relationship to Insured Coverage Start Date Coverage End Date [employer] PRE-EMP/RTW fritz [phone] AlonBrandon Self - patient is the insured [place] Pre-Emp[id number] cata @[employer] [phone] AlonBrandon Self - patient is the insured 4 ACBL WC DSCOL [email or web address] AlonBrandon Self - patient is the insured 4 [employer] Accountspay [email or web address] [address] [place] [address] [phone] Brandon Chi Self - patient is the insured MEDICAL (GENERAL) HISTORY Medical History History ICD Code Diabetes testicular cancer--2011 Restless leg syndrome G25.81 Hyperlipidemia, unspecified hyperlipidem ia type E78.5 Gastroesophageal reflux disease, unspeci fied whether esophagitis present K21.9 Hx pulmonary fibrosis reilly's gangrene chemo Hx of [place]-11/23[place]. russ es [place] and states his BP elevated during surgery and they had to stop procedure Right thumb fx, fell-at 13 yrs old Anxiety with depression F41.8 Chronic neck pain, no injury, sees Chiro Left thumb laceration, cut tendons-at 12 yrs old Surgical History Surgery Date(Month/Year) Right thumb at 13 yrs old left orchiectomy 03/2011 incision and drainage abscess reilly g angrene 04/2011 Lung transplant, pulmonary fibrosis 07/2019 Left thumb tendon repair at 12 yrs old Hospitalization History Reason Date(Month/Year) surgeries
[2023-04-04] MEDS: acetaminophen 325 mg Tablet 650 MG PO (13:27)
[2023-04-04] MEDS: diphenhydrAMINE 25 mg Capsule PO (13:27)
[2023-04-04 13:45] VITALS: BP 122/93; PULSE 82; RESP 18; TEMP 36.5; O2SAT 96
== END ==
PROVIDERS: PCP Family Medicine; Visit Provider Internal Medicine Pulmonary Disease
DX: T86.819 Unspecified complication of lung transplant (principal)
CPT/HCPCS: 96365; 96366; J1561

== ENCOUNTER → 2023-05-02 12:55 | Day surgery (SDC) | payer MEDICARE, SELFPAY ==
--- OUTSIDE RECORDS SUMMARY | 2023-05-02 12:58 | XMS_ITS | Patient Health Record ---
Author Name Unknown Organization [facility] Address [facility] [place] [address] Support Name Relationship Address Phone Brandon Chi Guarantor Unknown [phone] ALLERGIES Allergen (clinical drug ingredient) Drug/Non Drug [...] Notes Problem Pre-employment examination (Z02.1) Active confirmed 133469340 Problem Restless leg syndrome (G25.81) Active confirmed 94704542 Problem Hyperlipidemia, unspecified hyperlipidemia type (E78.5) Active confirmed 21707570 Problem Anxiety with depression (F41.8) Active confirmed [id number] PLAN OF TREATMENT Pending Test Test Name Order Date Urinalysis, Routine 11/23/2020 Urinalysis, Routine 01/22/2018 Glucose Fingerstick (all others) 018 Vision Screening 01/22/2018 Vision Screening 11/23/2020 Hearing Screening 11/23/2020 Hearing Screening 01/22/2018 PFT 01/22/2018 PFT 02/18/2018 DOT DRUG SCREEN 05/20/2014 DOT DRUG SCREEN 11/23/2020 DOT DRUG SCREEN 01/22/2018 RAPID READ DRUG SCREEN 01/22/2018 RAPID READ DRUG SCREEN 11/23/2020 Insurance Providers Payer Name Payer Address Payer Phone Subscriber Number Group Number Insured Name Patient Relationship to Insured Coverage Start Date Coverage End Date [employer] PRE-EMP/RTW fritz [phone] AlonBrandon Self - patient is the insured AC [place] Pre-Emp/RTW [id number] cata @[phone] AlonBrandon Self - patient is the insured 4 ACBL WC DSCOL [email or web address] AlonBrandon Self - patient is the insured 4 [id number] Accountspay [address] [place] [address] Brandon Chi Self - patient is the insured MEDICAL (GENERAL) HISTORY Medical History History ICD Code Diabetes testicular cancer--2011 Restless leg syndrome G25.81 Hyperlipidemia, unspecified hyperlipidem ia type E78.5 Gastroesophageal reflux disease, unspeci fied whether esophagitis present K21.9 Hx pulmonary fibrosis reilly's gangrene chemo Hx of [place]-11/23/[address] and states his BP elevated during surgery [...]
[2023-05-02] MEDS: acetaminophen 325 mg Tablet 650 MG PO (13:00)
[2023-05-02] MEDS: diphenhydrAMINE 25 mg Capsule PO (13:01)
[2023-05-02 13:17] VITALS: BP 127/77; PULSE 78; RESP 18; TEMP 36.2; O2SAT 97
== END ==
PROVIDERS: PCP Family Medicine; Visit Provider Internal Medicine Pulmonary Disease
DX: T86.819 Unspecified complication of lung transplant (principal)
CPT/HCPCS: 96365; 96366; J1561

== ENCOUNTER 2023-05-06 13:38 | Emergency (ER) | payer MEDICARE, SELFPAY ==
[2023-05-06 13:52] VITALS: BP 151/95; PULSE 101; RESP 18; TEMP 36.9; O2SAT 97; BMI 25.7
[2023-05-06 14:58] LABS: Basophils % 0.2 %; Hematocrit 47.4 % (37-53); Lymphocytes # 1.5 10^3/uL (0.8-4.8); Lymphocytes % 18.3 %; Mean Corpuscular HGB Conc 33.3 g/dL (30-55); Mean Corpuscular Hemoglobin 29.1 pg (27-33); Mean Corpuscular Volume 87.3 fl (82-101); Mean Platelet Volume 11.4 fL (7.4-10.4); Monocytes # 0.8 10^3/uL (0.2-0.9); Monocytes % 9.4 %; Neutrophils # 5.77 10^3/uL (1.8-7.7); Neutrophils % 71.7 %; Nucleated Red Blood Cells % 0 %; Platelet Count 163 10^3/cmm (157-399); Red Blood Count 5.43 10^6/uL (3.85-5.65); Red Cell Distribution Width 13.6 % (12.1-15.1); White Blood Count 8.05 10^3/uL (3.29-11.43)
[2023-05-06 15:21] VITALS: BP 153/110; PULSE 95; RESP 20; O2SAT 94
[2023-05-06 15:24] LABS: Alanine Aminotransferase 9 U/L (0-41); Albumin Level 3.9 g/dL (3.5-5.2); Alkaline Phosphatase 61 U/L (40-130); Anion Gap 20.9 (5-19); Aspartate Amino Transferase 14 U/L (0-40); Blood Urea Nitrogen 27 mg/dL (6-20); Calcium 10.3 mg/dL (8.5-10.5); Carbon Dioxide 20 mmol/L (22-29); Chloride 92 mmol/L (98-107); Globulin 4.4 g/dL (1.3-4.6); Glomerular Filtration Rate 56.5 mL/min (90-130); Glucose 295 mg/dL (65-115); Osmolality Calculated 282 mOsm/kg (285-295); Potassium 4.9 mmol/L (3.5-5.1); Sodium 128 mmol/L (136-145); Total Bilirubin 0.6 mg/dL (0.15-1.2); Total Protein 8.3 g/dL (6.6-8.7)
--- NOTE | 2023-05-06 15:46 | ED_ITS ---
HPI - Abdominal Pain General: Chief Complaint: Abdominal Pain Stated Complaint: Lower Rt Abd Pain Time Seen by Provider: 05/06/23 15:01 Source: patient Mode of arrival: ambulatory History of Present Illness: 57-year-old male presents emergency room from the urgent care clinic with complaints of abdominal pain. Had respiratory symptoms as well and tested positive for COVID-19. He denies any dysuria urgency or frequency or hematuria earlier today pain located to the right lower quadrant states having no pain at all at this time. No vomiting he has had quite a bit of diarrhea for the last couple of days he not been able to eat or drink due to generally not feeling well. MD elicited complaint: abdominal pain Onset (ago): day(s) Pain Consistency: intermittent and now resolved Quality: cramping Exacerbating factors: nothing Relieving factors: nothing Associated Symptoms: Reports no associated symptoms, diarrhea and nausea; Denies anorexia, belching, bloating, change in bowel habits, change in stool character, chills, coffee ground emesis, constipation, GI cramping, dyspepsia, dysuria, excessive flatus, fever(s), heartburn, hematochezia, hematuria, hematemesis, fecal incontinence, loose stools, melena, poor appetite, syncope, vomiting and other Review of Systems Const: Denies: fever(s) or chills Card: Denies: chest pain or syncope Resp: Denies: dyspnea GI: Reports: abdominal pain, nausea and diarrhea; Denies: vomiting, hematemesis, coffee ground emesis, heartburn, constipation, bloating, GI cramping, belching, excessive flatus, fecal incontinence, change in bowel habits, change in stool character, hematochezia, melena or other : Denies: dysuria, urinary frequency, urinary urgency or hematuria Musc: Denies: neck pain or back pain Skin/Breast: Denies: rash PFSH ED PFSH: Medical History DM type 2 (diabetes mellitus, type 2) Elevated d-dimer History of testicular cancer Lung transplant recipient Myocardial infarction FAB (obstructive sleep apnea) Pulmonary fibrosis RLS (restless legs syndrome) Thrombocytopenia Surgical History History of testicular surgery Hx of lung transplant Family History Other No significant family history Social History Smoking and tobacco/nicotine status: former use of tobacco/nicotine Alcohol intake: never Substance/Drug Use: never Lives independently: Yes Household members: spouse Marital status: Current occupational status: employed Physical Exam Const: GENERAL APPEARANCE: cooperative and comfortable ORIENTATION/CONSCIOUSNESS: Yes awake, Yes oriented to person, Yes oriented to place and Yes oriented to time HENMT: COMMON NORMALS: normocephalic, atraumatic and hearing grossly normal bilaterally HEAD & SCALP: normocephalic and atraumatic Resp: COMMON NORMALS: normal respiratory effort, No retractions, No use of accessory muscles and clear to auscultation bilaterally AUSCULTATION: clear to auscultation bilaterally Cardio: COMMON NORMALS: regular rate, regular rhythm and No murmurs present (Cardio) RATE: regular rate RHYTHM: regular rhythm GI: COMMON NORMALS: Soft to palpation and No hepatosplenomegaly present AUSCULTATION: Yes normoactive bowel sounds PALPATION: Yes Soft to palpation, No Tenderness to palpation present (GI), No Guarding due to palpation present (GI) and Yes No hepatosplenomegaly present Extremity: COMMON NORMALS: normal to inspection, capillary refill normal, no clubbing, cyanosis or edema, no calf tenderness and no pedal edema Neuro: SENSORIUM/ORIENTATION: Yes oriented to person, Yes oriented to place and Yes oriented to time Skin: COMMON NORMALS: no rashes or lesions noted GENERAL SKIN EXAM: no rashes or lesions noted Course Vital Signs: Vital signs: Vital Signs Temperature 98.4 F 05/06/23 13:52 Pulse Rate 95 05/06/23 16:35 Respiratory Rate 20 H 05/06/23 16:35 Blood Pressure 153/110 05/06/23 16:35 Pulse Oximetry 94 05/06/23 16:35 Oxygen Delivery Me thod Room Air 05/06/23 15:21 MDM - Abdominal Pain Medical Decision Making Exam unremarkable at this time no leukocytosis. Patient still has his COVID- like symptoms no other findings. Based on his current exam and his white count being normal do not believe he needs a CT at this time recheck if he has further problems or recurrence or worsening of symptoms Medical Records I reviewed the patient's medical records. Lab Data I reviewed the patient's lab results. 05/06/23 14:45 05/06/23 14:45 Labs/Radiology: Laboratory Results WBC 8.05 10^3/uL (3.29-11.43) 05/06/23 14:45 RBC 5.43 10^6/uL (3.85-5.65) 05/06/23 14:45 Hgb 15.80 g/dL (11.27-16.99) 05/06/23 14:45 Hct 47.4 % (37-53) 05/06/23 14:45 MCV 87.3 fl (82-101) 05/06/23 14:45 MCH 29.1 pg (27-33) 05/06/23 14:45 MCHC 33.3 g/dL (30-55) 05/06/23 14:45 RDW 13.6 % (12.1-15.1) 05/06/23 14:45 Plt Count 163 10^3/cmm (157-399) 05/06/23 14:45 MPV 11.4 fL (7.4-10.4) H 05/06/23 14:45 Neut % (Auto) 71.7 % 05/06/23 14:45 Lymph % (Auto) 18.3 % 05/06/23 14:45 Lynn % (Auto) 9.4 % 05/06/23 14:45 Eos % (Auto) 0.0 % 05/06/23 14:45 Baso % (Auto) 0.2 % 05/06/23 14:45 Neut # (Auto) 5.77 10^3/uL (1.8-7.7) 05/06/23 14:45 Lymph # (Auto) 1.5 10^3/uL (0.8-4.8) 05/06/23 14:45 Lynn # (Auto) 0.8 10^3/uL (0.2-0.9) 05/06/23 14:45 Eos # (Auto) 0.0 10^3/uL (0.0-0.8) 05/06/23 14:45 Baso # (Auto) 0.0 10^3/uL (0.0-0.1) 05/06/23 14:45 Nucleated RBC % (auto) 0 % 05/06/23 14:45 Nucleated RBCs # 0.0 /100WBC 05/06/23 14:45 Sodium 128 mmol/L (136-145) L 05/06/23 14:45 Potassium 4.9 mmol/L (3.5-5.1) 05/06/23 14:45 Chloride 92 mmol/L (98-107) L 05/06/23 14:45 Carbon Dioxide 20 mmol/L (22-29) L 05/06/23 14:45 Anion Gap 20.9 (5-19) H 05/06/23 14:45 BUN 27 mg/dL (6-20) H 05/06/23 14:45 Creatinine 1.3 mg/dL (0.7-1.2) H 05/06/23 14:45 GFR Calculation 56.5 mL/min (90-130) L 05/06/23 14:45 Glucose 295 mg/dL (65-115) H 05/06/23 14:45 Calculated Osmolality 282 mOsm/kg (285-295) L 05/06/23 14:45 Calcium 10.3 mg/dL (8.5-10.5) 05/06/23 14:45 Total Bilirubin 0.6 mg/dL (0.15-1.2) 05/06/23 14:45 AST 14 U/L (0-40) 05/06/23 14:45 ALT 9 U/L (0-41) 05/06/23 14:45 Alkaline Phosphatase 61 U/L (40-130) 05/06/23 14:45 Total Protein 8.3 g/dL (6.6-8.7) 05/06/23 14:45 Albumin 3.9 g/dL (3.5-5.2) 05/06/23 14:45 Globulin 4.4 g/dL (1.3-4.6) 05/06/23 14:45 No radiology studies performed this visit Discharge Plan Discharge Patient Disposition: Home Clinical Impression: COVID-19 Condition: Stable Prescriptions: New ondansetron HCl 4 mg tablet 4 mg PO Q6H PRN (Reason: nausea and vomiting) Qty: 20 0RF No Action prednisone 10 mg tablet 10 mg PO DAILY Hold Instructions: Resume on 05/31/21. aspirin [Stacy Low Dose Aspirin] 81 mg Tablet,Delayed Release (Dr/Ec) 81 mg PO DAILY insulin lispro 100 unit/mL Solution See Rx Instructions .ROUTE .COMPLEX Rx Instructions: INJECT 10 UNITS SQ 3X/DAY WITH MEAL IN ADDITION TO SLIDING SCALE, BS 140- 175=2 UNITS;BS 176-200=3 UNITS; BS 201-250=4 UNITS; BS 251-300=6 UNITS;BS 300 = 8 UNITS tacrolimus 0.5 mg capsule See Rx Instructions .ROUTE .COMPLEX Rx Instructions: 4 caps (2mg) po qam and 3 cap(1.5mg) at bedtime rosuvastatin 10 mg tablet 10 mg PO DAILY sulfamethoxazole-trimethoprim 800-160 mg tablet 1 tab PO .ON MON,WED,FRI pantoprazole 40 mg tablet,delayed release (DR/EC) 40 mg PO DAILY cholecalciferol (vitamin D3) [Vitamin D3] 25 mcg (1,000 unit) Capsule 25 mcg PO DAILY calcium carbonate-vitamin D3 [Oysco 500/D] 500 mg(1,250mg) -200 unit tablet 1 tab PO BID gabapentin 600 mg tablet 600 mg PO TID ropinirole 0.25 mg tablet 0.25 mg PO BEDTIME acyclovir 200 mg capsule 200 mg PO BID melatonin 10 mg Tablet 10 mg PO BEDTIME promethazine 25 mg tablet 25 mg PO Q6H PRN (Reason: nausea and vomiting) Qty: 20 0RF acetaminophen [Tylenol] 325 mg Tablet 650 mg PO Q4H PRN (Reason: Pain) Immune Globulin Infusion See Rx Instructions .ROUTE .COMPLEX Rx Instructions: as directed every 30 days insulin glargine [Lantus Solostar U-100 Insulin] 100 unit/mL (3 mL) insulin pen 15 unit SUBCUT QAM prochlorperazine maleate 5 mg tablet 5 mg PO TID azathioprine 50 mg tablet 50 mg PO TID mirtazapine 15 mg tablet 15 mg PO DAILY Discharge Orders: Discharge ED (Routine); Ordered 05/06/23 Ordered By: Yahir Tolentino Referrals: Solomon Farrell MD [Primary Care Provider] - Discharge Diet: Usual diet Discharge Activity: Resume usual activity Patient Instructions: COVID-19 (Coronavirus Disease 2019) (ED), Opioid Safety, Pain Management Coding Level of Care Code ED Disaster Recovery Specialist for Jazz Kelley
[2023-05-06] MEDS: ondansetron 2 mg/ML SDV 2 mL 4 MG IVP (16:08)
[2023-05-06] MEDS: sodium chloride 0.9% 1,000 ML 999 ML IV (16:08)
[2023-05-06 16:35] VITALS: BP 153/110; PULSE 95; RESP 20; O2SAT 94
== END 2023-05-06 16:36 | disposition home or self-care (01) ==
PROVIDERS: Emergency Medicine; Emergency Provider Family Medicine; PCP Family Medicine
DX: U07.1 COVID-19 (principal); Z79.82 Long term (current) use of aspirin; Z79.4 Long term (current) use of insulin; Z87.891 Personal history of nicotine dependence; E11.9 Type 2 diabetes mellitus without complications; Z85.47 Personal history of malignant neoplasm of testis; Z94.2 Lung transplant status; I25.2 Old myocardial infarction
CPT/HCPCS: 36415; 80053; 85025; 87400; 87426; 96374; 99284; J2405; J7030

== ENCOUNTER 2023-05-30 13:56 | Oncology outpatient (recurring) (ONCR) | payer MEDICARE, SELFPAY ==
[2023-05-30] VITALS (7 sets, daily range): BP systolic 96–126; BP diastolic 57–74; PULSE 60–79; RESP 16–17; TEMP 36.4–36.9; O2SAT 94–96
--- OUTSIDE RECORDS SUMMARY | 2023-05-30 14:00 | XMS_ITS | Patient Health Record ---
Author Name Unknown Organization [facility] Address [address] [place] [address] Support Name Relationship Address Phone Brandon Chi Guarantor Unknown [phone] ALLERGIES Allergen (clinical drug ingredient) Drug/Non Drug [...] Notes Problem Pre-employment examination (Z02.1) Active confirmed 994599436 Problem Restless leg syndrome (G25.81) Active confirmed 91077316 Problem Hyperlipidemia, unspecified hyperlipidemia type (E78.5) Active confirmed 39574270 Problem Anxiety with depression (F41.8) Active confirmed 729456295 PLAN OF TREATMENT Pending Test Test Name [...] Coverage Start Date Coverage End Date [employer] PRE-EMP/RTW [employer]ankity [phone] AlonBrandon Self - patient is the insured AC [place] Pre-Emp/RTW [id number] cata @[employer] [phone] AlonBrandon Self - patient is the insured 4 ACBL WC DSCOL [email or web address] Self - patient is the insured 4 [employer] Accountspay [email or web address] [address] [place] [address] [phone] Brandon Chi Self - patient is the insured MEDICAL (GENERAL) HISTORY Medical History History ICD Code Diabetes testicular cancer--2011 Restless leg syndrome G25.81 Hyperlipidemia, unspecified hyperlipidem ia type E78.5 Gastroesophageal reflux disease, unspeci fied whether esophagitis present K21.9 Hx pulmonary fibrosis reilly's gangrene chemo Hx of [place]-11/23/2020 pt. russ es [place] and states his BP elevated during surgery [...]
[2023-05-30] MEDS: sodium chloride 0.9% 250 ML 75 ML IV (14:24)
[2023-05-30] MEDS: acetaminophen 325 mg Tablet 650 MG PO (14:24)
[2023-05-30] MEDS: immune globulin (Privigen ONC) 40 GM in empty flexible container 1 EACH IV (14:50)
== END 2023-06-14 23:59 | disposition home or self-care (01) ==
LOC: ONCMED 13:58
PROVIDERS: PCP Family Medicine; Visit Provider Internal Medicine Pulmonary Disease
DX: D69.6 Thrombocytopenia, unspecified (principal); T86.819 Unspecified complication of lung transplant
CPT/HCPCS: 96365; 96366; J1459; J7050

== ENCOUNTER 2023-06-06 09:06 | Outpatient (CLI) | payer MEDICARE, SELFPAY ==
[2023-06-06 09:47] LABS: Alanine Aminotransferase 14 U/L (0-41); Alkaline Phosphatase 43 U/L (40-130); Anion Gap 17.5 (5-19); Aspartate Amino Transferase 19 U/L (0-40); Blood Urea Nitrogen 15 mg/dL (6-20); Calcium 10.2 mg/dL (8.5-10.5); Carbon Dioxide 27 mmol/L (22-29); Chloride 100 mmol/L (98-107); Chol HDL Ratio 3.25 mg/dL (1.0-5.00); Cholesterol 198 mg/dL (0-200); Globulin 3.9 g/dL (1.3-4.6); Glomerular Filtration Rate 86.4 mL/min (90-130); Glucose 142 mg/dL (65-115); HDL Cholesterol 61 mg/dL (60-100); LDL Cholesterol Calculated 92 mg/dL (50-129); LDL HDL Ratio 1.51 RATIO (0.00-3.22); Osmolality Calculated 293 mOsm/kg (285-295); Potassium 4.5 mmol/L (3.5-5.1); Sodium 140 mmol/L (136-145); Total Bilirubin 0.4 mg/dL (0.15-1.2); Total Protein 7.9 g/dL (6.6-8.7); Triglycerides 224 mg/dL (0-150)
[2023-06-06 10:03] LABS: Creatinine Urine, Random 261 mg/dL (39-259); Microalbumin Random Urine 11 ug/dL (0-20)
[2023-06-06 10:04] LABS: Microalbum Creatinine Ratio Ur 42 mg/dL (0-20)
[2023-06-06 10:11] LABS: Estmated Average Glucose 174; Hemoglobin A1C 7.7 % (4.0-6.0)
== END 2023-06-06 09:07 | disposition home or self-care (01) ==
PROVIDERS: PCP Family Medicine; Visit Provider Internal Medicine
DX: E11.9 Type 2 diabetes mellitus without complications (principal); Z79.899 Other long term (current) drug therapy
CPT/HCPCS: 36415; 80053; 80061; 82044; 83036

== ENCOUNTER 2023-06-11 13:53 | Outpatient (CLI) | payer MEDICARE, SELFPAY ==
[2023-06-11 16:35] LABS: Adenovirus Not Detected (NOT DETECT); Chlamydia Pneumoniae Not Detected (NOT DETECT); Coronavirus 229E,HKU1,NL63,OC4 Not Detected (NOT DETECT); Human Metapneumovirus Not Detected (NOT DETECT); Human Rhinovirus/Enterovirus Not Detected (NOT DETECT); Influenza A Not Detected (NOT DETECT); Influenza A H1 Not Detected (NOT DETECT); Influenza A H1-2009 Not Detected (NOT DETECT); Influenza A H3 Not Detected (NOT DETECT); Influenza B Not Detected (NOT DETECT); Mycoplasma Pneumoniae Not Detected (NOT DETECT); Parainfluenza Virus Type 1 Not Detected (NOT DETECT); Parainfluenza Virus Type 2 Not Detected (NOT DETECT); Parainfluenza Virus Type 3 Not Detected (NOT DETECT); Parainfluenza Virus Type 4 Not Detected (NOT DETECT); Respiratory Syncytial Virus A Not Detected (NOT DETECT); Respiratory Syncytial Virus B Not Detected (NOT DETECT); SARS-COV-2 Not Detected (NOT DETECT)
== END 2023-06-11 13:54 | disposition home or self-care (01) ==
LOC: LAB 13:57
PROVIDERS: PCP Family Medicine; Visit Provider Internal Medicine Pulmonary Disease
DX: Z48.24 Encounter for aftercare following lung transplant (principal)
CPT/HCPCS: 87486; 87581; 87633

== ENCOUNTER 2023-07-14 14:41 | Emergency (ER) | payer MEDICARE, SELFPAY ==
--- NOTE | 2023-07-14 14:49 | XRR_ITS ---
PROCEDURE INFORMATION: Exam: XR Chest Exam date and time: 07/14/2023 3:34 PM Age: 57 years old Clinical indication: Dyspnea TECHNIQUE: Imaging protocol: Radiologic exam of the chest. Views: 1 view. COMPARISON: CR XR chest 1V portable [id number] 10/16/2022 12:38 PM FINDINGS: Lungs: Lung volumes are mildly decreased. There is some blunting of the costophrenic angles and indistinct interstitial opacities peripherally at the lung bases likely secondary to small effusions and bibasilar interstitial infiltrates that have developed from previous exam. Upper lung ruiz are relatively clear. Pleural spaces: See Lungs finding. Heart/Mediastinum: Cardiac silhouette is not significantly enlarged. Bones/joints: Evidence of prior median sternotomy. No acute bony abnormalities. XR/XR chest 1V portable [id number] IMPRESSION: Interval development of mild bibasilar interstitial infiltrates with small accompanying pleural effusions.
[2023-07-14 14:50] LABS: Glucose Point of Care 239 mg/dL (70-110)
[2023-07-14 14:53] VITALS: BP 150/111; PULSE 109; RESP 34; O2SAT 96
[2023-07-14 15:04] LABS: Basophils % 0.4 %; Eosinophils % 0.2 %; Hematocrit 47.5 % (37-53); Lymphocytes # 4.5 10^3/uL (0.8-4.8); Lymphocytes % 48.6 %; Mean Corpuscular HGB Conc 34.1 g/dL (30-55); Mean Corpuscular Hemoglobin 27.8 pg (27-33); Mean Corpuscular Volume 81.5 fl (82-101); Mean Platelet Volume 11.4 fL (7.4-10.4); Monocytes # 0.9 10^3/uL (0.2-0.9); Neutrophils # 3.69 10^3/uL (1.8-7.7); Neutrophils % 40.1 %; Nucleated Red Blood Cells % 0 %; Platelet Count 134 10^3/cmm (157-399); Red Blood Count 5.83 10^6/uL (3.85-5.65); Red Cell Distribution Width 14.3 % (12.1-15.1)
[2023-07-14 15:10] LABS: Ketone (Acetest) Serum Negative (Negative)
[2023-07-14 15:22] LABS: Troponin(5th) Baseline 33 ng/L (0-15)
[2023-07-14 15:25] LABS: Lactic Sepsis W/Reflex 4.3 mmol/L (0.5-2.2)
[2023-07-14 15:26] LABS: Procalcitonin 0.54 ng/mL (0-0.5); Thyroid Stimulating Hormone 4.74 uIU/mL (0.27-4.20)
--- NOTE | 2023-07-14 15:28 | ED_ITS ---
HPI - SOB/Dyspnea 2 General: Chief Complaint: Shortness of Breath/Dyspnea Stated Complaint: shortness of breath Time Seen by Provider: 07/14/23 14:49 History of Present Illness: HPI Narrative: Patient presents to the ER with chief complaints of shortness of breath and fatigue. Patient gets very short of breath very fatigued with minimal exertion and his heart rate climbs fast. While patient is laying still his breathing is normal and heart rate normalizes. Patient's O2 sat on room air is 96%. 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 Patient is never felt like this before. He says has been going downhill for a long time. Patient states he has been having intermittent fevers off and on but has not checked an actual temperature. Patient is on multi rejection type prophylactic medicine for his lungs. Patient is an insulin-dependent diabetic as well. Review of Systems 2 General: Reports: 10 or more systems reviewed and unremarkable except in HPI and below PFSH ED 2 PFSH: Medical History Thrombocytopenia Elevated d-dimer FBA (obstructive sleep apnea) RLS (restless legs syndrome) Lung transplant recipient History of testicular cancer DM type 2 (diabetes mellitus, type 2) Myocardial infarction Pulmonary fibrosis Surgical History Hx of lung transplant History of testicular surgery Family History Other No significant family history Social History Smoking and tobacco/nicotine status: former use of tobacco/nicotine Alcohol intake: never Substance/Drug Use: never Lives independently: Yes Household members: spouse Marital status: Current occupational status: employed Physical Exam 2 Const: COMMON NORMALS: no acute distress, average body habitus, patient oriented x3, no limitations, healthy appearing, alert and well nourished HENMT: COMMON NORMALS: normocephalic, atraumatic, hearing grossly normal bilaterally, external ears normal, Normal external nose present, moist oral mucous membranes and oropharynx normal HEAD & SCALP: normocephalic and atraumatic NOSE: Normal external nose present EXTERNAL EAR: Yes external ears normal Eye: COMMON NORMALS: Equal, round and reactive pupils present, EOMs intact bilaterally, conjunctivae normal and no scleral icterus CONJUNCTIVA: Yes conjunctivae normal PUPIL: Yes Equal, round and reactive pupils present Neck/C-Spine: COMMON NORMALS: full ROM, no lymphadenopathy, supple, no meningeal signs, no JVD and Thyroid normal THYROID: Thyroid normal Chest: COMMONS NORMALS: normal inspection of the chest and normal palpation of entire chest wall Resp: COMMON NORMALS: normal respiratory effort (Mild tachypnea), No retractions, No use of accessory muscles and clear to auscultation bilaterally AUSCULTATION: clear to auscultation bilaterally Cardio: COMMON NORMALS: no JVD, regular rhythm, S1 normal heart sound present, S2 normal heart sound present, No gallops present (Cardio), No clicks present (Cardio), No murmurs present (Cardio) and No rub (Cardio); negative for regular rate (Mild tachycardia) RATE: abnormal rate (Mild tachycardia) RHYTHM: regular rhythm HEART SOUNDS: S1 normal heart sound present and S2 normal heart sound present GI: COMMON NORMALS: Normal to inspection, nondistended, normoactive bowel sounds present, Soft to palpation, non-tender, No hepatosplenomegaly present and no masses PALPATION: Yes Soft to palpation and Yes No hepatosplenomegaly present Extremity: NARRATIVE EXTREMITY EXAM: Negative bilateral lower extremity edema Neuro: COMMON NORMALS: patient oriented x3 SENSORIUM/ORIENTATION: Yes alert MENINGEAL SIGNS: Yes no meningeal signs Course 2 Vital Signs: Vital signs: Vital Signs Pulse Rate 93 07/14/23 18:00 Respiratory Rate 16 07/14/23 18:00 Blood Pressure 108/85 07/14/23 18:00 Pulse Oximetry 97 07/14/23 18:00 Oxygen Delivery Me thod Room Air 07/14/23 18:00 MDM - SOB/Dyspnea Medical Decision Making Patient came to the ER not feeling good. Lab work was obtained which revealed elevated D-dimer 1.34, elevated lactic acid, chest x-ray showed possible interval development of interstitial infiltrate, chest CTA was obtained which was negative for PE and pneumonia. 4 swab was obtained which was positive for COVID. But upon talking to the patient he had COVID approximately 6 weeks ago. Patient was given 2 L of normal saline and his lactic acid improved. Patient states he is feeling much better patient does not want to stay in the hospital. Discussed the risks risks of going home with the patient with unknown real cause of him not feeling well and he has high risk of his bilateral lung transplant and immunosuppressants. As well as dehydration due to the 2 L and not producing any urine. Patient still wanted to go home. Patient be discharged home Differential Diagnosis Unlikely acute exacerbation of chronic obstructive airways disease, congestive heart failure, community acquired pneumonia, asthma with exacerbation or pulmonary embolism Medical Records I reviewed the patient's medical records. Lab Data I reviewed the patient's lab results. 07/14/23 14:25 07/14/23 14:25 Labs/Radiology: Radiology Impressions Chest X-Ray 07/14/23 14:49 IMPRESSION: Interval development of mild bibasilar interstitial infiltrates with small accompanying pleural effusions. Chest CTA 07/14/23 16:02 IMPRESSION: 1. Negative CT angiogram of the chest. No evidence of acute pulmonary embolism. 2. Progressive lung changes mid-lower lung zones as discussed above. Laboratory Results WBC 9.20 10^3/uL (3.29-11.43) 07/14/23 14:25 RBC 5.83 10^6/uL (3.85-5.65) H 07/14/23 14:25 Hgb 16.20 g/dL (11.27-16.99) 07/14/23 14:25 Hct 47.5 % (37-53) 07/14/23 14:25 MCV 81.5 fl (82-101) L 07/14/23 14:25 MCH 27.8 pg (27-33) 07/14/23 14:25 MCHC 34.1 g/dL (30-55) 07/14/23 14:25 RDW 14.3 % (12.1-15.1) 07/14/23 14:25 Plt Count 134 10^3/cmm (157-399) L 07/14/23 14:25 MPV 11.4 fL (7.4-10.4) H 07/14/23 14:25 Neut % (Auto) 40.1 % 07/14/23 14:25 Lymph % (Auto) 48.6 % 07/14/23 14:25 [place] % (Auto) 10.0 % 07/14/23 14:25 Eos % (Auto) 0.2 % 07/14/23 14:25 Baso % (Auto) 0.4 % 07/14/23 14:25 Neut # (Auto) 3.69 10^3/uL (1.8-7.7) 07/14/23 14:25 Lymph # (Auto) 4.5 10^3/uL (0.8-4.8) 07/14/23 14:25 [place] # (Auto) 0.9 10^3/uL (0.2-0.9) 07/14/23 14:25 Eos # (Auto) 0.0 10^3/uL (0.0-0.8) 07/14/23 14:25 Baso # (Auto) 0.0 10^3/uL (0.0-0.1) 07/14/23 14:25 Nucleated RBC % (auto) 0 % 07/14/23 14:25 Nucleated RBCs # 0.0 /100WBC 07/14/23 14:25 D-Dimer 1.34 ug/mLFEU (0-0.59) H 07/14/23 14:25 Specimen Type Arterial 07/14/23 15:46 Sample Site Radial, left 07/14/23 15:46 ABG pH 7.37 (7.35-7.45) 07/14/23 15:46 ABG pCO2 29.5 mmHg (35-45) L 07/14/23 15:46 ABG pO2 84.4 mmHg (80.0-100.0) 07/14/23 15:46 ABG PO2/FiO2 Ratio 0 07/14/23 15:46 ABG HCO3 17.0 mmol/L (22-26) L 07/14/23 15:46 ABG O2 Saturation 97.1 07/14/23 15:46 ABG Base Excess -6.9 mmol/L (-2.0-2.0) L 07/14/23 15:46 Kash Test Pos 07/14/23 15:46 A-a O2 Gradient 3.5 mmHg (5-10) L 07/14/23 15:46 Hematocrit 47.1 % (42-52) 07/14/23 15:46 Hgb O2 Saturation 95.1 % (95-100) 07/14/23 15:46 Carboxyhemoglobin 1.5 %THgb (0.4-20.1) 07/14/23 15:46 Methemoglobin 0.5 % (0.4-1.5) 07/14/23 15:46 Total Hemoglobin 15.4 g/dL (14-18) 07/14/23 15:46 Sodium 128.0 mmol/L (131-143) L 07/14/23 15:46 Potassium 4.1 mmol/L (3.5-5.0) 07/14/23 15:46 Glucose 204.0 mg/dL (70-115) H 07/14/23 15:46 Ionized Calcium 1.2 mmol/L (1.1-1.4) 07/14/23 15:46 O2 Delivery Device Room air 07/14/23 15:46 FiO2 21.0 % 07/14/23 15:46 Woodworking Shop Hand ID Amh 07/14/23 15:46 Sodium 130 mmol/L (136-145) L 07/14/23 14:25 Potassium 4.5 mmol/L (3.5-5.1) 07/14/23 14:25 Chloride 86 mmol/L (98-107) L 07/14/23 14:25 Carbon Dioxide 19 mmol/L (22-29) L 07/14/23 14:25 Anion Gap 29.5 (5-19) H 07/14/23 14:25 BUN 34 mg/dL (6-20) H 07/14/23 14:25 Creatinine 1.7 mg/dL (0.7-1.2) H 07/14/23 14:25 GFR Calculation 41.5 mL/min (90-130) L 07/14/23 14:25 Glucose 240 mg/dL (65-115) H 07/14/23 14:25 POC Glucose 239 mg/dL (70-110) H 07/14/23 14:47 Calculated Osmolality 285 mOsm/kg (285-295) 07/14/23 14:25 Lactic Acid 4.3 mmol/L (0.5-2.2) H* 07/14/23 15:00 Lactic Acid (Sepsis) 2.3 mmol/L (0.5-2.2) H 07/14/23 17:20 Calcium 10.4 mg/dL (8.5-10.5) 07/14/23 14:25 Magnesium 1.9 mg/dL (1.7-2.3) 07/14/23 14:25 Total Bilirubin 0.9 mg/dL (0.15-1.2) 07/14/23 14:25 AST 25 U/L (0-40) 07/14/23 14:25 ALT 23 U/L (0-41) 07/14/23 14:25 Alkaline Phosphatase 61 U/L (40-130) 07/14/23 14:25 Troponin T Baseline 33 ng/L (0-15) H 07/14/23 14:25 Troponin T 120 Minute 30.40 ng/L (0-15) H 07/14/23 17:20 Delta Troponin T -2.60 ABS# (0-10) L 07/14/23 17:20 Troponin T Hi Sens 6Hr 26.26 ng/L (0-15) H 07/14/23 20:29 Troponin T Hi Sens 6Hr Delta -6.74 ng/L (0-12) L 07/14/23 20:29 C-Reactive Protein 72.0 mg/L (0.0-4.9) H 07/14/23 14:25 Total Protein 7.0 g/dL (6.6-8.7) 07/14/23 14:25 Albumin 4.0 g/dL (3.5-5.2) 07/14/23 14:25 Globulin 3.0 g/dL (1.3-4.6) 07/14/23 14:25 Procalcitonin 0.54 ng/mL (0-0.5) H 07/14/23 14:25 TSH 4.74 uIU/mL (0.27-4.20) H 07/14/23 14:25 Nasal Influ A H1 2008 PCR Not detected (NOT DETECT) 07/14/23 18:35 Serum Ketones Negative (Negative) 07/14/23 14:25 Adenovirus (PCR) Not detected (NOT DETECT) 07/14/23 18:35 C. pneumoniae DNA (PCR) Not detected (NOT DETECT) 07/14/23 18:35 Coronavirus 229E (PCR) Not detected (NOT DETECT) 07/14/23 18:35 Human Metapneumovir PCR Not detected (NOT DETECT) 07/14/23 18:35 Influenza A (H1) PCR Not detected (NOT DETECT) 07/14/23 18:35 Influenza A (H3) PCR Not detected (NOT DETECT) 07/14/23 18:35 Influenza Type A (PCR) Not detected (NOT DETECT) 07/14/23 18:35 Influenza Type B (PCR) Not detected (NOT DETECT) 07/14/23 18:35 M. pneumoniae (PCR) Not detected (NOT DETECT) 07/14/23 18:35 Parainfluenza 1 (PCR) Not detected (NOT DETECT) 07/14/23 18:35 Parainfluenza 2 (PCR) Not detected (NOT DETECT) 07/14/23 18:35 Parainfluenza 3 (PCR) Not detected (NOT DETECT) 07/14/23 18:35 Parainfluenza 4 (PCR) Not detected (NOT DETECT) 07/14/23 18:35 RSV Type A (PCR) Not detected (NOT DETECT) 07/14/23 18:35 RSV Type B (PCR) Not detected (NOT DETECT) 07/14/23 18:35 Entero/Rhino (PCR) Not detected (NOT DETECT) 07/14/23 18:35 SARS-CoV-2 (PCR) Detected (NOT DETECT) A 07/14/23 18:35 All radiology interpretation(s) finalized by discharge EKG Data EKG 1: I personally reviewed and interpreted this EKG as follows: EKG Interpretation Date: 07/14/23 EKG interpretation time: 16:03 Prior EKG tracings: not available for review Interpretation: EKG showed ventricular rate 94 beats minute, MI interval 135, QRS duration 91, QTc of 472, sinus rhythm, EKG 2: I personally reviewed and interpreted this EKG as follows: EKG Interpretation Date: 07/14/23 EKG interpretation time: 17:53 Prior EKG tracings: available for review Interpretation: EKG showed ventricular rate 89 bpm, MI interval 119, QRS duration 106, QTc of 457, sinus rhythm with short MI interval EKG 3: I personally reviewed and interpreted this EKG as follows: EKG Interpretation Date: 07/14/23 EKG interpretation time: 20:59 Prior EKG tracings: available for review Interpretation: EKG showed ventricular rate 92 beats minute, MI interval 132, QRS duration 101, QTc of 443, sinus rhythm, Discharge Plan Discharge Patient Disposition: Home Clinical Impression: COVID-19, Acute dehydration, Elevated lactic acid level, Long-term use of immunosuppressant medication, Lung transplant status, bilateral Condition: Stable Prescriptions: No Action prednisone 10 mg tablet 10 mg PO DAILY Hold Instructions: Resume on 05/31/21. aspirin [Stacy Low Dose Aspirin] 81 mg Tablet,Delayed Release (Dr/Ec) 81 mg PO DAILY insulin lispro 100 unit/mL Solution See Rx Instructions .ROUTE .COMPLEX Rx Instructions: INJECT 10 UNITS SQ 3X/DAY WITH MEAL IN ADDITION TO SLIDING SCALE, BS 140- 175=2 UNITS;BS 176-200=3 UNITS; BS 201-250=4 UNITS; BS 251-300=6 UNITS;BS 300 = 8 UNITS tacrolimus 0.5 mg capsule See Rx Instructions .ROUTE .COMPLEX Rx Instructions: 4 caps (2mg) po qam and 3 cap(1.5mg) at bedtime rosuvastatin 10 mg tablet 10 mg PO DAILY sulfamethoxazole-trimethoprim 800-160 mg tablet 1 tab PO .ON MON,WED,FRI pantoprazole 40 mg tablet,delayed release (DR/EC) 40 mg PO DAILY cholecalciferol (vitamin D3) [Vitamin D3] 25 mcg (1,000 unit) Capsule 50 mcg PO DAILY calcium carbonate-vitamin D3 [Oysco 500/D] 500 mg(1,250mg) -200 unit tablet 1 tab PO BID gabapentin 600 mg tablet 600 mg PO TID ropinirole 0.25 mg tablet 0.25 mg PO BEDTIME acyclovir 200 mg capsule 200 mg PO BID melatonin 10 mg Tablet 10 mg PO BEDTIME acetaminophen [Tylenol] 325 mg Tablet 650 mg PO Q4H PRN (Reason: Pain) insulin glargine [Lantus Solostar U-100 Insulin] 100 unit/mL (3 mL) insulin pen 15 unit SUBCUT QAM prochlorperazine maleate 5 mg tablet 5 mg PO TID azathioprine 50 mg tablet 150 mg PO QPM citalopram 40 mg tablet 40 mg PO DAILY Colace 100 mg Capsule 100 mg PO DAILY Discharge Orders: Discharge ED (Routine); Ordered 07/14/23 Ordered By: Quan Hurtado Referrals: Solomon Farrell MD [Primary Care Provider] - 1 week Patient Instructions: Dehydration (DC), COVID-19 (Coronavirus Disease 2019) (ED) Activity Restrictions/Additional Instructions: Your COVID test were positive however this may still be positive from the COVID infection approximately 6 weeks ago. Your lab work did improve after we gave you the normal saline and your IV. You are at a high risk of infection due to your immunosuppressants due to your bilateral lung transplant. If you start running a fever to, chills, nausea vomiting, or start feeling worse again please follow-up with your family practice physician and/or come to the emergency room to be evaluated and treated. Coding Level of Care Code ED Senior Service Aide for Jazz Kelley
[2023-07-14 15:37] LABS: Alanine Aminotransferase 23 U/L (0-41); Alkaline Phosphatase 61 U/L (40-130); Anion Gap 29.5 (5-19); Aspartate Amino Transferase 25 U/L (0-40); Blood Urea Nitrogen 34 mg/dL (6-20); Calcium 10.4 mg/dL (8.5-10.5); Carbon Dioxide 19 mmol/L (22-29); Chloride 86 mmol/L (98-107); Glomerular Filtration Rate 41.5 mL/min (90-130); Glucose 240 mg/dL (65-115); Magnesium 1.9 mg/dL (1.7-2.3); Osmolality Calculated 285 mOsm/kg (285-295); Potassium 4.5 mmol/L (3.5-5.1); Sodium 130 mmol/L (136-145); Total Bilirubin 0.9 mg/dL (0.15-1.2)
[2023-07-14] MEDS: sodium chloride 0.9% 1,000 ML 999 ML IV ×2 (15:53→19:04)
[2023-07-14 15:57] LABS: ABG PCO2 29.5 mmHg (35-45); ABG PH Result 7.37 (7.35-7.45); Alveolar-Arterial Oxygen Gradi 3.5 mmHg (5-10); Arterial Blood Gas Hematocrit 47.1 % (42-52); Base Excess ABG -6.9 mmol/L (-2.0-2.0); Blood Gas Allen Test Pos; Blood Gas Operator Identificat AMH; Blood Gas Sample Site Radial, left; Blood Gas Sample Type Arterial; Carboxyhemoglobin 1.5 %THgb (0.4-20.1); HGB O2 Sat 95.1 % (95-100); Ionized Calcium Level - ABG 1.2 mmol/L (1.1-1.4); Methemoglobin 0.5 % (0.4-1.5); Oxygen Device ROOM AIR; Oxygen Saturation ABG 97.1; PO2 ABG 84.4 mmHg (80.0-100.0); PO2 FiO2 Ratio Arterial Blood 0; Potassium Level - ABG 4.1 mmol/L (3.5-5.0); Total Hemoglobin 15.4 g/dL (14-18)
[2023-07-14 16:00] LABS: D Dimer 1.34 ug/mLFEU (0-0.59)
--- NOTE | 2023-07-14 16:02 | CTR_ITS ---
PROCEDURE INFORMATION: Exam: CTA Chest With Contrast Exam date and time: 07/14/2023 4:54 PM Age: 57 years old Clinical indication: Shortness of breath; Prior surgery; Surgery date: 6+ months; Surgery type: Bilateral lung transplant; Patient HX: HX pulmonary fibrosis; Additional info: Dyspnea, tachycardia, elevated d dimer, bilat lung transplan TECHNIQUE: Imaging protocol: Computed tomographic angiography of the chest with contrast. Exam focused on the arteries. 3D rendering (Not supervised by radiologist): MIP and/or 3D reconstructed images were created by the technologist. Radiation optimization: All CT scans at this facility use at least one of these dose optimization techniques: automated exposure control; mA and/or kV adjustment per patient size (includes targeted exams where dose is matched to clinical indication); or iterative reconstruction. Contrast material: OMNI 350; Contrast volume: 57 ml; Contrast route: INTRAVENOUS (IV); REPORTING DATA: Count of CT and Cardiac NM exams in prior 12 months: This patient has received [address] and 0 known cardiac nuclear medicine studies in the 12 months prior to the current study. COMPARISON: CT angio chest PE protcl [id number] 05/25/2021 3:08 PM RADIATION DOSE METRICS: Total DLP (mGy-cm): 158.72 FINDINGS: Pulmonary arteries: Pulmonary vasculature is adequately opacified without filling defects or other evidence of acute pulmonary embolism. Aorta: Unremarkable. No aortic aneurysm. No aortic dissection. Lungs: Scattered coarsened interstitial bandlike opacities and scarring with superimposed subsegmental atelectasis present peripherally within the mid to lower lung zones most pronounced at the right lung base but there is some accompanying bronchiectasis.. Findings have progressed from previous exam and may in part be secondary to chronic transplant graft dysfunction. 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 Pleural spaces: Small left basilar pleural effusion mildly increased from previous exam. Heart: Heart is not significantly enlarged. There are moderate calcifications of the coronary arteries. No significant pericardial effusion. Lymph nodes: Unremarkable. No enlarged lymph nodes. Bones/joints: Prior median sternotomy. No acute bony abnormalities. Soft tissues: Unremarkable. CT/CT angio chest PE protcl [id number] IMPRESSION: 1. Negative CT angiogram of the chest. No evidence of acute pulmonary embolism. 2. Progressive lung changes mid-lower lung zones as discussed above.
--- NOTE | 2023-07-14 16:03 | ECG_ITS ---
[facility] Test Date: 2023-07-14 Pat Name: Brandon Chi Department: Room: Gender: Male Hall Monitor: : 1965 Requested By: Quan Hurtado Order Number: [id number] Denis MD: Eric Johansen M.D. Measurements Intervals [place] Rate: 94 P: 46 NC: 135 QRS: 33 QRSD: 91 T: 74 QT: 420 QTc: 528 Interpretive Statements SINUS RHYTHM PROLONGED QT INTERVAL Compared to ECG 10/16/2022 12:20:40 Prolonged QT interval now present Incomplete right bundle-branch block no longer present T-wave abnormality no longer present Electronically Signed On 07-15-2023 10:21:11 DEFECTIVE CIGARETTE SLITTER by Eric Johansen M.D. [email or web address] ([employer])/store/[id number]
[2023-07-14 16:30] VITALS: BP 100/74; PULSE 92; RESP 18
[2023-07-14 16:49] LABS: Reflex Lactate Order REFLEX LACTIC ORDERD
--- NOTE | 2023-07-14 16:50 | ECG_ITS ---
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 Measurements Intervals [place] Rate: 89 P: 46 AR: 119 QRS: 27 QRSD: 106 T: 61 QT: 411 QTc: 500 Interpretive Statements SINUS RHYTHM WITH SHORT AR INTERVAL Compared to ECG 07/14/2023 16:03:28 Short AR interval now present Prolonged QT interval no longer present Electronically Signed On 07-15-2023 10:23:25 PRACTICE SPECIALIST by Eric Johansen M.D. [id number]
[2023-07-14] MEDS: iohexol 350 mg/mL 500 mL Btl (per mL) IV (16:57)
[2023-07-14 17:30] VITALS: BP 105/76; PULSE 90; O2SAT 96
[2023-07-14] MEDS: cefTRIAXone 1,000 MG in sodium chloride 0.9% (plus) 50 ML 100 MG IV (17:42)
[2023-07-14 17:58] LABS: Lactic Acid level (Lactate) 2.3 mmol/L (0.5-2.2)
[2023-07-14 18:00] VITALS: BP 108/85; PULSE 93; RESP 16; O2SAT 97
--- NOTE | 2023-07-14 20:59 | ECG_ITS ---
[facility] Test Date: 2023-07-14 Pat Name: Brandon Chi Department: Room: Gender: Male Quick Service Technician: : 1965 Requested By: Quan Hurtado Order Number: [id number] Denis MD: Eric Johansen M.D. Measurements Intervals [place] Rate: 92 P: 50 VA: 132 QRS: 40 QRSD: 101 T: 63 QT: 393 QTc: 488 Interpretive Statements SINUS RHYTHM Compared to ECG 07/14/2023 17:53:40 Short VA interval no longer present Electronically Signed On 07-15-2023 10:23:06 HIRED WORKER by Eric Johansen M.D. [email or web address] branch hospitalBunker Modeuniversity hospitals samaritan medical centerMATINAS BIOPHARMA/store/[id number]
[2023-07-14 21:05] LABS: Adenovirus Not Detected (NOT DETECT); Chlamydia Pneumoniae Not Detected (NOT DETECT); Coronavirus 229E,HKU1,NL63,OC4 Not Detected (NOT DETECT); Human Metapneumovirus Not Detected (NOT DETECT); Human Rhinovirus/Enterovirus Not Detected (NOT DETECT); Influenza A Not Detected (NOT DETECT); Influenza A H1 Not Detected (NOT DETECT); Influenza A H1-2009 Not Detected (NOT DETECT); Influenza A H3 Not Detected (NOT DETECT); Influenza B Not Detected (NOT DETECT); Mycoplasma Pneumoniae Not Detected (NOT DETECT); Parainfluenza Virus Type 1 Not Detected (NOT DETECT); Parainfluenza Virus Type 2 Not Detected (NOT DETECT); Parainfluenza Virus Type 3 Not Detected (NOT DETECT); Parainfluenza Virus Type 4 Not Detected (NOT DETECT); Respiratory Syncytial Virus A Not Detected (NOT DETECT); Respiratory Syncytial Virus B Not Detected (NOT DETECT)
[2023-07-14 21:08] LABS: SARS-COV-2 Detected (NOT DETECT)
[2023-07-14 21:18] LABS: Troponin 5 6HR 26.26 ng/L (0-15)
[2023-07-14 21:21] LABS: Troponin 5 6HR Delta -6.74 ng/L (0-12)
[2023-07-14 21:46] VITALS: BP 108/85; PULSE 93; RESP 16; O2SAT 97
== END 2023-07-14 21:52 | disposition home or self-care (01) ==
PROVIDERS: Emergency Provider Emergency Medicine; PCP Family Medicine
DX: U07.1 COVID-19 (principal); E86.0 Dehydration; R74.02 Elevation of levels of lactic acid dehydrogenase [LDH]; Z79.60 Long term (current) use of unspecified immunomodulators and immunosuppressants; Z94.2 Lung transplant status; Z79.82 Long term (current) use of aspirin; Z79.4 Long term (current) use of insulin; Z85.47 Personal history of malignant neoplasm of testis; E11.9 Type 2 diabetes mellitus without complications; I25.2 Old myocardial infarction; Z87.891 Personal history of nicotine dependence
CPT/HCPCS: 36415; 36416; 36600; 71045; 71275; 80051; 80053; 82009; 82330; 82805; 82962; 83605; 83735; 84145; 84443; 84484; 85025; 85378; 86140; 87040; 87486; 87581; 87633; 93005; 96365; 99285; J0696; J7030; Q9967

== ENCOUNTER 2023-08-28 09:05 | Oncology outpatient (recurring) (ONCR) | payer MEDICARE, SELFPAY ==
[2023-08-28 09:20] VITALS: BP 118/78; PULSE 94; RESP 14; TEMP 36; O2SAT 94
[2023-08-28] MEDS: diphenhydrAMINE 25 mg Capsule PO (09:51)
[2023-08-28] MEDS: sodium chloride 0.9% 250 ML 75 ML IV (09:51)
[2023-08-28] MEDS: acetaminophen 325 mg Tablet 650 MG PO (09:52)
[2023-08-28] MEDS: immune globulin (Privigen ONC) 40 GM in empty flexible container 1 EACH IV (09:53)
[2023-08-28 10:30] VITALS: BP 130/83; PULSE 75; RESP 16; TEMP 36.6; O2SAT 95
[2023-08-28 11:00] VITALS: BP 128/74; PULSE 78; RESP 16; TEMP 36.4; O2SAT 94
[2023-08-28 11:30] VITALS: BP 137/83; PULSE 74; RESP 16; TEMP 36.3; O2SAT 94
[2023-08-28 12:00] VITALS: BP 129/77; PULSE 74; RESP 16; TEMP 36.3; O2SAT 96
[2023-08-28 12:57] VITALS: BP 147/83; PULSE 73; RESP 16; TEMP 36.9; O2SAT 95
== END 2023-09-13 23:59 | disposition home or self-care (01) ==
PROVIDERS: PCP Family Medicine; Visit Provider Internal Medicine Pulmonary Disease
DX: T86.819 Unspecified complication of lung transplant (principal)
CPT/HCPCS: 96365; 96366; J1459; J7050

== ENCOUNTER 2023-08-30 10:20 | Outpatient (CLI) | payer MEDICARE, SELFPAY ==
[2023-08-30 11:10] LABS: Anion Gap 17.1 (5-19); Blood Urea Nitrogen 16 mg/dL (8-23); Carbon Dioxide 23 mmol/L (22-29); Chloride 98 mmol/L (98-107); Glomerular Filtration Rate 76.2 mL/min (90-130); Glucose 180 mg/dL (65-115); Osmolality Calculated 284 mOsm/kg (285-295); Potassium 4.1 mmol/L (3.5-5.1); Sodium 134 mmol/L (136-145)
[2023-08-30 11:34] LABS: Alanine Aminotransferase 12 U/L (0-41); Albumin Level 3.7 g/dL (3.5-5.2); Alkaline Phosphatase 51 U/L (40-130); Aspartate Amino Transferase 18 U/L (0-40); Globulin 4.1 g/dL (1.3-4.6); Total Bilirubin 0.3 mg/dL (0.15-1.2); Total Protein 7.8 g/dL (6.6-8.7)
--- NOTE | 2023-08-30 13:55 | XR_ITS ---
WS: [id number] PA and lateral chest, 08/30/2023 Clinical Data: ENCOUNTER FOR AFTERCARE FOLLOWING LUNG TRANSPLANT Comparison: Portable chest, 07/14/2023 Findings: No nodules, masses or effusions are seen. There are bilateral lower lobe opacities which re present bullous emphysema changes and pleural thickening. The heart is normal. No definite pneumonia is seen but there is increased bilateral lower lobe opacity. The upper lobes are clear. Midline media stinal sutures are seen. The pulmonary vascularity is not increased. Impression: 1. Slight increase in bilateral lower lobe opacities which could represent pneumonia. 2. Bilateral lower lobe pleural thickening and bullous change which remains the same.
[2023-08-30 16:35] LABS: Adenovirus Not Detected (NOT DETECT); Chlamydia Pneumoniae Not Detected (NOT DETECT); Coronavirus 229E,HKU1,NL63,OC4 Not Detected (NOT DETECT); Human Metapneumovirus Not Detected (NOT DETECT); Human Rhinovirus/Enterovirus Not Detected (NOT DETECT); Influenza A Not Detected (NOT DETECT); Influenza A H1 Not Detected (NOT DETECT); Influenza A H1-2009 Not Detected (NOT DETECT); Influenza A H3 Not Detected (NOT DETECT); Influenza B Not Detected (NOT DETECT); Mycoplasma Pneumoniae Not Detected (NOT DETECT); Parainfluenza Virus Type 1 Not Detected (NOT DETECT); Parainfluenza Virus Type 2 Not Detected (NOT DETECT); Parainfluenza Virus Type 3 Not Detected (NOT DETECT); Parainfluenza Virus Type 4 Not Detected (NOT DETECT); Respiratory Syncytial Virus A Not Detected (NOT DETECT); Respiratory Syncytial Virus B Not Detected (NOT DETECT); SARS-COV-2 Not Detected (NOT DETECT)
[2023-09-05 01:59] LABS: CMV DNA By PCR NOT DETECTED; CMV DNA, QN PCR NOT DETECTED Log IU/mL; SOURCE WHOLE BLOOD
== END 2023-08-30 10:21 | disposition home or self-care (01) ==
PROVIDERS: PCP Family Medicine; Visit Provider Internal Medicine Pulmonary Disease
DX: Z48.24 Encounter for aftercare following lung transplant (principal); R91.8 Other nonspecific abnormal finding of lung field
CPT/HCPCS: 36415; 71046; 80053; 80197; 87486; 87496; 87581; 87633

== ENCOUNTER 2023-09-25 11:53 | Oncology outpatient (recurring) (ONCR) | payer MEDICARE, SELFPAY ==
[2023-09-25] VITALS (9 sets, daily range): BP systolic 108–126; BP diastolic 72–84; PULSE 71–77; RESP 16; TEMP 36.3–36.7; O2SAT 94–98
[2023-09-25] MEDS: diphenhydrAMINE 25 mg Capsule PO (12:47)
[2023-09-25] MEDS: acetaminophen 325 mg Tablet 650 MG PO (12:47)
[2023-09-25] MEDS: immune globulin (Privigen ONC) 40 GM in empty flexible container 1 EACH IV (13:20)
== END 2023-10-14 23:59 | disposition home or self-care (01) ==
PROVIDERS: PCP Family Medicine; Visit Provider Internal Medicine Pulmonary Disease
DX: T86.819 Unspecified complication of lung transplant (principal)
CPT/HCPCS: 96365; 96366; J1459

== ENCOUNTER 2023-10-23 11:50 | Oncology outpatient (recurring) (ONCR) | payer MEDICARE, SELFPAY ==
[2023-10-23] VITALS (8 sets, daily range): BP systolic 103–153; BP diastolic 68–88; PULSE 68–79; RESP 15–17; TEMP 36.2–36.7; O2SAT 94–96
[2023-10-23] MEDS: acetaminophen 325 mg Tablet 650 MG PO (12:27)
[2023-10-23] MEDS: diphenhydrAMINE 25 mg Capsule PO (12:28)
[2023-10-23] MEDS: immune globulin (Privigen ONC) 40 GM in empty flexible container 1 EACH 26.1000000000000014 GM IV (13:03)
== END 2023-11-13 23:59 | disposition home or self-care (01) ==
LOC: ONCMED 11:51
PROVIDERS: PCP Family Medicine; Visit Provider Internal Medicine Pulmonary Disease
DX: T86.819 Unspecified complication of lung transplant (principal)
CPT/HCPCS: 96365; 96366; J1459

== ENCOUNTER 2023-10-24 15:14 | Outpatient (CLI) | payer MEDICARE, SELFPAY ==
--- NOTE | 2023-10-24 15:21 | US_ITS ---
WS: [id number] URINARY BLADDER ULTRASOUND HISTORY: INCREASED URINATION FREQUENCY COMPARISON: None available. Urinary bladder is well distended. No intraluminal filling defect. No free fluid adjacent to the urin sushant bladder. Bilateral ureteral jets are identified in the urinary bladder. Posterior wall is mildly thickened measuring up to 4 mm. May be due to a mild outlet obstruction. Bladder Prevoid: 10.9 cm x 6.8 cm x 8.3 cm. Prevoid volume: 323.5 ml. Bladder Postvoid: 1.6 cm x 2.0 cm x 1.6 cm. Postvoid volume: 2.7 ml. IMPRESSION: 1. Normal urinary bladder. No intraluminal filling defect. 2. No significant post void residual.
== END 2023-10-24 15:15 | disposition home or self-care (01) ==
LOC: RAD 15:14
PROVIDERS: PCP Family Medicine; Visit Provider Family Medicine
DX: R35.0 Frequency of micturition (principal)
CPT/HCPCS: 76857

== ENCOUNTER 2023-11-20 12:04 | Oncology outpatient (recurring) (ONCR) | payer MEDICARE, SELFPAY ==
[2023-11-20] VITALS (9 sets, daily range): BP systolic 102–150; BP diastolic 69–98; PULSE 43–68; RESP 16–18; TEMP 36.2–36.9; O2SAT 96–98
[2023-11-20] MEDS: acetaminophen 325 mg Tablet 650 MG PO (13:01)
[2023-11-20] MEDS: diphenhydrAMINE 25 mg Capsule PO (13:01)
[2023-11-20] MEDS: immune globulin (Privigen ONC) 40 GM in empty flexible container 1 EACH 8.80000000000000071 GM IV (13:07)
== END 2023-12-14 23:59 | disposition home or self-care (01) ==
PROVIDERS: PCP Family Medicine; Visit Provider Internal Medicine Pulmonary Disease
DX: T86.819 Unspecified complication of lung transplant (principal); Y83.0 Surgical operation with transplant of whole organ as the cause of abnormal reaction of the patient, or of later complication, without mention of misadventure at the time of the procedure
CPT/HCPCS: 96365; 96366; 96375; J1459

== ENCOUNTER 2023-12-18 11:54 | Oncology outpatient (recurring) (ONCR) | payer MEDICARE, SELFPAY ==
[2023-12-18] VITALS (10 sets, daily range): BP systolic 124–146; BP diastolic 77–92; PULSE 72–92; RESP 17; TEMP 36.3–36.7; O2SAT 94–97
[2023-12-18] MEDS: acetaminophen 325 mg Tablet 650 MG PO (12:57)
[2023-12-18] MEDS: diphenhydrAMINE 25 mg Capsule PO (12:58)
[2023-12-18] MEDS: immune globulin (Privigen ONC) 40 GM in empty flexible container 1 EACH IV (13:39)
== END 2024-01-13 23:59 | disposition home or self-care (01) ==
LOC: ONCMED 11:55
PROVIDERS: PCP Family Medicine; Visit Provider Internal Medicine Pulmonary Disease
DX: T86.819 Unspecified complication of lung transplant (principal); Y83.0 Surgical operation with transplant of whole organ as the cause of abnormal reaction of the patient, or of later complication, without mention of misadventure at the time of the procedure
CPT/HCPCS: 96365; 96366; J1459

== ENCOUNTER 2024-02-12 12:00 | Oncology outpatient (recurring) (ONCR) | payer MEDICARE, SELFPAY ==
[2024-01-15 12:37] VITALS: BP 127/82; PULSE 64; RESP 16; TEMP 36.5; O2SAT 96
[2024-01-15] MEDS: acetaminophen 325 mg Tablet 650 MG PO (12:39)
[2024-01-15] MEDS: diphenhydrAMINE 25 mg Capsule PO (12:40)
[2024-01-15] MEDS: immune globulin (Privigen ONC) 40 GM in empty flexible container 1 EACH IV (12:48)
[2024-01-15 13:25] VITALS: BP 122/74; PULSE 66; RESP 16; TEMP 36.5; O2SAT 98
[2024-01-15 13:55] VITALS: BP 133/80; PULSE 76; RESP 16; TEMP 36.3; O2SAT 97
[2024-01-15 14:25] VITALS: BP 137/83; PULSE 73; RESP 16; TEMP 36.7; O2SAT 96
[2024-01-15 14:58] VITALS: BP 136/85; PULSE 70; RESP 15; O2SAT 95
[2024-01-15 15:41] VITALS: BP 147/93; PULSE 76; RESP 16; O2SAT 95
[2024-02-12] VITALS (11 sets, daily range): BP systolic 111–137; BP diastolic 49–90; PULSE 60–75; RESP 17–18; TEMP 35.1–36.6; O2SAT 94–96
[2024-02-12] MEDS: acetaminophen 325 mg Tablet 650 MG PO (12:34)
[2024-02-12] MEDS: diphenhydrAMINE 25 mg Capsule PO (12:34)
[2024-02-12] MEDS: immune globulin (Privigen ONC) 40 GM in empty flexible container 1 EACH IV (12:51)
== END 2024-02-12 23:59 | disposition home or self-care (01) ==
PROVIDERS: PCP Family Medicine; Visit Provider Internal Medicine Pulmonary Disease
DX: Z53.9 Procedure and treatment not carried out, unspecified reason; T86.819 Unspecified complication of lung transplant; Y83.0 Surgical operation with transplant of whole organ as the cause of abnormal reaction of the patient, or of later complication, without mention of misadventure at the time of the procedure; Z79.620 Long term (current) use of immunosuppressive biologic
CPT/HCPCS: 96365; 96366; J1459

== ENCOUNTER → 2024-03-04 13:26 | Outpatient (BNVA) | payer MEDICARE, SELFPAY | PROVIDERS: PCP Family Medicine; Visit Provider Podiatrist Foot & Ankle Surgery | DX: B07.0 Plantar wart (principal) | CPT/HCPCS: 99203 ==

== ENCOUNTER 2024-03-12 12:01 | Oncology outpatient (recurring) (ONCR) | payer MEDICARE, SELFPAY ==
[2024-03-12 12:22] VITALS: BP 134/86; PULSE 73; RESP 16; TEMP 36.9; O2SAT 96
[2024-03-12] MEDS: acetaminophen 325 mg Tablet 650 MG PO (12:58)
[2024-03-12] MEDS: diphenhydrAMINE 25 mg Capsule PO (12:58)
[2024-03-12] MEDS: immune globulin (Privigen ONC) 40 GM in empty flexible container 1 EACH IV (13:29)
[2024-03-12 14:10] VITALS: BP 145/84; PULSE 69; RESP 16; TEMP 36.3; O2SAT 96
[2024-03-12 14:40] VITALS: BP 137/85; PULSE 66; RESP 16; TEMP 36.4; O2SAT 96
[2024-03-12 15:10] VITALS: BP 154/99; PULSE 76; RESP 16; TEMP 36.4; O2SAT 96
[2024-03-12 15:40] VITALS: BP 155/90; PULSE 89; RESP 16; TEMP 36.1; O2SAT 96
[2024-03-12 16:24] VITALS: BP 161/92; PULSE 73; TEMP 36.1; O2SAT 96
== END 2024-03-15 23:59 | disposition home or self-care (01) ==
PROVIDERS: PCP Family Medicine; Visit Provider Internal Medicine Pulmonary Disease
DX: T86.819 Unspecified complication of lung transplant (principal); Y83.0 Surgical operation with transplant of whole organ as the cause of abnormal reaction of the patient, or of later complication, without mention of misadventure at the time of the procedure
CPT/HCPCS: 96365; 96366; J1459

== ENCOUNTER 2024-05-20 16:19 | Outpatient (CLI) | payer MEDICARE, SELFPAY ==
--- NOTE | 2024-05-20 16:25 | XR_ITS ---
WS: [id number] XR ribs LT mn 3V w CXR1V [id number] REASON FOR EXAM: PLEURODYNIA FINDINGS: No acute or subacute fracture. No focal bone lesion. No underlying acute lung or pleural abnormality. XR/XR ribs LT mn 3V w CXR1V [id number] IMPRESSION: No significant abnormality of the left ribs.
== END 2024-05-20 16:20 | disposition home or self-care (01) ==
LOC: RAD 16:20
PROVIDERS: PCP Family Medicine; Visit Provider Family Medicine
DX: R07.81 Pleurodynia (principal)
CPT/HCPCS: 71101

== ENCOUNTER 2024-12-04 11:51 | Outpatient (CLI) | payer MEDICARE, SELFPAY ==
--- NOTE | 2024-12-04 11:56 | MR_ITS ---
WS: [id number] MRI BRAIN WITH AND WITHOUT CONTRAST HISTORY: IMBALANCE/MEMORY LOSS COMPARISON: None available. TECHNIQUE: Multiplanar imaging performed through the brain with MultiHance 20 ml's IV. No acute infarcts are seen. [place]-white matter differentiation is well preserved. There are a few scattered T2 and FLAIR signal subcortical hyperintensities. No susceptibility artifacts or prior lacunar infarcts. Ventricles and extra-axial spaces are normal. Clivus and pituitary gland are normal. Visualized posterior fossa and brainstem are also normal. Postcontrast images are negative for masses or vascular malformations. Dural venous sinuses are normal. Paranasal sinuses: Well aerated with no significant disease. Mastoid air cells: Normal. Calvarium and scalp: Normal. MR/MR head wo/w con [id number] IMPRESSION: 1. No acute infarct or hemorrhage. 2. A mild small vessel type changes in the subcortical white matter. 3. No prior infarct. 4. No mass or vascular malformation. 5. No hippocampal atrophy.
[2024-12-04] MEDS: gadobenate dimeglumine 20 mL vial IV (12:49)
== END 2024-12-04 11:52 | disposition home or self-care (01) ==
LOC: RAD 11:52
PROVIDERS: PCP Family Medicine; Visit Provider Psychiatry & Neurology Neurology
DX: R26.89 Other abnormalities of gait and mobility (principal); R41.3 Other amnesia; R93.0 Abnormal findings on diagnostic imaging of skull and head, not elsewhere classified
CPT/HCPCS: 70553

== ENCOUNTER → 2025-02-09 15:04 | Outpatient (BNVA) | payer MEDICARE, SELFPAY | PROVIDERS: PCP Family Medicine; Visit Provider Nurse Practitioner Family | DX: L82.1 Other seborrheic keratosis (principal); L81.4 Other melanin hyperpigmentation; D48.5 Neoplasm of uncertain behavior of skin; L57.0 Actinic keratosis | CPT/HCPCS: 11102; 17000; 99203 ==